=== PATIENT | female | born 1955 | race Caucasian/White ===

== ENCOUNTER 2016-06-15 07:59 | Emergency (ER) | payer BC ==
[~2016-06-15] VITALS: Ht 157.5 cm; Wt 87.7 kg
[~2016-06-15 07:59] MED LIST: AMLO-114 PO; AMX500 PO; ASCO500T3 PO; CRAN1CAP15 PO; DICL75TA2 PO; GLC/500 PO; GLUCTAB7 PO; LEVO175T PO; LOSA100T26 PO; MULTTAB58 PO; OMEG10007 PO; PRLSR20 PO; RANI300C PO; ROSU20TA PO
[2016-06-15 08:03] VITALS: TEMP 36.7; Ht 157.5 cm; Wt 87.7 kg
--- NOTE | 2016-06-15 08:53 | DIAGNOSTIC IMAGING REPORT ---
LEFT FOURTH FINGER 3 VIEWS HISTORY: Left fourth finger pain. COMPARISON: None. FINDINGS: There is no fracture or dislocation. Mild soft tissue swelling at the PIP joint. Mild osteoarthritis at the DIP and PIP joints. No radiopaque foreign bodies. IMPRESSION: No fracture or dislocation within the left fourth finger. Electronically signed by: Elder Eaton M.D. 06/15/2016 8:51 AM Dictated Date/Time: 06/15/2016 8:49 AM
--- NOTE | 2016-06-15 09:05 | EMERGENCY ROOM VISIT NOTE ---
History First contact with patient: 08:06 Chief Complaint: FINGER PAIN Stated Complaint: LEFT RING FINGER - PAIN History of Present Illness The patient is a 60 year old female who presents to the Emergency Room with complaints of a left ring finger injury last night when she fell off of her chair. She reports stubbing her finger, and has had persistent swelling and pain since that time. The patient did steve tape her fingers together last night, but reported significant pain overnight. She denies any paresthesias or numbness of the finger. The patient is pxbom-[id number], and rates her pain a 7 out of 10. Review of Systems 10 system review was performed and was negative except for pertinent positives and negatives as indicated in history of present illness Past Medical/Surgical History Medical Problems: (1) Diab Bhargavi Wo Compl, Type Ii Or Unspec Type, Not Uncntrld (2) Diverticulosis Colon (W/O Ment Of Hemorrhage) (3) Esophageal Reflux (4) Hyperlipidemia, Unspecified (5) Hypertension Nos (6) Hypothyroidism Nos (7) Kidney stone (8) Migraine Unspecified W/O Intractable Migraine (9) Obesity, Nos (10) Rectocele (11) Ulcer Of Esophagus W Bleeding (12) Uterine Endometriosis Surgical Problems: (1) Knee Joint Replacement Status (2) Tubal Ligation Status Family History FH: diabetes mellitus FH: gallbladder disease FH: heart disease FH: hypertension FH: kidney disease FH: lung disease Social History Smoking Status: Never Smoker Alcohol Use: occasionally Marital Status: Occupation Status: unemployed Current/Historical Medications Scheduled Amlodipine (Norvasc), 10 MG PO DAILY Ascorbic Acid (Vitamin C), 500 MG PO DAILY Cranberry-Vitamin C-Vitamin E (Cranberry), 1 CAP PO DAILY Diclofenac Sodium (Voltaren), 75 MG PO BID Fish Oil ([place]-3), 4 CAP PO DAILY Rxubynxehan-Ndteazsyuln-Zto C- (Glucosamine Chondroitin), 1 TAB PO DAILY Levothyroxine Sodium (Synthroid), 175 MCG PO DAILY Losartan Potassium & Hydrochlo (Losartan Potassium/Hydroc), 1 TAB PO DAILY Metformin Hcl (Glucophage), 1,000 MG PO BID Multiple Vitamin (Multivitamin), 1 TAB PO DAILY Omeprazole (Prilosec), 20 MG PO BID Ranitidine Hcl (Ranitidine Hcl), 300 MG PO HS Rosuvastatin Calcium (Crestor), 20 MG PO DAILY Scheduled PRN Amoxicillin (Amoxicillin), PO for PRN Allergies Coded Allergies: Aspirin (Verified Allergy, Severe, ESOPHAGEAL BLEED, 06/15/16) Codeine (Unverified Allergy, Unknown, GI SYMPTOMS, ALTERED MENTAL STATUS, 06/15/16) Oxycodone (Verified Adverse Reaction, Intermediate, NAUSEA, ALTERED MENTAL STATUS, 06/15/16) Uncoded Allergies: HYDROCODONE-ACETAMINOPHEN (Allergy, Unknown, GI SYMPTOMS, ALTERED MENTAL STATUS, 02/25/14) Physical Exam Vital Signs Date Time Temp Pulse Resp B/P Pulse Ox O2 Delivery O2 Flow Rate FiO2 06/15/16 08:03 36.7 67 16 155/88 97 Room Air Physical Exam CONSTITUTIONAL: Healthy and well nourished. Alert and oriented X 3 with positive affect. HEENT: Normocephalic, atraumatic. Pupils equal, round and reactive. NECK: Full active range of motion without discomfort. MUSCULOSKELETAL: Examination of the left ring finger shows tenderness to palpation through the middle phalanx and DIP region. Collateral ligaments of the PIP and DIP joint are intact. The patient has pain with flexion and extension. No tenderness to palpation through the proximal phalanx or MCP region. Capillary refill is less than 2 seconds. INTEGUMENTARY: No rash or other significant dermatologic conditions noted. NEUROLOGIC: Left fourth fingertip is sensory intact. Medical Decision & Procedures ER Provider Diagnostic Interpretation: My interpretation of left ring finger x-rays does not show any acute fractures or dislocations. Radiologist report is as follows: LEFT FOURTH FINGER 3 VIEWS HISTORY: Left fourth finger pain. COMPARISON: None. FINDINGS: There is no fracture or dislocation. Mild soft tissue swelling at the PIP joint. Mild osteoarthritis at the DIP and PIP joints. No radiopaque foreign bodies. IMPRESSION: No fracture or dislocation within the left fourth finger. ED Course Patient history and physical exam were performed. Nurse's notes were reviewed. The patient refused any analgesics. An ice pack was applied. X-rays of the left fourth finger were normal. The patient was encouraged to continue with steve taping and ice. She may perform range of motion exercises to prevent stiffness. Tylenol as needed for pain. The patient reports that she will be leaving town for 2 weeks starting next Saturday. She has seen Dr. Covarrubias in the past. She was encouraged to call his office for further reevaluation and management before departure. The patient was happy with plan of care, voice understanding of all discharge instructions, and rated her discomfort a 3 out of 10 at the conclusion of my exam. Medical Decision Impression Primary Impression: Left fourth finger contusion Departure Information Referrals Pro,Ankur Diego M.D. (PCP) Patient Instructions My [facility]
[2016-06-15 09:13] VITALS: BP 112/80; PULSE 61; O2SAT 93
[2016-07-30] MEDS ORDERED: TRAM-10 PO (08:48)
[2016-07-30] MEDS ORDERED: HYDR-5688 PO (08:48)
[2016-07-30] MEDS ORDERED: KETO10TA PO (08:48)
== END 2016-06-15 09:10 | disposition home or self-care (01) ==
LOC: C.EDB 08:00 → C.EDA 09:10
DX: S60.052A Contusion of left little finger without damage to nail, initial encounter (principal); W07.XXXA Fall from chair, initial encounter; E11.9 Type 2 diabetes mellitus without complications; K21.9 Gastro-esophageal reflux disease without esophagitis; E78.5 Hyperlipidemia, unspecified

== ENCOUNTER → 2016-07-03 | Outpatient (CLI) | payer BC ==
[~2016-07-03] MED LIST changes: +HYDR-5688 PO; +KETO10TA PO; +TRAM-10 PO
[2016-07-03 11:33] LABS: BLOOD UREA NITROGEN 18 mg/dl (7-18); BUN/CREATININE RATIO 21.1 (10-20); CALCIUM 9.3 mg/dl (8.5-10.1); CARBON DIOXIDE 29 mmol/L (21-32); CHLORIDE 100 mmol/L (98-107); CREATININE 0.84 mg/dl (0.60-1.20); GLUCOSE 105 mg/dl (70-99); POTASSIUM 4.1 mmol/L (3.5-5.1); SODIUM 138 mmol/L (136-145); TRIGLYCERIDES 278 mg/dl (0-150)
[2016-07-03 11:54] LABS: RATIO 31.3 mcg/mg (0-30.0)
[2016-07-03 12:16] LABS: ESTIMATED AVERAGE GLUCOSE 128 mg/dl; HA1C FLAG Normal (Normal)
== END | disposition home or self-care (01) ==
LOC: C.LAB1850 10:17
PROVIDERS: ATTEND Internal Medicine
DX: E03.9 Hypothyroidism, unspecified (principal); E78.5 Hyperlipidemia, unspecified; E11.9 Type 2 diabetes mellitus without complications

== ENCOUNTER → 2016-07-24 | Outpatient (CLI) | payer BC ==
--- NOTE | 2016-07-24 12:06 | DIAGNOSTIC IMAGING REPORT ---
MRI OF THE LUMBAR SPINE WITHOUT IV CONTRAST CLINICAL HISTORY: Low back pain. Left lower extremity radiculopathy. COMPARISON STUDY: No priors. TECHNIQUE: MRI of the lumbar spine is performed utilizing various T1 and T2-weighted sequences in the axial and sagittal planes. IV contrast was not administered for this examination. FINDINGS: Lumbar spine: Vertebral body height and alignment are maintained throughout the lumbar spine. Large hemangiomas are seen in the bodies of L1 and L2. The transverse and spinous processes appear intact. There is no evidence of spondylolysis. Marrow signal intensity is slightly heterogeneous. No destructive bony lesion is seen. Mild chronic degenerative endplate change is present at T11-T12. Intervertebral discs: There is mild degenerative disc desiccation throughout the lumbar spine. No significant loss of height is seen. Paraspinal cord: Visualized spinal cord is normal in morphology and signal intensity. The conus medullaris terminates at the level of L1. The nerve roots of the cauda equina are normal in morphology and signal intensity. L1-L2: Unremarkable. L2-L3: There is minimal posterior disc bulge eccentric to the right with annular fissure. The central canal and neural foramina are widely patent. L3-L4: Unremarkable. L4-L5: There is minimal disc bulge eccentric to the left. The central canal is clear. There is left-sided subarticular stenosis. The disc abuts the exiting left L4 and the transiting left L5 nerve roots. Facet arthropathy causes minimal left-sided neural foraminal stenosis. L5-S1: Facet arthropathy is of no consequence. The central canal and neural foramina are patent. Sacrum: Visualized sacrum is normal in morphology and signal intensity. Soft tissues: The paraspinous soft tissues are normal in appearance. The partially imaged retroperitoneal structures are grossly normal but incompletely evaluated. IMPRESSION: 1. There is no large disc herniation or central canal stenosis. 2. A disc bulge eccentric to left at L4-L5 abuts the exiting left L4 and the transiting left L5 nerve roots. 3. Mild spondylotic change at additional levels as detailed above. See discussion for mwjuc-hu-adfna analysis. Dictated: 07/24/2016 11:44 AM Transcribed: 07/24/2016 12:05 PM Jason Electronically signed by: Bro Avilez M.D. 07/24/2016 1:02 PM Dictated Date/Time: 07/24/2016 11:44 AM
== END | disposition home or self-care (01) ==
LOC: C.MRIBC 10:35
PROVIDERS: ATTEND Orthopaedic Surgery
DX: M54.5 Low back pain (principal); M79.605 Pain in left leg; R93.7 Abnormal findings on diagnostic imaging of other parts of musculoskeletal system

== ENCOUNTER → 2016-09-24 | Outpatient (CLI) | payer BC ==
[~2016-09-24] MED LIST changes: -HYDR-5688 PO; -KETO10TA PO; -LOSA100T26 PO; +LOSA100T33 PO
--- NOTE | 2016-09-25 13:07 | MAMMOGRAPHY REPORT ---
BILATERAL DIGITAL SCREENING MAMMOGRAM TOMOSYNTHESIS WITH CAD: 09/24/2016 CLINICAL HISTORY: Routine screening. Patient has no complaints. TECHNIQUE: Breast tomosynthesis in addition to standard 2D mammography was performed. Current study was also evaluated with a Computer Aided Detection (CAD) system. COMPARISON: Comparison is made to exams dated: 07/21/2015 mammogram, 02/09/2014 mammogram, 10/07/2012 mammogram, 07/19/2011 mammogram, 07/12/2010 mammogram - [facility], and 02/03/2009. BREAST COMPOSITION: The tissue of both breasts is heterogeneously dense, which may obscure small ma sses. FINDINGS: There are scattered benign-appearing microcalcifications in the breasts. No suspicious ma ss, architectural distortion or cluster of microcalcifications is seen. IMPRESSION: ACR BI-RADS CATEGORY 1: NEGATIVE There is no mammographic evidence of malignancy. A 1 year screening mammogram is recommended. The p atient will receive written notification of the results. Approximately 10% of breast cancers are not detected with mammography. A negative mammographic repor t should not delay biopsy if a clinically suggestive mass is present. Yu Winkler M.D. ay/:09/24/2016 16:43:28 Television Engineer: Kelsi ARNOLD(R)(M), [facility] letter sent: Normal 1/2 BI-RADS Code: ACR BI-RADS Category 1: Negative
== END | disposition home or self-care (01) ==
LOC: C.MAMM 08:48
PROVIDERS: ATTEND Obstetrics & Gynecology
DX: Z12.31 Encounter for screening mammogram for malignant neoplasm of breast (principal)

== ENCOUNTER → 2016-11-05 | Outpatient (CLI) | payer BC ==
[2016-11-05 13:01] LABS: ESTIMATED AVERAGE GLUCOSE 134 mg/dl; HA1C FLAG Normal (Normal)
[2016-11-05 13:21] LABS: ALT/SGPT 35 U/L (12-78); AST/SGOT 11 U/L (15-37); BLOOD UREA NITROGEN 20 mg/dl (7-18); BUN/CREATININE RATIO 24.7 (10-20); CALCIUM 8.8 mg/dl (8.5-10.1); CARBON DIOXIDE 30 mmol/L (21-32); CHLORIDE 102 mmol/L (98-107); GLUCOSE 116 mg/dl (70-99); POTASSIUM 3.6 mmol/L (3.5-5.1); SODIUM 140 mmol/L (136-145)
[2016-11-05 13:32] LABS: CHOLESTEROL 127 mg/dl (0-200); CHOLESTEROL/HDL RATIO 3.2; HDL CHOLESTEROL 40 mg/dl; LDL CHOLESTEROL CALCULATED 34 mg/dl; THYROID STIMULATING HORMONE 0.036 uIu/ml (0.300-4.500); TRIGLYCERIDES 263 mg/dl (0-150); VERY LOW DENSITY LIPOPROT CALC 53 mg/dl
== END | disposition home or self-care (01) ==
LOC: C.LAB1850 10:07
PROVIDERS: ATTEND Internal Medicine
DX: E78.5 Hyperlipidemia, unspecified (principal); E11.9 Type 2 diabetes mellitus without complications; E03.9 Hypothyroidism, unspecified

== ENCOUNTER → 2017-03-18 | Outpatient (CLI) | payer BC ==
[2017-03-18 10:02] LABS: BLOOD UREA NITROGEN 18 mg/dl (7-18); BUN/CREATININE RATIO 28.3 (10-20); CALCIUM 9.5 mg/dl (8.5-10.1); CARBON DIOXIDE 29 mmol/L (21-32); CHLORIDE 103 mmol/L (98-107); CREATININE 0.65 mg/dl (0.60-1.20); GLUCOSE 117 mg/dl (70-99); POTASSIUM 3.7 mmol/L (3.5-5.1); SODIUM 139 mmol/L (136-145)
[2017-03-18 10:13] LABS: CHOLESTEROL 118 mg/dl (0-200); CHOLESTEROL/HDL RATIO 3.2; HDL CHOLESTEROL 37 mg/dl; LDL CHOLESTEROL CALCULATED 19 mg/dl; THYROID STIMULATING HORMONE 0.005 uIu/ml (0.300-4.500); TRIGLYCERIDES 310 mg/dl (0-150); VERY LOW DENSITY LIPOPROT CALC 62 mg/dl
[2017-03-18 10:13] LABS: CREATININE RANDOM URINE 34.9 mg/dl
[2017-03-18 10:16] LABS: ESTIMATED AVERAGE GLUCOSE 123 mg/dl; HA1C FLAG Normal (Normal)
[2017-03-18 10:27] LABS: RATIO 47.9 mcg/mg (0-30.0)
== END | disposition home or self-care (01) ==
LOC: C.LAB1850 08:10
PROVIDERS: ATTEND Internal Medicine
DX: E11.9 Type 2 diabetes mellitus without complications (principal); E03.9 Hypothyroidism, unspecified; E78.5 Hyperlipidemia, unspecified

== ENCOUNTER → 2017-07-11 | Outpatient (CLI) | payer BC ==
--- NOTE | 2017-07-11 11:11 | DIAGNOSTIC IMAGING REPORT ---
R ANKLE MIN 3 VIEWS ROUTINE HISTORY: 61 years-old Female S99.911A Right ankle injuryinclude posterior [id number] acute right ankle pain status post injury COMPARISON: None available TECHNIQUE: 3 views of the right ankle FINDINGS: Moderate sized Achilles and plantar enthesophytes about the calcaneus. Mild dorsal spurring about the midfoot. There is an irregular ill-defined linear lucency involving the distal fibula seen only on the oblique view with moderate associated soft tissue swelling and small joint effusion. The distal tibia appears intact. No osteochondral defect of the talar dome. IMPRESSION: Suspected acute nondisplaced fracture of the distal fibula with moderate ankle soft tissue swelling and small joint effusion. The above report was generated using voice recognition software. It may contain grammatical, syntax or spelling errors. Electronically signed by: Brian Gomes M.D. 07/11/2017 11:09 AM Dictated Date/Time: 07/11/2017 11:08 AM
== END | disposition home or self-care (01) ==
LOC: C.RAD1850 10:56
PROVIDERS: ATTEND Internal Medicine
DX: S99.911A Unspecified injury of right ankle, initial encounter (principal); X58.XXXA Exposure to other specified factors, initial encounter

== ENCOUNTER → 2017-12-12 | Outpatient (CLI) | payer BC ==
[~2017-12-12] MED LIST changes: -AMLO-114 PO; +AMLO10TA3 PO
--- NOTE | 2017-12-12 16:03 | DIAGNOSTIC IMAGING REPORT ---
RIGHT ANKLE MRI HISTORY: RT ANKLE INJURY, FIBULA FX TECHNIQUE: Multiplanar multisequence MRI of the right ankle was performed without the use of intravenous contrast. COMPARISON STUDY: Right ankle radiograph 07/11/2017. FINDINGS: No fracture or dislocation within the right ankle. Patchy areas of marrow edema within the medial and lateral cuneiforms bones as well as the third and fourth proximal metatarsals. There is trace joint effusion at the intertarsal joints. This favors chronic degenerative change or chronic repetitive trauma. Mild dorsal subcutaneous edema within the midfoot. Moderate osteoarthritis at the first MTP joint with marrow edema at the head of the first metatarsal. This is also likely due to chronic degenerative change. The plantar fascia is within normal limits. The flexor, extensor, and Achilles tendons are intact. Mild thickening and increased T2 signal within the proximal peroneus longus tendon consistent with a mild tendinopathy. The anterior talofibular and calcaneal fibular ligaments appear to be torn. There is minimal soft tissue edema at these locations suggesting subacute injury. There is also edema within the posterior talofibular ligament suggestive of a partial tear. The medial stabilizing ligaments are intact. IMPRESSION: 1. No acute fracture or dislocation within the right ankle. Specifically there is no evidence for a healing fracture within the distal fibula. 2. Subacute lateral ankle sprain as described above. 3. Patchy areas of marrow edema within the medial and lateral cuneiforms as well as the base of the third and fourth metatarsals. There is trace fluid within the intertarsal and Lisfranc joints. This may be due to chronic degenerative change or chronic repetitive trauma. 4. Mild peroneus longus tendinopathy. Electronically signed by: Elder Eaton M.D. 12/12/2017 4:01 PM Dictated Date/Time: 12/12/2017 3:45 PM
== END | disposition home or self-care (01) ==
LOC: C.MRI 14:29
PROVIDERS: ATTEND Internal Medicine
DX: S93.401A Sprain of unspecified ligament of right ankle, initial encounter (principal); X58.XXXA Exposure to other specified factors, initial encounter

== ENCOUNTER 2020-02-23 06:51 | Inpatient (IN) ==
--- NOTE | 2020-01-25 14:17 | PAT Medication Instructions ---
Medication Instructions Date of Service January 25, 2020 Home Medications Medication Instructions Recorded tramadol 50 mg tablet 50 mg PO TID PRN #90 tab 12/09/19 cranberry conc-ascorbic acid 1 cap PO QAM multivitamin 1 tab PO QPM omega 9-tsi-pcq-fish oil [[place]-3] 1 cap PO BID amoxicillin 500 mg capsule 2,000 mg PO UD PRN celecoxib 100 mg capsule 100 mg PO QAM cholecalciferol (vitamin D3) 1,250 mcg (50,000 unit) capsule 50,000 units PO WK hydroxychloroquine 200 mg tablet 200 mg PO BID tramadol 50 mg tablet 50 mg PO TID PRN acetaminophen [Tylenol Arthritis] 1,300 mg PO Q12H amlodipine [Norvasc] 10 mg PO HS docusate sodium [Stool Softener] 100 mg PO DAILY PRN famotidine 40 mg PO BID gabapentin 100 mg PO UD hydrochlorothiazide 12.5 mg PO QAM levothyroxine 150 mcg PO QAM losartan 50 mg PO HS omeprazole 40 mg PO QAM rosuvastatin 20 mg PO HS sitagliptin [Januvia] 100 mg PO QAM Continue as directed amoxicillin 500 mg capsule 2,000 mg PO UD PRN ASK your surgeon for instructions celecoxib 100 mg capsule 100 mg PO QAM ASK your prescriber and surgeon hydroxychloroquine 200 mg tablet 200 mg PO BID STOP taking 2 weeks before surgery If surgery is within 2 weeks, stop taking as soon as possible. cranberry conc-ascorbic acid 1 cap PO QAM omega 4-trf-tik-fish oil [[place]-3] 1 cap PO BID DO NOT take the morning of surgery cholecalciferol (vitamin D3) 1,250 mcg (50,000 unit) capsule 50,000 units PO WK docusate sodium [Stool Softener] 100 mg PO DAILY PRN hydrochlorothiazide 12.5 mg PO QAM sitagliptin [Januvia] 100 mg PO QAM Take morning of surgery With a small sip of water, OTHERWISE NOTHING TO EAT OR DRINK AFTER MIDNIGHT: tramadol 50 mg tablet 50 mg PO TID PRN (if needed, may be taken up to four hours before surgery) acetaminophen [Tylenol Arthritis] 1,300 mg PO Q12H (if needed, may be taken up to four hours before surgery) famotidine 40 mg PO BID gabapentin 100 mg PO UD levothyroxine 150 mcg PO QAM omeprazole 40 mg PO QAM Take evening before surgery multivitamin 1 tab PO QPM tramadol 50 mg tablet 50 mg PO TID PRN (if needed) acetaminophen [Tylenol Arthritis] 1,300 mg PO Q12H (if needed) amlodipine [Norvasc] 10 mg PO HS docusate sodium [Stool Softener] 100 mg PO DAILY PRN (if needed) famotidine 40 mg PO BID gabapentin 100 mg PO UD losartan 50 mg PO HS rosuvastatin 20 mg PO HS Other Notes If you have any questions please call us at [phone] or [phone] or [phone] or [phone]
--- NOTE | 2020-01-26 15:44 | Anesthesiology Consultation ---
Date of Service January 26, 2020 Assessment & Plan (1) Encounter for pre-operative examination: COVID Status: As of 01/25 assessment, patient denies travel to endemic area, known exposure/sick contacts, or symptoms of COVID19. Patient instructed that they and their household members must follow strict social distancing guidelines, wear a mask in public and avoid travel for 14 days prior to surgery. Preoperative COVID19 testing to be completed prior to surgery per surgeon's arr angements. Patient made aware to self-isolate as much as possible between COVID testing and surgery. Chart Review Chart Review: Acceptable Risk for Surgery and Patient seen in Pre Admission Testing Teaching & Discussion Instructed NPO after midnight before surgery, except medications with 15 cc of water. Medication instructions provided according to the PAT guidelines. History Surgery Operation Date: 02/23/20 09:05 Proposed Procedures p Left Total Shoulder Arthroplasty - Pranay Johnson, Height/Weight Height: 5 ft 2 in Weight: 88.7 kg Allergies Allergy/AdvReac Type Severity Reaction Status Date / Time aspirin Allergy Severe ESOPHAGEAL Verified 01/15/20 10:25 BLEED codeine Allergy Unknown GI Verified 01/15/20 10:25 SYMPTOMS, ALTERED MENTAL STATUS acetaminophen [From Percocet] Allergy Vomiting, Verified 01/22/20 09:05 dizziness oxycodone [From Percocet] Allergy Vomiting, Verified 01/22/20 09:05 dizziness Medications Home Medications Medication Instructions Recorded Confirmed Last Taken cranberry conc-ascorbic acid 1 cap PO QAM 03/31/18 01/26/20 03/30/18 multivitamin 1 tab PO QPM 03/31/18 01/26/20 03/30/18 omega 9-lfv-bsc-fish oil [[place]-3] 1 cap PO BID 03/31/18 01/26/20 03/30/18 amoxicillin 500 mg capsule 2,000 mg PO UD PRN 02/17/19 01/26/20 Unknown celecoxib 100 mg capsule 100 mg PO QAM 11/27/19 01/26/20 Unknown cholecalciferol (vitamin D3) 1,250 50,000 units PO WK cap 11/27/19 01/26/20 U nknown mcg (50,000 unit) capsule hydroxychloroquine 200 mg tablet 200 mg PO BID 11/27/19 01/26/20 Unknown acetaminophen [Tylenol Arthritis] 1,300 mg PO Q12H 01/22/20 01/26/20 Unknown amlodipine [Norvasc] 10 mg PO HS 01/22/20 01/26/20 Unknown docusate sodium [Stool Softener] 100 mg PO DAILY PRN 01/22/20 01/26/20 Unknown famotidine 40 mg PO BID 01/22/20 01/26/20 Unknown gabapentin 100 mg PO UD 01/22/20 01/26/20 Unknown hydrochlorothiazide 12.5 mg PO QAM 01/22/20 01/26/20 Unknown levothyroxine 150 mcg PO QAM 01/22/20 01/26/20 Unknown losartan 50 mg PO HS 01/22/20 01/26/20 Unknown omeprazole 40 mg PO QAM 01/22/20 01/26/20 Unknown rosuvastatin 20 mg PO HS 01/22/20 01/26/20 Unknown sitagliptin [Januvia] 100 mg PO QAM 01/22/20 01/26/20 Unknown tramadol 50 mg tablet 50 mg PO TID PRN #90 tab 01/26/20 Unknown Past Medical History Medical History GERD (gastroesophageal reflux disease) Hyperlipidemia, unspecified Controlled Hypertension Controlled Hypothyroidism Osteoarthritis reason for plaquenil; denies RA, Follows with Dr. Mcdonald. 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; no palpitations for > 1 yr Type 2 diabetes mellitus NIDDM Vitamin D deficiency Exercise / Class Metabolic Activity II 4-5 Yardwork/Stairs/Walk up hill (Denies CP or SOB with 1 FOS) Past Family History Family History Father Hypertension Coronary arteriosclerosis Uncle Colorectal cancer Grandmother (Maternal) Ovarian cancer Breast cancer Aunt Ovarian cancer Breast cancer Sister Hyperlipidemia Hypertension Mother Osteoporosis Rheumatic heart disease Other No family history of adverse response to anesthesia Past Surgical History Surgical History H/O unilateral salpingectomy History of carpal tunnel surgery BL History of cryosurgery History of partial hysterectomy History of partial knee replacement Rt History of surgical removal of pilonidal cyst History of tonsillectomy and adenoidectomy Hx of oral surgery S/P arthroscopy of knee S/P eye surgery BL -laser S/P laparoscopy with fulguration of oviducts S/P skin biopsy Slow to wake up after anesthesia Past Anesthesia History No Hx of Anesthesia Complications (other than 'slow to wake') and No Family Hx of Anesthesia Complications History of PONV No Hx of Motion Sickness and History of PONV Social History Smoking Status: Never smoker Do You Dip or Chew Tobacco: No Hx Alcohol Use: Yes (rare, few times per year) alcohol intake frequency: holidays/special occasions only Hx Substance Use: No substance use type: does not use Review of Systems Pt denies any recent chest pain, shortness of breath, palpitations, fever, URI, or uncontrolled acid reflux. +post nasal drip/allergic cough due to allergies Physical Exam Vital Signs BP: 114/76 P: 73bpm SPO2: 95% RA T: 98.0 F R: 16 Constitutional + obese ENMT Mouth: + dental restorations (crowns on a few molars); no chipped teeth and no loose teeth Thyromental Distance: > or= 3.5 Finger Breadths Mallampati Class: II Neck + short neck; neck extension not limited Respiratory normal respiratory effort Auscultation: lungs clear to auscultation bilaterally Cardiovascular Rate/Rhythm: regular rate and regular rhythm Heart Sounds: no murmur Vessels: no carotid bruit Extremities: no edema Testing Laboratory Results 01/26/20 16:01 01/26/20 16: PT 10.3 Seconds (9.0-12.0) 01/26/20 16: INR 1.0 (0.9-1.1) 01/26/20 16: APTT 29.6 Seconds (21.0-31.0) 01/26/20 16:01 Hemoglobin A1c 6.4 % (4.5-5.6) H 01/26/20 16: Blood Type O Positive 01/26/20 16: Antibody Screen NEGATIVE 01/26/20 16: Electrocardiogram Date: 01/26/20 Findings: + NSR @ (64bpm) Nonspecific ST abnormality. Prolonged QT. Compared to EKG from 03/31/18, NSTWA no longer evident in anterior leads. Chest X-Ray Date: 01/26/20 FINDINGS: Cardiomediastinal and hilar silhouettes are within normal limits. Calcific pl aque of the thoracic aortic arch. No pneumothorax, pleural effusion, airspace consolidation or overt pulmonary edema. Degenerative changes of the shoulders and spine. Mild sigmoidal scoliosis of the thoracolumbar spine. IMPRESSION: No acute process.
[2020-01-26 16:28] LABS: Basophils # (auto) 0.05 K/uL (0-0.2); Basophils % (auto) 0.4 %; Eosinophils # (auto) 0.31 K/uL (0-0.5); Eosinophils % (auto) 2.7 %; Hematocrit (blood only) 43.5 % (37-47); Hemoglobin 14.2 g/dL (12.0-16.0); Immature Granulocytes # (auto) 0.02 K/uL (0.00-0.02); Immature Granulocytes % (auto) 0.2 %; Lymphocytes # (auto) 3.15 K/uL (1.2-3.4); Lymphocytes % (auto) 27.4 %; Mean Corpuscular Hemoglobin 29.8 pg (25-34); Mean Corpuscular Hgb Conc 32.6 g/dL (32-36); Mean Corpuscular Volume 91.2 fL (80-100); Mean Platelet Volume 10.5 fL (7.4-10.4); Monocytes # (auto) 0.79 K/uL (0.11-0.59); Monocytes % (auto) 6.9 %; Neutrophils # (auto) 7.18 K/uL (1.4-6.5); Neutrophils % (auto) 62.4 %; Platelet Count 340 K/uL (130-400); RDW Coefficient of Variation 13.7 % (11.5-14.5); RDW Standard Deviation 45.3 fL (36.4-46.3); Red Blood Count 4.77 M/uL (4.2-5.4)
[2020-01-26 16:39] LABS: BUN Creatinine Ratio 21.5 (10-20); Calcium 10.1 mg/dl (8.5-10.1); Creatinine Clr Calc Pharmacy 66.7 ml/min; Est GFR (Non-African American) 69.9; Potassium 4.2 mmol/L (3.5-5.1)
[2020-01-26 16:40] LABS: Partial Thromboplastin Ratio 1.1; Partial Thromboplastin Time 29.6 Seconds (21.0-31.0); Prothrombin Time 10.3 Seconds (9.0-12.0)
--- NOTE | 2020-01-26 17:09 | XRay Report ---
XR chest Pre-admission PA/Lat HISTORY: 64 years-old Female pat preoperative exam. No acute chest complaints COMPARISON: Chest radiograph 03/31/2018 TECHNIQUE: PA and lateral views of the chest FINDINGS: Cardiomediastinal and hilar silhouettes are within normal limits. Calcific plaque of the thoracic aor tic arch. No pneumothorax, pleural effusion, airspace consolidation or overt pulmonary edema. Degener ative changes of the shoulders and spine. Mild sigmoidal scoliosis of the thoracolumbar spine. IMPRESSION: No acute process. ACT 112: Negative or not required by law. The above report was generated using voice recognition software. It may contain grammatical, syntax o r spelling errors. Electronically signed by: Brian Gomes M.D. 01/26/2020 5:08 PM
--- NOTE | 2020-01-27 06:09 | Electrocardiogram Report ---
Test Reason : Blood Pressure : / mmHG Vent. Rate : 064 BPM Atrial Rate : 064 BPM P-R Int : 168 ms QRS Dur : 090 ms QT Int : 464 ms P-R-T Axes : 059 018 076 degrees QTc Int : 479 ms Normal sinus rhythm Nonspecific ST abnormality Prolonged QT Abnormal ECG When compared with ECG of 31-MAR-2018 05:59, Nonspecific T wave abnormality no longer evident in Anterior leads Confirmed by Refugio Granados ([id number]) on 01/27/2020 6:09:20 AM Referred By: Pranay Johnosn Confirmed By:Refugio Granados
[2020-01-27 06:30] LABS: Estimated Average Glucose 137 mg/dl; Hemoglobin A1C 6.4 % (4.5-5.6)
--- NOTE | 2020-02-18 09:45 | History & Physical Report ---
Date of Service February 18, 2020 Assessment & Plan (1) DJD of left shoulder: We will proceed with a left total shoulder arthroplasty. Postoperatively she will be placed in a sling and kept overnight in the hospital for postoperative medical management. She plans to use energy physical therapy upon discharge. Present on Admission?: Yes History of Present Illness Chief Complaint: Primary osteoarthritis of the left shoulder Primary Care Provider: Ankur Love MD Xiomy is a pleasant 64-year-old female who is been dealing with a several year history of increasing left shoulder pain. She is been followed by passenger solicitor in [place]. She is on Plaquenil as well as other anti-inflammatory medications. Unfortunate she still having a lot of continued shoulder pain. X-rays and an MRI showed advanced osteoarthritis of the left shoulder. After failing conservative treatment, she has elected to proceed with a left total shoulder arthroplasty. Allergies Allergy/AdvReac Type Severity Reaction Status Date / Time aspirin Allergy Severe ESOPHAGEAL Verified 01/29/20 09:03 BLEED codeine Allergy Unknown GI Verified 01/29/20 09:03 SYMPTOMS, ALTERED MENTAL STATUS acetaminophen [From Percocet] Allergy Vomiting, Verified 01/29/20 09:03 dizziness oxycodone [From Percocet] Allergy Vomiting, Verified 01/29/20 09:03 dizziness Home Medications Home Medications Medication Instructions Recorded Confirmed Type cranberry conc-ascorbic acid 1 cap PO QAM 03/31/18 01/29/20 History multivitamin 1 tab PO QPM 03/31/18 01/29/20 History omega 0-ssn-gvj-fish oil [[place]-3] 1 cap PO BID 03/31/18 01/29/20 History celecoxib 100 mg capsule 100 mg PO QAM 11/27/19 01/29/20 History cholecalciferol (vitamin D3) 1,250 50,000 units PO WK cap 11/27/19 01/29/20 History mcg (50,000 unit) capsule hydroxychloroquine 200 mg tablet 200 mg PO BID 11/27/19 01/29/20 History acetaminophen [Tylenol Arthritis] 1,300 mg PO Q12H 01/22/20 01/29/20 History docusate sodium [Stool Softener] 100 mg PO DAILY PRN 01/22/20 01/29/20 History gabapentin 100 mg PO UD 01/22/20 01/29/20 History hydrochlorothiazide 12.5 mg PO QAM 01/22/20 01/29/20 History levothyroxine 150 mcg PO QAM 01/22/20 01/29/20 History losartan 50 mg PO HS 01/22/20 01/29/20 History omeprazole 40 mg PO QAM 01/22/20 01/29/20 History rosuvastatin 20 mg PO HS 01/22/20 01/29/20 History sitagliptin [Januvia] 100 mg PO QAM 01/22/20 01/29/20 History tramadol 50 mg tablet 50 mg PO TID PRN #90 tab 01/26/20 01/29/20 Rx hydrocodone-acetaminophen [Ruby] 1 tab PO Q6H PRN #10 tab 01/27/20 01/29/20 Rx tamsulosin [Flomax] 0.4 mg PO DAILY #5 cap 01/27/20 01/29/20 Rx amlodipine 10 mg tablet 10 mg PO HS #30 tab 01/28/20 01/29/20 Rx Past Med/Surg History Medical History GERD (gastroesophageal reflux disease) Hyperlipidemia, unspecified Controlled Hypertension Controlled Hypothyroidism Osteoarthritis reason for plaquenil; denies RA, Follows with Dr. Mcdonald. 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; no palpitations for > 1 yr Type 2 diabetes mellitus NIDDM Vitamin D deficiency Surgical History H/O unilateral salpingectomy History of carpal tunnel surgery BL History of cryosurgery History of partial hysterectomy History of partial knee replacement Rt History of surgical removal of pilonidal cyst History of tonsillectomy and adenoidectomy Hx of oral surgery S/P arthroscopy of knee S/P eye surgery BL -laser S/P laparoscopy with fulguration of oviducts S/P skin biopsy Slow to wake up after anesthesia Family History Father Hypertension Coronary arteriosclerosis Uncle Colorectal cancer Grandmother (Maternal) Ovarian cancer Breast cancer Aunt Ovarian cancer Breast cancer Sister Hyperlipidemia Hypertension Mother Osteoporosis Rheumatic heart disease Other No family history of adverse response to anesthesia Social History Smoking Status: Never smoker Second Hand Exposure: Yes (as a child); Hx Alcohol Use: Yes (rare, few times per year) Hx Substance Use: No Preferred Language: Nauruan Communication Ability: Effective Visual Impairment: No Limitations Hearing Ability: Normal Steam Trap Man Required: No Beliefs That Will Affect Care: None marital status: Current Living Situation: Spouse current occupational status: employed Feels Safe at Home: Yes Childhood Exposure to Second-Hand Smoke: No Seatbelt Use: always Assistive Devices: Glasses Review of Systems Review of Systems: All systems reviewed & are unremarkable except as noted in HPI & below Physical Exam Constitutional: WD/WN, vitals as above Eyes: PERRL, conjunctivae normal, anicteric sclerae ENMT: external ear and nose normal, oropharynx normal Neck: trachea midline, no thyromegaly Respiratory: normal respiratory effort Cardiovascular: RRR, no murmur, no edema Gastrointestinal (Abdomen): normal bowel sounds, soft, nontender, no h epatosplenomegaly Musculoskeletal: Physical examination of the left shoulder reveals decreased range of motion and crepitis throughout. There is good strength with full can testing and external rotation. There is tenderness palpation along the anterior glenohumeral joint line. The right upper extremity is neurovascularly intact. Psychiatric: A+Ox3, euthymic affect Results & Data Results & Data ([facility]) Diagnostic Findings Radiographs of the left shoulder show osteoarthritis of the glenohumeral joint. There is joint space narrowing, osteophyte formation, and lquz-ow-tric articulation. PG Care Time/CCT Total # of Minutes Spent Total Time Spent with Patient: Total time spent is greater than 50% in coordination of care (as documented) at patient's floor/unit and/or counseling patient: Coding Level of Care Code 84081 Initial Inpt Care Lvl 2 Diagnoses DJD of left shoulder M19.012
[~2020-02-23 06:51] MED LIST changes: +ACETAMINOPHEN 500 MG TAB PO SCH; -AMLO10TA3 PO; -AMX500 PO; -ASCO500T3 PO; +BUPIVACAINE 0.5 % 5 MG/1 ML PF 10ML VIAL ONE; +CEFAZOLIN 2000MG 2,000 MG/15 ML SYR IV SCH; -CRAN1CAP15 PO; -DICL75TA2 PO; +FAMOTIDINE 20 MG TAB PO SCH; +GABAPENTIN 300 MG CAP PO SCH; -GLC/500 PO; -GLUCTAB7 PO; -LEVO175T PO; -LOSA100T33 PO; +LR 15ML/HR IV SCH; +LR 60ML/HR IV SCH; -MULTTAB58 PO; -OMEG10007 PO; -PRLSR20 PO; -RANI300C PO; +ROPIVACAINE 0.5% HCL/PF 150 MG, BUPIVACAINE 0.5% MPF 30 ML, EPINEPHrine 30MG/30ML (OR U... INSTIL SCH; -ROSU20TA PO; -TRAM-10 PO; +TRANEXAMIC ACID 1,000 MG **IV Intra-op IV SCH; +TRANEXAMIC ACID 1,000 MG **IV Pre-op IV SCH; +dexAMETHasone 4 MG TAB PO SCH
[2020-02-23] MEDS ORDERED: fentaNYL citrate 100 MCG/2 ML VIAL ONE (08:07)
[2020-02-23] MEDS ORDERED: ONDANSETRON INJ 2 MG/ML 2 ML VIAL ONE (08:07)
[2020-02-23] MEDS ORDERED: DEXAMETHASONE SOD INJ 4 MG/ML VIAL ONE (08:07)
[2020-02-23] MEDS ORDERED: MIDAZOLAM HCL 1 MG/ML 2ML VIAL ONE (08:07)
[2020-02-23] MEDS ORDERED: PROPOFOL IV EMULSION 10 MG/ML 20 ML VIAL IV ONE (08:07)
[2020-02-23] MEDS ORDERED: NEOSTIGMINE METHYLSULFATE 5 MG/5 ML SYR ONE (08:07)
[2020-02-23] MEDS ORDERED: LIDOCAINE HCL 2% 2 ML VIAL/AMP(20MG/ML) INFIL ONE (08:07)
[2020-02-23] MEDS ORDERED: GLYCOPYRROLATE 0.2 MG/ML VIAL ONE (08:07)
[2020-02-23] MEDS ORDERED: ROCURONIUM BROMIDE 10 MG/ML 5 ML VIAL IV ONE (08:12)
[2020-02-23] MEDS ORDERED: LARYING-O-JET KIT (LTA) ONE (08:12)
[2020-02-23] MEDS ORDERED: fentaNYL citrate 100 MCG/2 ML VIAL IV PRN (08:22)
[2020-02-23] MEDS ORDERED: ONDANSETRON INJ 2 MG/ML 2 ML VIAL IV PRN ×2 (08:22→12:33)
[2020-02-23] MEDS ORDERED: ePHEDrine sulfate 50 MG/ML AMP IV PRN (08:22)
[2020-02-23] MEDS ORDERED: ATROPINE SULFATE 0.1 MG/ML 10ML SYR IV PRN (08:22)
[2020-02-23] MEDS ORDERED: SCOPOLAMINE 1.5 MG TDSY TD STA (08:23)
[2020-02-23] MEDS ORDERED: SCOPOLAMINE 1.5 MG TDSY TD ONE (08:25)
--- NOTE | 2020-02-23 08:41 | History & Physical Bridge Note ---
Date of Service February 23, 2020 History & Physical Bridge Note I have examined the patient, reviewed the History & Physical and in the interval since the performance of the History & Physical I have noted the following changes of clinical significance: no changes noted
[2020-02-23] MEDS ORDERED: PHENYLEPHRINE HCL 10 MG/ML VIAL ONE (09:46)
[2020-02-23] MEDS ORDERED: ePHEDrine sulfate 50 MG/ML SYR ONE (09:53)
--- NOTE | 2020-02-23 10:43 | Operative Report ---
PG Post Operative Report Pre & Post Diagnosis Operation Date: 02/23/20 09:05 Pre-Op Diagnosis: Left Shoulder Degenerative Joint Disease with tendinopathy of the long head of the biceps tendon Post-Op Diagnosis: Left Shoulder Degenerative Joint Disease with tendinopathy of the long head of the biceps tendon I identified the patient and participated in the time-out.: Yes Procedure Operation Date: 02/23/20 09:05 Actual Procedures p Left Total Shoulder Arthroplasty, Cemented with open biceps tenodesis as a distinct and separate procedure (modifier 59) (Left) - Pranay Johnson DO Surgeon Pranay Johnson DO Dental Laboratory Supervisor Pranay Berger PAC Estimated Blood Loss 200 Findings Consistent with Post-Op Diagnosis Specimens Left humeral head Complications none Disposition Disposition: Recovery Room Indications Xiomy is a pleasant 64-year-old female who presented my office with chronic increasing left shoulder pain. X-rays and clinical examination were diagnostic for advanced osteoarthritis of the left shoulder. After failing conservative treatment, she elected to proceed with a left total shoulder arthroplasty. Description of Procedure A CPT code modifier 59: The long head of the biceps tendon was enlarged and inflamed consistent with tendinopathy. A tenodesis was opted. This was a separate and distinct portion of the procedure. For these reasons, a CPT code modifier 59 will be added to this case. Implants used: I used a [employer] Comprehensive total shoulder arthroplasty system with a size 10 press fit micro humeral stem, a size 46 x 18 eccentric humeral head, and a size 3 glenoid with a trabecular metal peg. The glenoid was cemented in place with Palacos G cement. Xiomy arrived at [facility], [place] for the above procedure. She was seen in the preoperative holding area and the operative extremity was identified and signed. She was given a preoperative antibiotic, TXA, and an interscalene nerve block. She was taken back to the operating room, laid on table in supine position, and put under general anesthesia. She was then put into the beachchair position. The shoulder was then prepped and draped in sterile fashion. A timeout was done and the patient and the operative extremity was properly identified. A deltopectoral approach was used. Dissection was taken down through the fascia and the deltoid was retracted laterally and the conjoined tendon was retracted medially. The anterior shoulder was exposed. The biceps groove was opened up and the biceps tendon was examined extensively. The biceps tendon demonstrated enlargement and inflammatory changes consistent with longstanding inflammation in the context of osteoarthritis. The long head of the biceps tendon was then tenodesed to the upper border of the pectoralis major. This was a separate and distinct portion of the procedure. The subscapularis was then released off the lesser tuberosity with a centimeter of cuff tissue remaining. The inferior cap akhil was released and the humeral head was dislocated. The rotator cuff was inspected and intact. A canal finding reamer was sent down the center of the humeral canal. Sequential reaming up to a size 10 reamer was done. Offset reamer a proximal humeral resection guide was placed. The proximal humerus was resected at 135 of inclination and 30 of retroversion. Inferior osteophytes were then removed and the glenoid was exposed. Time was spent doing an appropriate labral release. The glenoid measured to be a size 3. A 3.2 mm Steinmann pin was placed in the central hole of the glenoid vault pin guide. The glenoid was then reamed with a propeller reamer. The central post cutter was then used to prepare for the central boss. The cannulated peripheral peg drill guide was then placed and 3 peg holes were drilled. The final size 3 glenoid was then cemented in place with Palacos G cement. Surrounding soft tissues were then injected with 100 cc of an orthopedic pain control cocktail. Once cement had dried the proximal humerus was once again exposed. Sequential broaching of the humerus up to a size 10 broach was done. Off that broach a size 46 x 18 eccentric humeral head was trialed. The shoulder was then reduced, brought through a full range of motion, and felt to be stable. The shoulder was then dislocated and the broach was removed. The final size 10 micro humeral stem implant was then impacted into place. A size 46 x 18 eccentric humeral head was then impacted onto the humeral stem. The shoulder was then reduced and once again brought through a full range of motion and felt to be stable. The subscapularis was then tenodesed back to the lesser tuberosity with transosseous FiberWire sutures and side to side sutures with the arm in 45 of external rotation. 2 sutures were placed in the lateral rotator interval. A dilute betadyne lavage was then done for 3 minutes. The joint was then irrigated with normal saline solution. Hemostasis was obtained. The interval was closed with 2-0 Vicryl suture. The skin was closed with 2-0 Vicryl and sheri. A Silverlon dressing was placed and the arm was rested in a regular arm sling. She was then extubated and transferred to a hospital bed. She was taken to the postanesthesia care unit in stable condition. She tolerated the procedure well. Pranay Berger PA-C, was present for the entire procedure. He was critical for patient positioning, prepping, draping, retraction exposure, wound closure and application of sterile dressing. I attest to the content of the Intraoperative Record and any orders documented therein. Any exceptions are noted below.
--- NOTE | 2020-02-23 11:46 | Anesthesiology Progress Note ---
Date of Service February 23, 2020 Anesthesia Post Procedure Vital Signs Vital Signs: Temp Pulse Pulse Resp BP BP Pulse Ox 02/23/20 11:40 87 16 124/67 96 02/23/20 11:30 36.5 C 81 16 130/67 96 02/23/20 11:20 78 16 119/67 96 02/23/20 11:10 79 16 126/69 98 02/23/20 11:03 36.1 C L 91 H 16 126/66 97 02/23/20 07:51 65 20 146/78 H 94 02/23/20 07:26 36.6 C 70 22 136/69 96 Transfer of Care Handoff Completed per policy Notes Mental Status: alert / awake / arousable Patient Amnestic to Procedure: Yes Nausea / Vomiting: adequately controlled Pain: adequately controlled Airway Patency, RR, SpO2: stable & adequate BP & HR: stable & adequate Hydration State: stable & adequate Anesthetic Complications: no major complications apparent
--- NOTE | 2020-02-23 11:52 | XRay Report ---
XR shoulder LT min 2V routine CLINICAL HISTORY: Post shoulder surgery COMPARISON: None. DISCUSSION: There are postsurgical changes of a total left shoulder arthroplasty. There is no disloca tion. There is gas present within the soft tissues consistent with recent surgery. There are overlyin g skin sheri. Parenchymal opacities within the left lower lobe, likely represent atelectasis. IMPRESSION: 1. Postsurgical changes of a total left shoulder arthroplasty 2. Left lower lobe pulmonary airspace opacities, likely atelectatic ACT 112: Negative or not required by law. Electronically signed by: Ryne Amado M.D. 02/23/2020 11:50 AM
[2020-02-23] MEDS ORDERED: PNEUMOCOCCAL POLYSACCHARIDES 25 MCG/0.5 ML VIAL/SYR IM ONE (12:01)
[2020-02-23] MEDS ORDERED: PNEUMOCOCCAL ADMINISTRATION CHARGE ONE (12:01)
[2020-02-23] MEDS ORDERED: MAGNESIUM HYDROXIDE SUSP 30 ML UDC PO PRN (12:33)
[2020-02-23] MEDS ORDERED: OXYCODONE HCL IR 5 MG TAB (IMMEDIATE RELEASE) PO PRN (12:33)
[2020-02-23] MEDS ORDERED: bisacodyL 10 MG SUPP PR PRN (12:33)
[2020-02-23] MEDS ORDERED: HYDROmorphone INJ 0.5 MG/0.5 ML SYR IV PRN (12:33)
[2020-02-23] MEDS ORDERED: METOCLOPRAMIDE HCL INJ 5 MG/ML 2 ML VIAL IV PRN (12:33)
[2020-02-23] MEDS ORDERED: NALOXONE HCL 0.4 MG/1 ML VIAL/CARP IV PRN (12:33)
[2020-02-23] MEDS ORDERED: PHARMACY GLYCEMIC MGMT CONSULT PRN (12:44)
[2020-02-23] MEDS ORDERED: NovoLIN-N (NPH) PER UNIT CHARGE SQ ONE (13:00)
[2020-02-23] MEDS: INSULIN ASPART 100 UNITS/ML 3 ML PEN SC SCH ×4 (13:01→21:10)
[2020-02-23] MEDS: SODIUM CHLORIDE 0.9% 1000ML 1,000 ML IV SCH (13:01)
[2020-02-23] MEDS: ACETAMINOPHEN 500 MG TAB PO SCH ×2 (13:16→21:05)
--- NOTE | 2020-02-23 13:42 | Pharmacy Report ---
Glycemic Control Consultation - Date of Service February 23, 2020 - Scope Scope: Glycemic Pharmacist consulted for glycemic control and to write orders per [facility] inpatient glycemic control protocol. - Objective Weight: 87.5 kg Accuchecks BSG (last 24hrs): 02/23/20 02/23/20 02/23/20 07:07 11:06 12:11 POC Glucose 118 H 228 H 212 H HbA1c: Hemoglobin A1c 6.4 % (4.5-5.6) H 01/26/20 16:01 - Recent Pertinent Medications Outpatient Anti-diabetic Regimen: * Januvia 100 mg daily * A1c = 6.4 % 01/26/20 Risk Factors for Insulin Resistance: * Steroids: dexamethasone 8 mg PO preop + dexamethasone 4 mg IV intraop * Recent Surgery: POD 0 for shoulder surgery * Diet: T2DM - Assessment & Plan Assessment & Plan: ASSESSMENT: * Ms John is a 64 y/o F with presents with a PMH of T2DM well controlled on 1 oral medication who presents for shoulder surgery. Patient's blood sugar on presentation today was 118 mg/dL. Patient received dexamethasone 8 mg PO preop and dexamethasone 4 mg IV during surgery. * Provide NPH 35 units (0.4 units/kg) SQ x 1 plus weight-based stress of 3 Novolog. Overnight checks to ensure full 24 hour coverage. * Pt is maintained on an oral antidiabetic agent as an outpatient * Oral agents are not recommended for inpatient use d/t drug interactions, changing PO intake, and difficulty titrating for acute hyper/hypoglycemia. ADA recommends re-initiating outpatient oral agents 1-2 days prior to discharge if/when appropriate if they were held on admission. * ADA & AACE recommend a goal blood sugar range 140-180 mg/dl for the majority of critically ill & non-critically ill patients. However, more stringent targets may be selected in individual cases. Will utilize more stringent goal of 110-140mg/dl based on patient age & comorbidities. Additionally, tighter glycemic control is warranted to facilitate wound healing. PLAN FOR INPATIENT GLYCEMIC CONTROL: * Holding outpatient oral diabetes medications - plan to restart POD 1 or 2 * Basal insulin * NPH 35 units SQ x 1 * Bolus insulin * NovoLog per scale ACHS or Q6hrs while NPO * Goal Range: Low 110 mg/dL - High 140 mg/dL * Correction Factor: 20 mg/dL/unit * Nutritional / Prandial insulin per carb ratio of 1 unit per 6 grams CHO consumed Outpatient Recommendations * Patient's HbA1C well controlled and below goal of 7% * Continue home regimen. Thank you.
[2020-02-23] MEDS: KETOROLAC TROMETHAMINE 15 MG/ML VIAL IV SCH ×3 (15:23→22:08)
[2020-02-23] MEDS ORDERED: KETOROLAC 30 MG/ML VIAL IV SCH (16:00)
[2020-02-23] MEDS ORDERED: CHECK SCOPOLAMINE PATCH PLACEMENT SCH (16:00)
[2020-02-23] MEDS: CEFAZOLIN 2000MG 2,000 MG/15 ML SYR IV SCH (17:17)
[2020-02-23] MEDS ORDERED: AMLODIPINE BESYLATE 5 MG TAB PO SCH (21:00)
[2020-02-23] MEDS ORDERED: SENNA 8.6 MG TAB PO SCH (21:00)
[2020-02-23] MEDS ORDERED: GABAPENTIN 100 MG CAP PO SCH (21:00)
[2020-02-23] MEDS ORDERED: ROSUVASTATIN CALCIUM 20 MG TAB PO SCH (21:00)
[2020-02-23] MEDS ORDERED: LOSARTAN POTASSIUM 50 MG TAB PO SCH (21:00)
[2020-02-23] MEDS: HYDROXYCHLOROQUINE SULFATE 200 MG TAB PO SCH (21:05)
[2020-02-23] MEDS: DOCUSATE SODIUM 100 MG CAP PO SCH (21:05)
[2020-02-24] MEDS: CEFAZOLIN 2000MG 2,000 MG/15 ML SYR IV SCH (00:24)
[2020-02-24] MEDS: INSULIN ASPART 100 UNITS/ML 3 ML PEN SC SCH ×4 (00:26→12:00)
[2020-02-24] MEDS: SODIUM CHLORIDE 0.9% 1000ML 1,000 ML IV SCH (00:30)
[2020-02-24] MEDS: ACETAMINOPHEN 500 MG TAB PO SCH (05:21)
[2020-02-24] MEDS: KETOROLAC TROMETHAMINE 15 MG/ML VIAL IV SCH ×2 (05:22→09:12)
[2020-02-24] MEDS ORDERED: LEVOTHYROXINE SODIUM 150 MCG TABLET PO SCH (06:30)
[2020-02-24 06:34] LABS: Hematocrit (blood only) 35.1 % (37-47); Hemoglobin 11.5 g/dL (12.0-16.0); Immature Granulocytes # (auto) 0.03 K/uL (0.00-0.02); Immature Granulocytes % (auto) 0.2 %; Lymphocytes # (auto) 1.13 K/uL (1.2-3.4); Lymphocytes % (auto) 7.3 %; Mean Corpuscular Hemoglobin 29.3 pg (25-34); Mean Corpuscular Hgb Conc 32.8 g/dL (32-36); Mean Corpuscular Volume 89.5 fL (80-100); Mean Platelet Volume 10.2 fL (7.4-10.4); Monocytes # (auto) 0.94 K/uL (0.11-0.59); Monocytes % (auto) 6.1 %; Neutrophils % (auto) 86.4 %; Platelet Count 290 K/uL (130-400); RDW Coefficient of Variation 13.4 % (11.5-14.5); RDW Standard Deviation 43.9 fL (36.4-46.3); Red Blood Count 3.92 M/uL (4.2-5.4)
[2020-02-24 07:00] LABS: BUN Creatinine Ratio 33.4 (10-20); Calcium 8.9 mg/dl (8.5-10.1); Est GFR (African American) 101.9; Est GFR (Non-African American) 87.9; Potassium 4.2 mmol/L (3.5-5.1)
--- NOTE | 2020-02-24 07:03 | Orthopedic Progress Note ---
Date of Service February 24, 2020 Assessment & Plan (1) Status post replacement of left shoulder joint: Overall she is doing very well. She is not having much pain in the left shoulder. She will be seen by physical therapy this morning for ambulation and range of motion exercises. She can be discharged home later today. She will follow-up with orthopedics in 2 weeks. Present on Admission?: No Admission and Anticipated Discharge Date Admission Date: February 23, 2020 Minal Stauffer was seen and examined at bedside this morning. Overall she is doing very well. She is not having any pain in the left shoulder. She was able to get some sleep last night. She has no complaints. Physical Exam Musculoskeletal: On physical examination of the left shoulder, the dressing is clean and dry. She is wearing her sling as instructed. Her radial, median, and ulnar nerves are checked and intact at her wrist. Results & Data ([facility]) Vital Signs (Past 12 Hours) Vital Signs Temp Pulse Resp BP Pulse Ox 02/24/20 07:00 36.8 C 78 17 114/70 96 02/24/20 03:27 37 C 79 16 108/67 92 02/23/20 23:02 37.0 C 81 16 101/64 91 02/23/20 20:35 97/63 L Laboratory Results H & H 01/26/20 02/24/20 Range/Units 16:01 05:55 Hgb 14.2 11.5 L (12.0-16.0) g/dL Hct 43.5 35.1 L (37-47) % Coagulation 01/26/20 Range/Units 16:01 INR 1.0 (0.9-1.1) Diagnostic Findings Postoperative x-rays of the left shoulder show the prosthesis to be in anatomic alignment without any evidence of fracture, dislocation, or loosening. PG Care Time/CCT Total # of Minutes Spent Total Time Spent with Patient: Total time spent is greater than 50% in coordination of care (as documented) at patient's floor/unit and/or counseling patient: Coding Level of Care Code None Diagnoses Status post replacement of left shoulder joint Z96.612
--- NOTE | 2020-02-24 07:05 | Discharge Summary ---
Date of Service February 24, 2020 Admission HPI Per Admitting Provider Xiomy is a pleasant 64-year-old female who is been dealing with a several year history of increasing left shoulder pain. She is been followed by customs officer in [place]. She is on Plaquenil as well as other anti- inflammatory medications. Unfortunate she still having a lot of continued shoulder pain. X-rays and an MRI showed advanced osteoarthritis of the left shoulder. After failing conservative treatment, she has elected to proceed with a left total shoulder arthroplasty. Principal Diagnosis Left shoulder replacement Discharge Data Allergies Allergy/AdvReac Type Severity Reaction Status Date / Time aspirin Allergy Severe ESOPHAGEAL Verified 02/23/20 07:16 BLEED codeine Allergy Unknown GI Verified 02/23/20 07:16 SYMPTOMS, ALTERED MENTAL STATUS acetaminophen [From Percocet] Allergy Vomiting, Verified 02/23/20 07:16 dizziness oxycodone [From Percocet] Allergy Vomiting, Verified 02/23/20 07:16 dizziness Consultations 02/23/20 12:33 Consult Case Management - Discharge Planning Routine Procedures Performed Operation Date: 02/23/20 09:05 Actual Procedures p Left Total Shoulder Arthroplasty, Cemented(Left) - Pranay Johnson DO Ordered Studies 02/23/20 05:00 US - OR guided needle placemen Routine Hospital Course (1) Status post replacement of left shoulder joint: On February 23, 2020 Xiomy arrived at [facility] and underwent a left shoulder replacement without complication. She had a general anesthetic and a left interscalene nerve block. Postoperatively she was placed in a sling and transferred to the general orthopedic floors. Her hospital course was uneventful. On postop day #1 her H&H was stable and her pain was well controlled. She was able to participate well with physical therapy doing ambulation and range of motion exercises. She was then discharged home. She will follow-up with orthopedics in 2 weeks. Total Time Total Time Spent Total Time Spent (In Minutes): 20 Discharge Plan Discharge Items Patient Disposition: Home - Home Health Services Reason For Visit: Left Shoulder Degenerative Joint Disease Discharge Diagnosis: Left shoulder replacement Activity: As commented below Non-emergency contact: Surgeon Call non-emergency contact if: your wound has increased redness and your wound has increased drainage Follow-up/Referrals: Pro,Ankur Diego MD [Primary Care Provider] - Diet: Carb Consistent or DM2 Addtl Attending Provider Instructions: Activity and Therapy Recommendations: * If you are using [facility] then therapy will be provided at your home until they feel you have accomplished all of your goals. * If you are using [facility] then Physical Therapy will be provided until they feel you are ready to start Outpatient Physical Therapy. * If you are not using home therapy then Outpatient Physical Therapy should start about 3-5 days from your day of surgery. Therapy will last about 8-12 weeks * Wear your sling for 3 weeks, unless otherwise instructed. You may remove your sling to shower and to dress, but otherwise, you should be in your sling at all times, including while sleeping * The shoulder replacement is very stable and you can use your hand while in the sling * You were shown a series of exercises in the hospital. Do these exercises daily including the exercises you were shown in physical therapy. Medications: * Narcotic You will likely be sent home from the hospital with a prescription for the narcotic pain medication that worked best throughout your stay. * Other medications may be prescribed for specific circumstances. If you have any questions, please call the office at . * Resume previous home medications unless otherwise instructed Dressing Care: Leave the Silverlon dressing in place for 7 days. After 7 days you may remove the dressing. If the incision is not draining then you may leave the sheri open to air. If there is a little bit of drainage or if the sheri are getting stuck on your clothing then cover the incision with a dry dressing. The sheri will be removed at your 2 week follow-up appointment. Showering: You may shower with the Silverlon dressing in place. Do not let the shower spray hit the dressing directly. Pat the Silverlon dressing dry. If the dressing becomes wet underneath, then simply remove the dressing. Keep the incision dry until you are 7 days out from the day of surgery. After 7 days you may remove the Silverlon dressing and shower with the sheri exposed. Let soapy water run over the sheri and pat them dry. Do not scrub or soak the incision. Things To Watch For: * Drainage from the incision site that occurs more than one week after your surgery. * Increased redness at the incision site. * Fever above 102 degrees Fahrenheit. * Unusual chest pain or shortness of breath. * Call [facility] at with any of the above problems Follow-Up Visit: Follow-up with Dr. Johnson's PA (Pranay Berger) 2-3 weeks after your day of surgery. He will remove your sheri and answer any questions. If you have any additional questions or concerns, Dr Johnson is usually in the office at the same time and will be available An appointment was probably scheduled when you signed-up for surgery in the office. If you have any questions call More detailed instructions as well as Frequently Asked Questions were provided in a folder by our office when you signed-up for surgery. Please review these instructions when you get home. If you have any further questions or concerns, please feel free to call the office at [phone] Pending Studies at Discharge: No Stand-Alone Forms: My [facility] Data Symmetry, Smoking Cessation Medications and DC Order Prescriptions: New hydrocodone-acetaminophen [Haskell] 5-325 mg tablet 1 tab PO Q6H PRN (Reason: pain) Qty: 30 RF: 0 Continued tramadol 50 mg tablet 50 mg PO TID PRN (Reason: Pain) Qty: 90 RF: 0 amlodipine [Norvasc] 10 mg tablet 10 mg PO HS Qty: 30 RF: 5 cholecalciferol (vitamin D3) 1,250 mcg (50,000 unit) capsule 50,000 units PO WK RF: 0 hydroxychloroquine [Plaquenil] 200 mg tablet 200 mg PO BID RF: 0 celecoxib [Celebrex] 100 mg capsule 100 mg PO QAM RF: 0 tamsulosin [Flomax] 0.4 mg capsule 0.4 mg PO DAILY Qty: 5 RF: 0 multivitamin Tablet 1 tab PO QPM RF: 0 Baxter-3 350 mg-235 mg- 90 mg-597 mg Capsule,Delayed Release(Dr/Ec) 1 cap PO BID RF: 0 cranberry conc-ascorbic acid 140-100 mg Capsule 1 cap PO QAM RF: 0 acetaminophen [Tylenol Arthritis] 650 mg Tablet Extended Release 1,300 mg PO Q12H RF: 0 docusate sodium [Stool Softener] 100 mg Capsule 100 mg PO DAILY PRN (Reason: Constipation) RF: 0 losartan [Cozaar] 50 mg tablet 50 mg PO HS RF: 0 omeprazole 40 mg capsule,delayed release(DR/EC) 40 mg PO QAM RF: 0 levothyroxine 150 mcg tablet 150 mcg PO QAM RF: 0 gabapentin 100 mg capsule 100 mg PO UD RF: 0 rosuvastatin 20 mg tablet 20 mg PO HS RF: 0 Januvia 100 mg tablet 100 mg PO QAM RF: 0 hydrochlorothiazide 12.5 mg tablet 12.5 mg PO QAM RF: 0 gabapentin 100 mg Capsule 200 mg PO HS RF: 0 Discharge Orders: Discharge Order (Routine); Ordered 02/24/20 Ordered By: Pranay Martin/Other Patient Handouts: High Blood Sugar (Hyperglycemia), Hypoglycemia (Low Blood Sugar) Admission Data Admit Date/Time: 02/23/20 11:02 Attending Provider: Pranay Johnson Admit Provider: Pranay Johnson Primary Care Provider: Ankur Love Coding Level of Care Code D/C Day Management <30 mins Diagnoses Status post replacement of left shoulder joint Z96.612
[2020-02-24] MEDS ORDERED: hydroCHLOROthiazide 25 MG TAB PO SCH (09:00)
[2020-02-24] MEDS ORDERED: SITAGLIPTIN PHOSPHATE 100 MG TAB PO SCH (09:00)
[2020-02-24] MEDS ORDERED: PANTOprazole 40 MG TAB PO SCH (09:00)
[2020-02-24] MEDS ORDERED: GABAPENTIN 100 MG CAP PO SCH (09:00)
[2020-02-24] MEDS ORDERED: TAMSULOSIN HCL 0.4 MG CAP PO SCH (09:00)
[2020-02-24] MEDS ORDERED: MULTIVITAMIN TAB PO SCH (09:00)
[2020-02-24] MEDS: DOCUSATE SODIUM 100 MG CAP PO SCH (09:13)
[2020-02-24] MEDS: HYDROXYCHLOROQUINE SULFATE 200 MG TAB PO SCH (09:13)
== END 2020-02-24 13:00 | disposition home health service (06) | DRG 483 ==
LOC: ASU 06:51 → 3E 11:02

== ENCOUNTER 2021-10-17 14:27 | Observation (INO) ==
[2021-10-17 15:06] LABS: Eosinophils # (auto) 0.07 K/uL (0-0.5); Eosinophils % (auto) 0.7 %; Hemoglobin 14.3 g/dL (12.0-16.0); Immature Granulocytes # (auto) 0.06 K/uL (0.00-0.02); Immature Granulocytes % (auto) 0.6 %; Lymphocytes # (auto) 1.64 K/uL (1.2-3.4); Mean Corpuscular Hemoglobin 29.3 pg (25-34); Mean Corpuscular Hgb Conc 33.3 g/dL (32-36); Mean Corpuscular Volume 88.1 fL (80-100); Monocytes % (auto) 5.8 %; Neutrophils # (auto) 7.91 K/uL (1.4-6.5); Neutrophils % (auto) 76.9 %; Platelet Count 330 K/uL (130-400); RDW Coefficient of Variation 13.7 % (11.5-14.5); RDW Standard Deviation 44.3 fL (36.4-46.3); Red Blood Count 4.88 M/uL (4.2-5.4); White Blood Count 10.28 K/uL (4.8-10.8)
--- NOTE | 2021-10-17 15:09 | Electrocardiogram Report ---
Test Reason : Blood Pressure : / mmHG Vent. Rate : 075 BPM Atrial Rate : 075 BPM P-R Int : 170 ms QRS Dur : 094 ms QT Int : 414 ms P-R-T Axes : 044 -04 064 degrees QTc Int : 462 ms Sinus rhythm with Premature atrial complexes Nonspecific T wave abnormality Abnormal ECG When compared with ECG of 05-JUL-2021 16:40, Premature atrial complexes are now Present Confirmed by Ankur Nash ([id number]) on 10/17/2021 3:08:42 PM Referred By: Confirmed By:Ankur Nash
--- NOTE | 2021-10-17 15:15 | XRay Report ---
XR chest 2V PA/lateral CLINICAL HISTORY: Atypical chest pain TECHNIQUE: 2 views of the chest were obtained. Comparison: Comparison is made to chest one view 07/05/2021 FINDINGS: A left total arthroplasty is seen. Calcified aortic knob is seen. The lungs are clear. No evidence of pleural effusion or pneumothorax. IMPRESSION: No acute chest disease. ACT 112: Negative or not required by law. Electronically signed by: Jacoby Rodriguez M.D. 10/17/2021 3:13 PM
[2021-10-17 15:26] LABS: Albumin Globulin Ratio 1.7 (0.9-2); Albumin Level 4.6 gm/dl (3.4-5.0); BUN Creatinine Ratio 25.6 (10-20); Bilirubin,Total 0.5 mg/dl (0.2-1.0); Calcium 9.7 mg/dl (8.5-10.1); Creatinine Clr Calc Pharmacy 72.8 ml/min; Est GFR (African American) 91.8 ml/min; Est GFR (Non-African American) 79.2 ml/min; Globulin 2.7 gm/dl (2.5-4.0); INR 0.9 (0.9-1.1); Partial Thromboplastin Time 27.3 Seconds (21.0-31.0); Potassium 4.1 mmol/L (3.5-5.1); Total Protein 7.3 gm/dl (6.0-8.3)
[2021-10-17 15:28] LABS: Troponin I High Sensitivity 3.8 pg/ml (0-14)
[2021-10-17] MEDS ORDERED: ASPIRIN CHEW 324 MG PO STA (15:56)
--- NOTE | 2021-10-17 16:02 | Emergency Department Note ---
Impression & Plan Chest pain, Elevated glucose ED Provider Note NAME: BRUCE BASSETT AGE: 65 SEX: F : 1955 ARRIVES VIA: Walk-In INFORMANT: Patient ED PROVIDER(S): Yuan Amaya DO CHIEF COMPLAINT: chest pain HPI: Patient is a 65-year-old female with a past medical history of diabetes, hypertension, hyperlipidemia who presents to the ER for midsternal chest tightness radiating up to the right shoulder and arm as well as the bilateral jaw pain. This was associated with shortness of breath. This occurred some around 2 PM. Lasted for about 45 minutes and abated. She has had this once before recently. This occurred while she was working on the computer. Denies a ny belly pain, nausea, vomiting, or diarrhea. On recent chronic steroids. Denies any dysuria, urgency, or frequency. Does have an extensive family history of CAD. Patient denies swelling of calves, recent trips, history of immobilization or recent surgery, prior history of DVT, hemoptysis, and history of smoking. ROS: See above HPI for pertinent positives & negatives. A total of 10 systems reviewed and were otherwise negative. PAST MEDICAL HISTORY:See Below PAST SURGICAL HISTORY:See Below FAMILY HISTORY:See Below SOCIAL HISTORY:See Below HOME MEDICATIONS:See Below ALLERGIES:See Below VITALS:See Below PHYSICAL EXAMINATION: GENERAL: Sitting up in bed, alert, well appearing, well nourished, no distress, non-toxic EYE EXAM: normal conjunctiva. PERRL and EOM's grossly intact. OROPHARYNX: no exudate, no erythema, lips, buccal mucosa, and tongue normal and mucous membranes are moist NECK: supple, no nuchal rigidity, no adenopathy, non-tender LUNGS: Clear to auscultation. Normal chest wall mechanics HEART: no murmurs, S1 normal and S2 normal ABDOMEN: abdomen soft, non-tender, normo-active bowel sounds, no masses, no rebound or guarding. UPPER EXTREMITIES: upper extremities are grossly normal. LOWER EXTREMITIES: No pitting edema. Calfs are equal bilateral NEURO EXAM: Normal sensorium, cranial nerves II-XII grossly intact, normal speech, no gross weakness of arms, no gross weakness of legs. MEDICAL DECISION MAKING: Patient is a 65-year-old female who presents ER for chest pain shortness of breath arm and bilateral jaw pain. IV was established blood work was obtained. Labs show no significant leukocytosis or anemia. INR was unremarkable. BMP was remarkable for elevated glucose at nearly 200. LFTs bilirubin was unremarkable. Troponin was negative. COVID-negative. Chest x-ray and EKG with subtle changes. Patient was up dated at bedside. She was given aspirin. She is pain- free. Discussed with the hospitalist admitted for further work-up. Discussed with Pt concerning signs and symptoms to watch out for. Pt was instructed to follow up with their PCP and discussed with the patient their option to return to the ED at anytime for persistent or worsening symptoms. The appropriate anticipatory guidance and out-patient management, including indications for return to the emergency department, were explained at length to the patient and understood. Triage Nursing notes reviewed. Limited review of prior medical records performed Vital Signs: reviewed and remarkable for no significant abnormalities Differential diagnosis: Differential diagnoses includes but is not limited to acute coronary syndrome, myocardial infarction, pericarditis, pulmonary embolus, aortic dissection, pn eumonia, pneumothorax, musculoskeletal, shingles, esophageal. ER treatment provided: See below Diagnostics interpreted by me: ECG: Sinus rhythm rate of 75 Normal axis No PVCs PACs T wave inversion in the septal leads Nonspecific ST wave changes in the lateral leads QTC 462 Cardiac Monitoring: An order was placed for continuous cardiac monitoring. The monitor shows a rate of 80 with sinus rhythm. Laboratory studies: As stated above and show below. Imaging studies: Portable AP upright 1 view of the chest was unremarkable Consultation(s): none Procedures: none Critical Care: None Past Med/Surg History Medical History GERD (gastroesophageal reflux disease) History of kidney stones Hyperlipidemia, unspecified Hypertension Hypothyroidism Obesity Osteoarthritis Palpitations Type 2 diabetes mellitus Vitamin D deficiency Surgical History H/O unilateral salpingectomy History of carpal tunnel surgery History of cryosurgery History of partial hysterectomy History of partial knee replacement History of surgical removal of pilonidal cyst History of tonsillectomy and adenoidectomy Hx of oral surgery S/P arthroscopy of knee S/P eye surgery S/P laparoscopy S/P skin biopsy Slow to wake up after anesthesia Status post replacement of left shoulder joint (~01/2020) Family History Father Hypertension Coronary arteriosclerosis Uncle Colorectal cancer Grandmother (Maternal) Ovarian cancer Breast cancer Aunt Ovarian cancer Breast cancer Sister Hyperlipidemia Hypertension Mother Osteoporosis Rheumatic heart disease Other No family history of adverse response to anesthesia Social History Smoking Status: Never smoker Second Hand Exposure: Yes (as a child); Hx Alcohol Use: No Hx Substance Use: No Preferred Language: Tanzanian Communication Ability: Effective Visual Impairment: No Limitations Hearing Ability: Normal 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 Beliefs That Will Affect Care: None marital status: Current Living Situation: Spouse current occupational status: employed and retired Feels Safe at Home: Yes Childhood Exposure to Second-Hand Smoke: No Seatbelt Use: always Assistive Devices: None Allergies Allergies Allergy/AdvReac Type Severity Reaction Status Date / Time aspirin AdvReac Severe ESOPHAGEAL Verified 10/17/21 16:46 BLEED codeine AdvReac Intermediate GI Verified 10/17/21 16:46 SYMPTOMS, ALTERED MENTAL STATUS oxycodone [From Percocet] AdvReac Intermediate Vomiting, Verified 10/17/21 16:46 dizziness Home Meds Home Medications Medication Instructions Recorded Confirmed cranberry concentrate-ascorbic 1 cap PO QAM 03/31/18 10/17/21 acid 140 mg-100 mg capsule omega 3 350 mg-dha 235 mg-epa 90 1 cap PO BID 03/31/18 10/17/21 mg-fish oil 597 mg capsule,delay rel ([place]-3) hydroxychloroquine 200 mg tablet 200 mg PO BID 11/27/19 10/17/21 (Plaquenil) acetaminophen 650 mg 1,300 mg PO Q12H 01/22/20 10/17/21 tablet,extended release celecoxib 200 mg capsule (Celebrex) 200 mg PO QAM 02/29/20 10/17/21 amoxicillin 500 mg tablet See Rx Instructions .ROUTE 07/05/21 10/17/21 .COMPLEX PRN cetirizine 10 mg tablet (Zyrtec) 20 mg PO BID 10/17/21 10/17/21 losartan 50 mg tablet 50 mg PO HS 10/17/21 10/17/21 rosuvastatin 20 mg tablet 20 mg PO HS 10/17/21 10/17/21 Previous Rx's Medication Instructions Recorded hydrochlorothiazide 12.5 mg tablet 12.5 mg PO QAM #90 tab 08/12/20 omeprazole 40 mg capsule,delayed 40 mg PO QAM #90 cap 12/06/20 release sitagliptin 100 mg tablet (Januvia) 100 mg PO QAM #90 tab 04/17/21 gabapentin 100 mg capsule See Rx Instructions PO HS #270 cap 04/28/21 levothyroxine 150 mcg tablet 150 mcg PO DAILY #90 tab 05/30/21 (Synthroid) montelukast 10 mg tablet 10 mg PO DAILY #30 tab 06/20/21 buspirone 7.5 mg tablet 7.5 mg PO BID #60 tab 07/13/21 doxepin 10 mg capsule 10 mg PO HS #30 cap 07/13/21 amlodipine 10 mg tablet (Norvasc) 5 mg PO HS #45 tab 08/04/21 famotidine 20 mg tablet 20 mg PO BID #90 tab 08/04/21 hydroxyzine HCl 10 mg tablet 10 mg PO BID #180 tab 08/22/21 prednisone 10 mg tablet See Rx Instructions PO .COMPLEX 10/02/21 #30 tab omalizumab 150 mg subcutaneous 300 mg SUBCUT .COMPLEX #2 ea 10/03/21 solution (Xolair) Results & Data (ED) Vital Signs Vital Signs - 24 hr 10/17/21 14:35 10/17/21 15:47 10/17/21 15:49 Temperature 36.9 C Temperature Source Oral Pulse Rate 98 H Pulse Rate [Apical] 64 Respiratory Rate 17 17 Respiratory Depth Normal Blood Pressure 150/94 H Blood Pressure [Left Arm] 160/77 H Blood Pressure Mean 112 Blood Pressure Mean [Left Arm] 104 Pulse Oximetry 98 95 95 Oxygen Delivery Method Room Air Room Air Oxygen Flow Rate 0 Sepsis Recent Fever Within 48 Hours No Sepsis New/Unexplained Change in Mental Status N/A Sepsis Action Taken by Nursing No Action Required Laboratory Data Result diagrams: 10/17/21 14:47 10/17/21 14:47 Lab Results 10/17/21 10/17/21 10/17/21 Range/Units 14:47 14:47 14:47 WBC 10.28 (4.8-10.8) K/uL RBC 4.88 (4.2-5.4) M/uL Hgb 14.3 (12.0-16.0) g/dL Hct 43.0 (37-47) % MCV 88.1 (80-100) fL MCH 29.3 (25-34) pg MCHC 33.3 (32-36) g/dL RDW Std Deviation 44.3 (36.4-46.3) fL RDW Coeff of Truong 13.7 (11.5-14.5) % Plt Count 330 (130-400) K/uL MPV 10.0 (7.4-10.4) fL Immature Gran % (Auto) 0.6 % Neut % (Auto) 76.9 % Lymph % (Auto) 16.0 % Yell % (Auto) 5.8 % Eos % (Auto) 0.7 % Baso % (Auto) 0.0 % Neut # (Auto) 7.91 H (1.4-6.5) K/uL Lymph # (Auto) 1.64 (1.2-3.4) K/uL Yell # (Auto) 0.60 H (0.11-0.59) K/uL Eos # (Auto) 0.07 (0-0.5) K/uL Baso # (Auto) 0.00 (0-0.2) K/uL Immature Gran # (Auto) 0.06 H (0.00-0.02) K/uL PT 10.0 (9.0-12.0) Seconds INR 0.9 (0.9-1.1) APTT 27.3 (21.0-31.0) Seconds PTT Ratio 1.0 Sodium 137 (136-145) mmol/L Potassium 4.1 (3.5-5.1) mmol/L Chloride 103 (98-107) mmol/L Carbon Dioxide 27 (21-32) mmol/L Anion Gap 7 (3-11) BUN 20 (6-23) mg/dl Creatinine 0.78 (0.6-1.2) mg/dl Est Cr Clr Drug Dosing 72.8 ml/min Est GFR ( Amer) 91.8 ml/min Est GFR (Non-Af Amer) 79.2 ml/min BUN/Creatinine Ratio 25.6 H (10-20) Glucose 196 H (70-99(Fasting)) mg/dl Calcium 9.7 (8.5-10.1) mg/dl Total Bilirubin 0.5 (0.2-1.0) mg/dl AST 10 L (13-39) U/L ALT 15 (7-52) U/L Alkaline Phosphatase 66 (34-104) U/L Troponin I High Sens 3.8 (0-14) pg/ml Total Protein 7.3 (6.0-8.3) gm/dl Albumin 4.6 (3.4-5.0) gm/dl Globulin 2.7 (2.5-4.0) gm/dl Albumin/Globulin Ratio 1.7 (0.9-2) // Range/Units 14:47 WBC (4.8-10.8) K/uL RBC (4.2-5.4) M/uL Hgb (12.0-16.0) g/dL Hct (37-47) % MCV (80-100) fL MCH (25-34) pg MCHC (32-36) g/dL RDW Std Deviation (36.4-46.3) fL RDW Coeff of Truong (11.5-14.5) % Plt Count (130-400) K/uL MPV (7.4-10.4) fL Immature Gran % (Auto) % Neut % (Auto) % Lymph % (Auto) % Yell % (Auto) % Eos % (Auto) % Baso % (Auto) % Neut # (Auto) (1.4-6.5) K/uL Lymph # (Auto) (1.2-3.4) K/uL Yell # (Auto) (0.11-0.59) K/uL Eos # (Auto) (0-0.5) K/uL Baso # (Auto) (0-0.2) K/uL Immature Gran # (Auto) (0.00-0.02) K/uL PT (9.0-12.0) Seconds INR (0.9-1.1) APTT (21.0-31.0) Seconds PTT Ratio Sodium Cancelled (136-145) mmol/L Potassium Cancelled (3.5-5.1) mmol/L Chloride Cancelled (98-107) mmol/L Carbon Dioxide Cancelled (21-32) mmol/L Anion Gap Cancelled (3-11) BUN Cancelled (6-23) mg/dl Creatinine Cancelled (0.6-1.2) mg/dl Est Cr Clr Drug Dosing Cancelled ml/min Est GFR ( Amer) Cancelled ml/min Est GFR (Non-Af Amer) Cancelled ml/min BUN/Creatinine Ratio Cancelled (10-20) Glucose Cancelled (70-99(Fasting)) mg/dl Calcium Cancelled (8.5-10.1) mg/dl Total Bilirubin Cancelled (0.2-1.0) mg/dl AST Cancelled (13-39) U/L ALT Cancelled (7-52) U/L Alkaline Phosphatase Cancelled (34-104) U/L Troponin I High Sens (0-14) pg/ml Total Protein Cancelled (6.0-8.3) gm/dl Albumin Cancelled (3.4-5.0) gm/dl Globulin Cancelled (2.5-4.0) gm/dl Albumin/Globulin Ratio Cancelled (0.9-2) Administered Medications Amlodipine Besylate (Amlodipine Besylate 5 Mg Tab) 5 mg PO KAILEE Stop: 11/16/21 20:59 Last Admin: 10/17/21 21:31 Dose: 5 mg Documented by: [id number] Buspirone HCl (Buspirone 7.5 Mg Tab) 7.5 mg PO BID KAILEE Stop: 11/16/21 20:59 Last Admin: 10/17/21 21:31 Dose: 7.5 mg Documented by: [id number] Doxepin HCl (Doxepin Hcl 10 Mg Capsule) [address] [facility] Stop: 11/16/21 20:59 Last Admin: 10/17/21 21:30 Dose: 10 mg Documented by: [id number] Famotidine (Famotidine 20 Mg Tab) 20 mg PO BID KAILEE Stop: 11/16/21 20:59 Last Admin: 10/17/21 21:30 Dose: 20 mg Documented by: [id number] Fish Oil ([place]-3 (Purified Fish Oil) 1 Gm Cap) 1 gm PO BID KAILEE Stop: 11/16/21 20:59 Last Admin: 10/17/21 21:36 Dose: 1 gm Documented by: [id number] Gabapentin (Gabapentin 100 Mg Cap) [address] [facility] Stop: 11/16/21 20:59 Last Admin: 10/17/21 21:30 Dose: 100 mg Documented by: [id number] Hydroxychloroquine Sulfate (Hydroxychloroquine Sulfate 200 Mg Tab) 200 mg PO BID KAILEE Stop: 11/16/21 20:59 Last Admin: 10/17/21 21:34 Dose: 200 mg Documented by: [id number] Hydroxyzine HCl (Hydroxyzine Hcl 10 Mg Tab) 10 mg PO BID KAILEE Stop: 11/16/21 20:59 Last Admin: 10/17/21 21:37 Dose: 10 mg Documented by: [id number] Insulin Aspart (Insulin Aspart Per Unit) 0 units SC ACHS KAILEE Stop: 11/16/21 20:02 Last Admin: 10/17/21 21:31 Dose: 5 units Documented by: [id number] Cosigned by: [id number] Losartan Potassium (Losartan Potassium 50 Mg Tab) 50 mg PO HS KAILEE Stop: 11/16/21 20:59 Last Admin: 10/17/21 21:37 Dose: 50 mg Documented by: [id number] Discontinued Medications Aspirin (Aspirin Chew 324 Mg) 324 mg PO NOW STA Stop: 10/17/21 15:57 Last Admin: 10/17/21 16:17 Dose: 324 mg Documented by: [id number] Imaging Data Radiologist's Impression: Chest X-Ray 10/17/21 14:44 XR chest 2V PA/lateral CLINICAL HISTORY: Atypical chest pain TECHNIQUE: 2 views of the chest were obtained. Comparison: Comparison is made to chest one view 07/05/2021 FINDINGS: A left total arthroplasty is seen. Calcified aortic knob is seen. The lungs are clear. No evidence of pleural effusion or pneumothorax. IMPRESSION: No acute chest disease. ACT 112: Negative or not required by law. Electronically signed by: Jacoby Rodriguez M.D. 10/17/2021 3:13 PM Discharge Plan Visit Data Chief Complaint: Chest Pain Stated Complaint: CHEST PAIN, SHORTNESS OF BREATH ED Provider: Yuan Amaya Discharge Problem: Chest pain, Elevated glucose Patient Disposition: Admitted As Inpatient Discharge Instructions Interventions: ED Discharge Assessment Last Done: 10/17/21 19:55 Discharge Problem: Chest pain Qualifiers: Chest pain type: unspecified Qualified Code(s): R07.9 - Chest pain, unspecified
--- NOTE | 2021-10-17 16:18 | History & Physical Report ---
Date of Service October 17, 2021 Assessment & Plan (1) Chest pain: Plan: Patient had 45 minutes of chest pain at home at rest this was associate with "not feeling well" may be some mild shortness of breath. Despite this 45 minutes of chest pain she had negative high-sensitivity troponin on presentation and no acute ST changes on EKG. Patient will be ruled out for unstable angina by serial high-sensitivity troponins and if negative a treadmill stress test to be performed in the morning. Patient was given a dose of aspirin in the ER but due to her multiple medications and can cause gastritis and esophagitis additional aspirin were not continued but should be if her troponin is elevated (2) GERD (gastroesophageal reflux disease): Plan: Patient is on prednisone taper for hives October 02, 2021 by allergy. With her GERD plus being on multiple medications for her arthritis this may be the root cause of her chest pain at this time. Patient is typically on famotidine will add pantoprazole on admission (3) Asthma: Plan: Patient has a history of significant asthma on omalizumab, montelukast and now prednisone taper does see allergy patient on hydroxyzine for allergies Patient also on hydroxychloroquine (4) Type 2 diabetes mellitus: Plan: Patiently typically on Sitagliptin. We will have sliding scale insulin in its place during this hospital stay (5) Hypertension: Plan: Typically on amlodipine the pain losartan and hydrochlorothiazide. Blood pressure stable at this time. This is not the most favorable regimen if coronary disease is present (6) Hypothyroidism: Plan: Leslee on levothyroxine last TSH check was May 18, 2021 where her TSH was low and her free T4 was high. At that time her synthyroid was reduced from 1 75-1 50 mics, recheck TSH with reflex T4 at this time Plan: Patient has a history of inflammatory arthritis for which she takes her Plaquenil and on Celebrex he follows Dr. Huber in [place] History of Present Illness Primary Care Provider: Ankur Love MD 65-year-old female with a history of diabetes and hypertension but multiple medications that can cause gastritis and esophagitis and a history of esophageal bleeding in the past who presents with chest pain at rest. Chest pain occurred about 20 minutes after eating while sitting in a chair it was in her upper chest radiated to her right shoulder and around her back. She had a previous episode about 2 weeks prior similarly but in between she had no chest pain even with exertion. Patient notes that she is under increasing stressors of late having to sub for family job when someone had quit. Has had dietary indiscretion and poor eating habits and poor glucose control. In addition she been placed on a prednisone taper by allergy due to chronic hives having a flare. Patient has an inflammatory arthritis and typically takes Plaquenil and Celebrex on a daily basis when GI upset she is on Pepcid and omeprazole. In the ER she was pain-free acute currents of injury are seen COVID testing is negative Allergies Allergy/AdvReac Type Severity Reaction Status Date / Time aspirin AdvReac Severe ESOPHAGEAL Verified 10/17/21 16:46 BLEED codeine AdvReac Intermediate GI Verified 10/17/21 16:46 SYMPTOMS, ALTERED MENTAL STATUS oxycodone [From Percocet] AdvReac Intermediate Vomiting, Verified 10/17/21 16:46 dizziness Home Medications Medication Instructions Recorded Confirmed Type cranberry concentrate-ascorbic 1 cap PO QAM 03/31/18 10/02/21 History acid 140 mg-100 mg capsule omega 3 350 mg-dha 235 mg-epa 90 1 cap PO BID 03/31/18 10/02/21 History mg-fish oil 597 mg capsule,delay rel ([place]-3) hydroxychloroquine 200 mg tablet 200 mg PO BID 11/27/19 10/02/21 History (Plaquenil) acetaminophen 650 mg 1,300 mg PO Q12H 01/22/20 10/02/21 History tablet,extended release celecoxib 200 mg capsule (Celebrex) 200 mg PO QAM 02/29/20 10/02/21 History hydrochlorothiazide 12.5 mg tablet 12.5 mg PO QAM #90 tab 08/12/20 10/02/21 Rx omeprazole 40 mg capsule,delayed 40 mg PO QAM #90 cap 12/06/20 10/02/21 Rx release sitagliptin 100 mg tablet (Januvia) 100 mg PO QAM #90 tab 04/17/21 10/02/21 Rx gabapentin 100 mg capsule See Rx Instructions PO HS #270 cap 04/28/21 10/02/21 Rx levothyroxine 150 mcg tablet 150 mcg PO DAILY #90 tab 05/30/21 10/02/21 Rx (Synthroid) montelukast 10 mg tablet 10 mg PO DAILY #30 tab 06/20/21 10/02/21 Rx amoxicillin 500 mg tablet See Rx Instructions .ROUTE .COMPLEX 07/05/21 10/02/21 History buspirone 7.5 mg tablet 7.5 mg PO BID #60 tab 07/13/21 10/02/21 Rx doxepin 10 mg capsule 10 mg PO HS #30 cap 07/13/21 10/02/21 Rx amlodipine 10 mg tablet (Norvasc) 5 mg PO HS #45 tab 08/04/21 10/02/21 Rx famotidine 20 mg tablet 20 mg PO BID #90 tab 08/04/21 10/02/21 Rx hydroxyzine HCl 10 mg tablet 10 mg PO BID #180 tab 08/22/21 10/02/21 Rx prednisone 10 mg tablet See Rx Instructions PO .COMPLEX 10/02/21 10/02/21 Rx #30 tab omalizumab 150 mg subcutaneous 300 mg SUBCUT .COMPLEX #2 ea 10/03/21 Rx solution (Xolair) cetirizine 10 mg tablet (Zyrtec) 20 mg PO BID 10/17/21 10/17/21 History losartan 50 mg tablet 50 mg PO HS 10/17/21 10/17/21 History rosuvastatin 20 mg tablet 20 mg PO HS 10/17/21 10/17/21 History Past Med/Surg History Medical History GERD (gastroesophageal reflux disease) History of kidney stones Hyperlipidemia, unspecified Hypertension Hypothyroidism Obesity Osteoarthritis Palpitations Type 2 diabetes mellitus Vitamin D deficiency Surgical History H/O unilateral salpingectomy History of carpal tunnel surgery History of cryosurgery History of partial hysterectomy History of partial knee replacement History of surgical removal of pilonidal cyst History of tonsillectomy and adenoidectomy Hx of oral surgery S/P arthroscopy of knee S/P eye surgery S/P laparoscopy S/P skin biopsy Slow to wake up after anesthesia Status post replacement of left shoulder joint (~01/2020) Family History Father Hypertension Coronary arteriosclerosis Uncle Colorectal cancer Grandmother (Maternal) Ovarian cancer Breast cancer Aunt Ovarian cancer Breast cancer Sister Hyperlipidemia Hypertension Mother Osteoporosis Rheumatic heart disease Other No family history of adverse response to anesthesia Social History Smoking Status: Never smoker Second Hand Exposure: Yes (as a child); Hx Alcohol Use: No Hx Substance Use: No Preferred Language: Frisian Communication Ability: Effective Visual Impairment: No Limitations Hearing Ability: Normal 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: No Beliefs That Will Affect Care: None marital status: Current Living Situation: Spouse current occupational status: employed and retired Feels Safe at Home: Yes Childhood Exposure to Second-Hand Smoke: No Seatbelt Use: always Assistive Devices: None Review of Systems Review of Systems: Mild distress and fatigue no headache, no visual changes no speech or swallowing issues no chest pain, pressure or palpitations no shortness of breath, cough or wheezes no abdominal pain, nausea or vomiting, diarrhea or constipation no dysuria, hematuria or frequency no focal joint pain or swelling no back pain, CVA tenderness or radicular pain no bruising, bleeding or rashes no focal signs of weakness or numbness or altered sensation no complaints of anxiety or depression.. Physical Exam Physical Exam: The patient appeared well nourished and normally developed. Vital signs as documented. Head exam is normocephalic atraumatic Neck is without JVD, thyromegaly, or carotid bruits. Lungs are clear to auscultation, no focal loss of breath sounds Cardiac exam, Rhythm is regular.. No murmurs, rubs or gallops. Abdominal exam reveals normal bowel sounds, soft non tender, no masses Extremities are nonedematous and both pedal pulses are present Neurologic exam is alert and oriented, no focal loss of strength or sensation Skin is without bruises or rashes Psychologically is without concerns for anxiety or depression.. Results & Data Results & Data ([facility]) Vital Signs (Past 12 Hours) Vital Signs Temp Pulse Pulse Resp BP BP Pulse Ox 10/17/21 15:49 95 10/17/21 15:47 64 17 160/77 H 95 10/17/21 14:35 98.4 F 98 H 17 150/94 H 98 Diagnostic Findings Chest X-Ray 10/17/21 14:44 XR chest 2V PA/lateral CLINICAL HISTORY: Atypical chest pain TECHNIQUE: 2 views of the chest were obtained. Comparison: Comparison is made to chest one view 07/05/2021 FINDINGS: A left total arthroplasty is seen. Calcified aortic knob is seen. The lungs are clear. No evidence of pleural effusion or pneumothorax. IMPRESSION: No acute chest disease. ACT 112: Negative or not required by law. Electronically signed by: Jacoyb Rodriguez M.D. 10/17/2021 3:13 PM ECG Additional Comments: Normal sinus rhythm PAC no acute ST or T wave abnormality with maybe the excep tion of a flattened T wave in V2 V3 but this can also be transitional PG Care Time/CCT Total # of Minutes Spent Total Time Spent with Patient: Total time spent is greater than 50% in coordination of care (as documented) at patient's floor/unit and/or counseling patient: Coding Level of Care Code INT OBSERVATION CARE 70M LVL 3 Diagnoses Hypertension I10 Hypothyroidism E03.9 GERD (gastroesophageal reflux disease) K21.9 Type 2 diabetes mellitus E11.9 Chest pain R07.9 Asthma J45.909
[2021-10-17] MEDS ORDERED: MoRPHine SULFATE 2 MG/ML CARP IV PRN (20:03)
[2021-10-17] MEDS ORDERED: oxyCODONE HCL IR 5 MG TAB (IMMEDIATE RELEASE) PO PRN (20:03)
[2021-10-17] MEDS ORDERED: ONDANSETRON INJ 2 MG/ML 2 ML VIAL IV PRN (20:03)
[2021-10-17] MEDS ORDERED: DEXTROSE 50% 50 ML SYRINGE IV PRN (20:03)
[2021-10-17] MEDS ORDERED: GLUCOSE 10 TABS/TUBE PO PRN (20:03)
[2021-10-17] MEDS ORDERED: ALUMINUM/MAGNESIUM SUSP 30 ML UDC PO PRN (20:03)
[2021-10-17] MEDS ORDERED: ALUMINUM/MAGNESIUM SUSP 72 ML, LIDOCAINE VISCOUS 2% SOLN 24 ML, BARCODE IDENTIFIER 1 EA PO PRN (20:03)
[2021-10-17] MEDS ORDERED: GLUCAGON FOR INJ 1 MG VIAL SQ PRN (20:03)
[2021-10-17] MEDS ORDERED: CARBOHYDRATES FOR HYPOGLYCEMIA PO PRN (20:03)
[2021-10-17] MEDS ORDERED: NITROGLYCERIN SL 0.4 MG/TAB TAB SL PRN (20:03)
[2021-10-17] MEDS ORDERED: GLUCOSE 40% GEL 15 GM TUBE PO PRN (20:03)
[2021-10-17] MEDS ORDERED: ACETAMINOPHEN 325 MG TAB PO PRN (20:24)
[2021-10-17] MEDS ORDERED: amLODIPine BESYLATE 5 MG TAB PO SCH (21:00)
[2021-10-17] MEDS ORDERED: GABAPENTIN 100 MG CAP PO SCH (21:00)
[2021-10-17] MEDS ORDERED: LOSARTAN POTASSIUM 50 MG TAB PO SCH (21:00)
[2021-10-17] MEDS ORDERED: DOXEPIN HCL 10 MG CAPSULE PO SCH (21:00)
[2021-10-17] MEDS: FAMOTIDINE 20 MG TAB PO SCH (21:30)
[2021-10-17] MEDS: INSULIN ASPART PER UNIT SC SCH (21:31)
[2021-10-17] MEDS: busPIRone 7.5 MG TAB PO SCH (21:31)
[2021-10-17] MEDS: HYDROXYCHLOROQUINE SULFATE 200 MG TAB PO SCH (21:34)
[2021-10-17] MEDS: OMEGA-3 (PURIFIED FISH OIL) 1 GM CAP PO SCH (21:36)
[2021-10-17] MEDS: hydrOXYzine HCl 10 MG TAB PO SCH (21:37)
[2021-10-17] MEDS: PANTOprazole 40 MG in SYRINGE 0 ML IV SCH (23:18)
[2021-10-18] MEDS ORDERED: LEVOTHYROXINE SODIUM 150 MCG TABLET PO SCH (06:30)
[2021-10-18] MEDS: FAMOTIDINE 20 MG TAB PO SCH (08:01)
[2021-10-18] MEDS: busPIRone 7.5 MG TAB PO SCH (08:01)
[2021-10-18] MEDS: hydrOXYzine HCl 10 MG TAB PO SCH (08:01)
[2021-10-18] MEDS: OMEGA-3 (PURIFIED FISH OIL) 1 GM CAP PO SCH (08:01)
[2021-10-18] MEDS: HYDROXYCHLOROQUINE SULFATE 200 MG TAB PO SCH (08:02)
[2021-10-18] MEDS: PANTOprazole 40 MG in SYRINGE 0 ML IV SCH (08:02)
[2021-10-18] MEDS: INSULIN ASPART PER UNIT SC SCH ×2 (08:14→12:52)
[2021-10-18 08:26] LABS: Hematocrit (blood only) 41.1 % (37-47); Hemoglobin 13.5 g/dL (12.0-16.0); Mean Corpuscular Hemoglobin 29.3 pg (25-34); Mean Corpuscular Hgb Conc 32.8 g/dL (32-36); Mean Corpuscular Volume 89.3 fL (80-100); Mean Platelet Volume 10.3 fL (7.4-10.4); Platelet Count 272 K/uL (130-400); RDW Coefficient of Variation 13.6 % (11.5-14.5); RDW Standard Deviation 44.3 fL (36.4-46.3); White Blood Count 9.19 K/uL (4.8-10.8)
[2021-10-18 08:55] LABS: BUN Creatinine Ratio 22.4 (10-20); Calcium 9.5 mg/dl (8.5-10.1); Creatinine Clr Calc Pharmacy 74.6 ml/min; Est GFR (African American) 94.7 ml/min; Est GFR (Non-African American) 81.7 ml/min; Potassium 3.7 mmol/L (3.5-5.1)
[2021-10-18 08:59] LABS: Troponin I High Sensitivity 4.2 pg/ml (0-14)
[2021-10-18] MEDS ORDERED: CeleBREX 200 MG CAP PO SCH (09:00)
[2021-10-18] MEDS ORDERED: GABAPENTIN 100 MG CAP PO SCH (09:00)
[2021-10-18] MEDS ORDERED: MONTELUKAST SODIUM 10 MG TABLET PO SCH (09:00)
[2021-10-18] MEDS ORDERED: SITagliptin PHOSPHATE 100 MG TAB PO SCH (09:00)
[2021-10-18] MEDS ORDERED: hydroCHLOROthiazide 25 MG TAB PO SCH (09:00)
[2021-10-18 09:11] LABS: Thyroid Stimulating Hormone 0.086 uIu/ml (0.300-4.500)
[2021-10-18 09:28] LABS: Estimated Average Glucose 160 mg/dl; Hemoglobin A1C 7.2 % (4.5-5.6)
--- NOTE | 2021-10-18 10:30 | Hospitalist Progress Note ---
Date of Service October 18, 2021 Assessment & Plan (1) Chest pain: Plan: Troponin series negative to date. No acute EKG changes. She currently is pain- free. She is awaiting stress testing today, October 18, and will be discharged home if negative. (2) GERD (gastroesophageal reflux disease): Plan: Patient is on prednisone taper for hives October 02, 2021 by allergy. With her GERD plus being on multiple medications for her arthritis this may be the root cause of her chest pain at this time. Patient is typically on famotidine. Added pantoprazole on admission (3) Asthma: Plan: Patient has a history of significant asthma on omalizumab, montelukast and now prednisone taper does see allergy patient on hydroxyzine for allergies Patient also on hydroxychloroquine (4) Type 2 diabetes mellitus: Plan: Patiently typically on Sitagliptin. ADA diet. Sliding scale coverage as needed (5) Hypertension: Plan: Typically on amlodipine, losartan and hydrochlorothiazide. (6) Hypothyroidism: Plan: Continue levothyroxine. Last TSH check was May 18, 2021 where her TSH was low and her free T4 was high. At that time her synthroid was reduced from 175 to 150 mics. Plan: Patient has a history of inflammatory arthritis for which she takes Plaquenil and Celebrex. Follows Dr. Huber in [place] Patient: Discharge to home today, October 18, if stress test negative Admission and Anticipated Discharge Date Admission Date: October 17, 2021 Subjective Alert and oriented. No chest discomfort at this time. Troponin series is negative to date. She is awaiting stress testing today and will be discharged home if the stress test is negative Review of Systems Review of Systems: Constitutional-no fever or chills ENT-no blurred vision, no double vision, no epistaxis, no sore throat Respiratory-no cough, no wheezing, no shortness of breath Cardiac-no palpitations, no chest pain, no syncope GI-no nausea, vomiting, diarrhea, melena, hematochezia -no urinary retention, no urinary incontinence, no dysuria, no hematuria Musculoskeletal-no joint pain, no muscle tenderness Skin-no bruising, no rashes, no pruritus Neuro-no isolated weakness, no paresthesia, no weakness Psych-no depression, no anxiety Physical Exam Physical Exam: General-alert and oriented x3, no fevers, no chills HEENT-head atraumatic and normocephalic, TMs intact bilaterally, pupils equal a nd reactive to light, extraocular muscles intact Neck-no lymphadenopathy or thyromegaly, trachea midline Chest-clear to auscultation percussion. No rales wheezing or rhonchi Cardiac-regular rate and rhythm, normal S1 and S2, no murmurs Abdomen-normal bowel sounds, nontender, no hepatosplenomegaly Extremities-no cyanosis, clubbing, or edema Neuro-cranial nerves II through XII intact, motor and sensory function within normal limits, strength symmetrical , no focal deficits Psych-normal affect, normal mood Results & Data Results & Data ([facility]) Vital Signs (Past 12 Hours) Vital Signs Temp Pulse Pulse Resp BP Pulse Ox 10/18/21 07:36 36.9 C 54 L 18 134/73 95 10/18/21 03:31 36.7 C 47 L 18 104/67 96 10/17/21 23:44 36.7 C 63 16 131/77 97 Laboratory Results 10/18/21 07:42 10/18/21 07:42 PG Care Time/CCT Total # of Minutes Spent Total Time Spent with Patient: Total time spent is greater than 50% in coordination of care (as documented) at patient's floor/unit and/or counseling patient: Coding Level of Care Code 08667 Subseq Hosp Care Lvl 3 Diagnoses Chest pain R07.9 GERD (gastroesophageal reflux disease) K21.9 Asthma J45.909 Type 2 diabetes mellitus E11.9 Hypertension I10 Hypothyroidism E03.9
--- NOTE | 2021-10-18 12:45 | Discharge Summary ---
Date of Service October 18, 2021 Admission HPI Per Admitting Provider 65-year-old female with a history of diabetes and hypertension but multiple medications that can cause gastritis and esophagitis and a history of esophageal bleeding in the past who presents with chest pain at rest. Chest pain occurred about 20 minutes after eating while sitting in a chair it was in her upper chest radiated to her right shoulder and around her back. She had a previous episode about 2 weeks prior similarly but in between she had no chest pain even with exertion. Patient notes that she is under increasing stressors of late having to sub for family job when someone had quit. Has had dietary indiscretion and poor eating habits and poor glucose control. In addition she been placed on a prednisone taper by allergy due to chronic hives having a flare. Patient has an inflammatory arthritis and typically takes Plaquenil and Celebrex on a daily basis when GI upset she is on Pepcid and omeprazole. In the ER she was pain-free acute currents of injury are seen COVID testing is negative Principal Diagnosis Noncardiac chest pain Discharge Exam General-alert and oriented x3, no fevers, no chills HEENT-head atraumatic and normocephalic, TMs intact bilaterally, pupils equal and reactive to light, extraocular muscles intact Neck-no lymphadenopathy or thyromegaly, trachea midline Chest-clear to auscultation percussion. No rales wheezing or rhonchi Cardiac-regular rate and rhythm, normal S1 and S2, no murmurs Abdomen-normal bowel sounds, nontender, no hepatosplenomegaly Extremities-no cyanosis, clubbing, or edema Neuro-cranial nerves II through XII intact, motor and sensory function within normal limits, strength symmetrical , no focal deficits Psych-normal affect, normal mood Discharge Data Allergies Allergy/AdvReac Type Severity Reaction Status Date / Time aspirin AdvReac Severe ESOPHAGEAL Verified 10/17/21 16:46 BLEED codeine AdvReac Intermediate GI Verified 10/17/21 16:46 SYMPTOMS, ALTERED MENTAL STATUS oxycodone [From Percocet] AdvReac Intermediate Vomiting, Verified 10/17/21 16:46 dizziness Consultations 10/17/21 15:56 ED Decision to Admit Stat Hospital Course (1) Chest pain: Troponin series negative to date. No acute EKG changes. She currently is pain-free. Stress echo normal today, October 18. To be noncardiac chest discomfort (2) GERD (gastroesophageal reflux disease): Patient is on prednisone taper for hives October 02, 2021 by allergy. With her GERD plus being on multiple medications for her arthritis this may be the root cause of her chest pain at this time. Patient is typically on famotidine. Added pantoprazole on admission (3) Asthma: Patient has a history of significant asthma on omalizumab, montelukast and now prednisone taper does see allergy patient on hydroxyzine for allergies Patient also on hydroxychloroquine (4) Type 2 diabetes mellitus: Patiently typically on Sitagliptin. ADA diet. Sliding scale coverage as needed (5) Hypertension: Typically on amlodipine, losartan and hydrochlorothiazide. (6) Hypothyroidism: Continue levothyroxine. Last TSH check was May 18, 2021 where her TSH was low and her free T4 was high. At that time her synthroid was reduced from 175 to 150 mics. Patient has a history of inflammatory arthritis for which she takes Plaquenil and Celebrex. Follows Dr. Huber in [place] Patient: Discharge to home today, October 18, since stress test negative Total Time Total Time Spent Total Time Spent (In Minutes): 35 minutes Discharge Plan Discharge Items Patient Disposition: Home - Self-Care Reason For Visit: CHEST PAIN Discharge Diagnosis: Atypical noncardiac chest pain Activity: Resume your previous activity Non-emergency contact: Primary Care Provider Call non-emergency contact if: you have any medication questions and your symptoms worsen Follow-up/Referrals: Pro,Ankur Diego MD [Primary Care Provider] - Diet: Carb Consistent or DM2 Pending Studies at Discharge: No Stand-Alone Forms: My [employer], Smoking Cessation Medications and DC Order Prescriptions: Continued omeprazole 40 mg capsule,delayed release(DR/EC) 40 mg PO QAM Qty: 90 RF: 3 Januvia 100 mg tablet 100 mg PO QAM Qty: 90 RF: 3 gabapentin 100 mg capsule See Rx Instructions PO HS Qty: 270 RF: 1 levothyroxine [Synthroid] 150 mcg tablet 150 mcg PO DAILY Qty: 90 RF: 3 montelukast 10 mg tablet 10 mg PO DAILY Qty: 30 RF: 5 buspirone 7.5 mg tablet 7.5 mg PO BID Qty: 60 RF: 5 doxepin 10 mg capsule 10 mg PO HS Qty: 30 RF: 5 amlodipine [Norvasc] 10 mg tablet 5 mg PO HS Qty: 45 RF: 1 famotidine 20 mg tablet 20 mg PO BID Qty: 90 RF: 1 hydroxyzine HCl 10 mg tablet 10 mg PO BID Qty: 180 RF: 0 Xolair 150 mg recon soln 300 mg subcut .COMPLEX Qty: 2 RF: 11 hydrochlorothiazide 12.5 mg tablet 12.5 mg PO QAM Qty: 90 RF: 1 prednisone 10 mg tablet See Rx Instructions PO .COMPLEX Qty: 30 RF: 0 celecoxib [Celebrex] 200 mg capsule 200 mg PO QAM RF: 0 hydroxychloroquine [Plaquenil] 200 mg tablet 200 mg PO BID RF: 0 [place]-3 350 mg-235 mg- 90 mg-597 mg Capsule,Delayed Release(Dr/Ec) 1 cap PO BID RF: 0 cranberry conc-ascorbic acid 140-100 mg Capsule 1 cap PO QAM RF: 0 acetaminophen 650 mg Tablet Extended Release 1,300 mg PO Q12H RF: 0 amoxicillin 500 mg tablet See Rx Instructions .ROUTE .COMPLEX PRN (Reason: PRIOR TO DENTAL APPT.) RF: 0 losartan 50 mg tablet 50 mg PO HS RF: 0 rosuvastatin 20 mg tablet 20 mg PO HS RF: 0 cetirizine [Zyrtec] 10 mg Tablet 20 mg PO BID RF: 0 Discharge Orders: Discharge Order (Routine); Ordered 10/18/21 Ordered By: Davey Martin/Other Patient Handouts: Managing Type 2 Diabetes Admission Data Admit Date/Time: 10/17/21 16:25 Attending Provider: Davey Peacock Admit Provider: Eric Matias Primary Care Provider: Ankur Love Other Providers: Eric Matias Coding Level of Care Code D/C DAY MANAGEMENT >30 MINS Diagnoses Chest pain R07.9 GERD (gastroesophageal reflux disease) K21.9 Asthma J45.909 Type 2 diabetes mellitus E11.9 Hypertension I10 Hypothyroidism E03.9
--- NOTE | 2021-10-18 14:02 | Electrocardiogram Report ---
Test Reason : Blood Pressure : / mmHG Vent. Rate : 056 BPM Atrial Rate : 056 BPM P-R Int : 180 ms QRS Dur : 094 ms QT Int : 480 ms P-R-T Axes : 052 005 078 degrees QTc Int : 463 ms Sinus bradycardia Otherwise normal ECG When compared with ECG of 17-OCT-2021 14:40, Premature atrial complexes are no longer Present Confirmed by Ankur Nash ([id number]) on 10/18/2021 2:01:45 PM Referred By: Tim Nazario Confirmed By:Ankur Nash
--- NOTE | 2021-10-18 14:04 | Discharge Summary ---
Date of Service October 18, 2021 Admission HPI Per Admitting Provider 65-year-old female with a history of diabetes and hypertension but multiple medications that can cause gastritis and esophagitis and a history of esophageal bleeding in the past who presents with chest pain at rest. Chest pain occurred about 20 minutes after eating while sitting in a chair it was in her upper chest radiated to her right shoulder and around her back. She had a previous episode about 2 weeks prior similarly but in between she had no chest pain even with exertion. Patient notes that she is under increasing stressors of late having to sub for family job when someone had quit. Has had dietary indiscretion and poor eating habits and poor glucose control. In addition she been placed on a prednisone taper by allergy due to chronic hives having a flare. Patient has an inflammatory arthritis and typically takes Plaquenil and Celebrex on a daily basis when GI upset she is on Pepcid and omeprazole. In the ER she was pain-free acute currents of injury are seen COVID testing is negative Principal Diagnosis Atypical noncardiac chest discomfort Discharge Data Allergies Allergy/AdvReac Type Severity Reaction Status Date / Time aspirin AdvReac Severe ESOPHAGEAL Verified 10/17/21 16:46 BLEED codeine AdvReac Intermediate GI Verified 10/17/21 16:46 SYMPTOMS, ALTERED MENTAL STATUS oxycodone [From Percocet] AdvReac Intermediate Vomiting, Verified 10/17/21 16:46 dizziness Consultations 10/17/21 15:56 ED Decision to Admit Stat Total Time Total Time Spent Total Time Spent (In Minutes): 35 minutes Discharge Plan Discharge Items Patient Disposition: Home - Self-Care Reason For Visit: CHEST PAIN Discharge Diagnosis: Atypical noncardiac chest pain Activity: Resume your previous activity Non-emergency contact: Primary Care Provider Call non-emergency contact if: you have any medication questions and your symptoms worsen Follow-up/Referrals: ProAnkur MD [Primary Care Provider] - 11/03/21 7:40 am Diet: Carb Consistent or DM2 Addtl Attending Provider Instructions: Follow-up with primary care provider as scheduled Pending Studies at Discharge: No Stand-Alone Forms: My [employer], Smoking Cessation Medications and DC Order Prescriptions: Continued omeprazole 40 mg capsule,delayed release(DR/EC) 40 mg PO QAM Qty: 90 RF: 3 Januvia 100 mg tablet 100 mg PO QAM Qty: 90 RF: 3 gabapentin 100 mg capsule See Rx Instructions PO HS Qty: 270 RF: 1 levothyroxine [Synthroid] 150 mcg tablet 150 mcg PO DAILY Qty: 90 RF: 3 montelukast 10 mg tablet 10 mg PO DAILY Qty: 30 RF: 5 buspirone 7.5 mg tablet 7.5 mg PO BID Qty: 60 RF: 5 doxepin 10 mg capsule 10 mg PO HS Qty: 30 RF: 5 amlodipine [Norvasc] 10 mg tablet 5 mg PO HS Qty: 45 RF: 1 famotidine 20 mg tablet 20 mg PO BID Qty: 90 RF: 1 hydroxyzine HCl 10 mg tablet 10 mg PO BID Qty: 180 RF: 0 Xolair 150 mg recon soln 300 mg subcut .COMPLEX Qty: 2 RF: 11 hydrochlorothiazide 12.5 mg tablet 12.5 mg PO QAM Qty: 90 RF: 1 prednisone 10 mg tablet See Rx Instructions PO .COMPLEX Qty: 30 RF: 0 celecoxib [Celebrex] 200 mg capsule 200 mg PO QAM RF: 0 hydroxychloroquine [Plaquenil] 200 mg tablet 200 mg PO BID RF: 0 [place]-3 350 mg-235 mg- 90 mg-597 mg Capsule,Delayed Release(Dr/Ec) 1 cap PO BID RF: 0 cranberry conc-ascorbic acid 140-100 mg Capsule 1 cap PO QAM RF: 0 acetaminophen 650 mg Tablet Extended Release 1,300 mg PO Q12H RF: 0 amoxicillin 500 mg tablet See Rx Instructions .ROUTE .COMPLEX PRN (Reason: PRIOR TO DENTAL APPT.) RF: 0 losartan 50 mg tablet 50 mg PO HS RF: 0 rosuvastatin 20 mg tablet 20 mg PO HS RF: 0 cetirizine [Zyrtec] 10 mg Tablet 20 mg PO BID RF: 0 Discharge Orders: Discharge Order (Routine); Ordered 10/18/21 Ordered By: Davey Martin/Other Patient Handouts: Managing Type 2 Diabetes Admission Data Admit Date/Time: 10/17/21 16:25 Attending Provider: Davey Peacock Admit Provider: Eric Matias Primary Care Provider: Ankur Love Other Providers: Eric Matias Other Interventions: Discharge Summary Assessment (RN) Last Done: 10/18/21 13:59 Coding Level of Care Code D/C DAY MANAGEMENT >30 MINS
[2021-10-18 14:42] LABS: T4 Free Thyroxine 1.24 ng/dl (0.61-1.60)
--- NOTE | 2021-10-18 16:02 | XCELERA ---
[id number]
== END 2021-10-18 14:39 | disposition home or self-care (01) ==
LOC: ED 14:27 → INTOOBSV 16:25 → SUATTDRO 16:25 → 2N 17:08
DX: Z98.890 Other specified postprocedural states; Z96.612 Presence of left artificial shoulder joint; E66.9 Obesity, unspecified; J45.909 Unspecified asthma, uncomplicated; Z79.84 Long term (current) use of oral hypoglycemic drugs; Z79.1 Long term (current) use of non-steroidal anti-inflammatories (NSAID); Z79.52 Long term (current) use of systemic steroids; Z68.35 Body mass index [BMI] 35.0-35.9, adult; Z79.899 Other long term (current) drug therapy; Z88.5 Allergy status to narcotic agent; Z88.6 Allergy status to analgesic agent; Z90.711 Acquired absence of uterus with remaining cervical stump; Z79.51 Long term (current) use of inhaled steroids; Z96.659 Presence of unspecified artificial knee joint; I10 Essential (primary) hypertension; E11.9 Type 2 diabetes mellitus without complications; E03.9 Hypothyroidism, unspecified; K21.9 Gastro-esophageal reflux disease without esophagitis; Z79.890 Hormone replacement therapy; R07.89 Other chest pain; E78.5 Hyperlipidemia, unspecified

== ENCOUNTER 2023-09-13 07:19 | Observation (INO) ==
--- NOTE | 2023-08-13 14:06 | PAT Medication Instructions ---
Medication Instructions Date of Service August 13, 2023 Home Medications Medication Instructions Recorded hydroxychloroquine 200 mg tablet 200 mg PO BID #180 tabs 05/07/22 (Plaquenil) amlodipine 10 mg tablet (Norvasc) 5 mg (1/2 x 10 mg) PO HS #45 tabs 05/08/22 montelukast 10 mg tablet 10 mg PO QAM #90 tabs 11/19/22 losartan 50 mg tablet 50 mg PO HS #90 tabs 01/02/23 pantoprazole 40 mg tablet,delayed 40 mg PO BID #60 tabs 06/26/23 release sitagliptin phosphate 100 mg 100 mg PO QAM #90 tabs 06/26/23 tablet (Januvia) rosuvastatin 20 mg tablet 20 mg PO HS #90 tabs 07/08/23 famotidine 40 mg tablet 40 mg PO BID #60 tabs 07/09/23 acetaminophen 650 mg tablet,extended release 1,300 mg PO Q12H amoxicillin 500 mg tablet 2,000 mg PO UD PRN PRIOR TO DENTAL APPT cetirizine 10 mg tablet (Zyrtec) 10 mg PO BID PRN Allergic Symptoms hydroxychloroquine 200 mg tablet (Plaquenil) 200 mg PO BID amlodipine 10 mg tablet (Norvasc) 5 mg (1/2 x 10 mg) PO HS montelukast 10 mg tablet 10 mg PO QAM losartan 50 mg tablet 50 mg PO HS aluminum hydrox-magnesium carb [Gaviscon Extra Strength] 1 tab PO DAILY PRN gabapentin 100 mg capsule 200 mg PO UD omalizumab 150 mg/mL subcutaneous syringe 300 mg subcut UD prednisone 10 mg tablet 10 mg PO DAILY PRN HIVES pantoprazole 40 mg tablet,delayed release 40 mg PO BID sitagliptin phosphate 100 mg tablet (Januvia) 100 mg PO QAM rosuvastatin 20 mg tablet 20 mg PO HS famotidine 40 mg tablet 40 mg PO BID hydrochlorothiazide 25 mg tablet 25 mg PO QAM levothyroxine 137 mcg tablet (Synthroid) 137 mcg PO QAM vibegron 75 mg tablet (Gemtesa) 75 mg PO QAM Continue as directed amoxicillin 500 mg tablet 2,000 mg PO UD PRN PRIOR TO DENTAL APPT (if needed) prednisone 10 mg tablet 10 mg PO DAILY PRN HIVES (if needed) ASK your prescriber and surgeon hydroxychloroquine 200 mg tablet (Plaquenil) 200 mg PO BID omalizumab 150 mg/mL subcutaneous syringe 300 mg subcut UD DO NOT take the morning of surgery cetirizine 10 mg tablet (Zyrtec) 10 mg PO BID PRN Allergic Symptoms aluminum hydrox-magnesium carb [Gaviscon Extra Strength] 1 tab PO DAILY PRN sitagliptin phosphate 100 mg tablet (Januvia) 100 mg PO QAM hydrochlorothiazide 25 mg tablet 25 mg PO QAM vibegron 75 mg tablet (Gemtesa) 75 mg PO QAM Take morning of surgery With a small sip of water, OTHERWISE NOTHING TO EAT OR DRINK AFTER MIDNIGHT: acetaminophen 650 mg tablet,extended release 1,300 mg PO Q12H montelukast 10 mg tablet 10 mg PO QAM gabapentin 100 mg capsule 200 mg PO UD pantoprazole 40 mg tablet,delayed release 40 mg PO BID famotidine 40 mg tablet 40 mg PO BID levothyroxine 137 mcg tablet (Synthroid) 137 mcg PO QAM Take evening before surgery acetaminophen 650 mg tablet,extended release 1,300 mg PO Q12H cetirizine 10 mg tablet (Zyrtec) 10 mg PO BID PRN Allergic Symptoms (if needed) amlodipine 10 mg tablet (Norvasc) 5 mg (1/2 x 10 mg) PO HS losartan 50 mg tablet 50 mg PO HS aluminum hydrox-magnesium carb [Gaviscon Extra Strength] 1 tab PO DAILY PRN (if needed) gabapentin 100 mg capsule 200 mg PO UD pantoprazole 40 mg tablet,delayed release 40 mg PO BID rosuvastatin 20 mg tablet 20 mg PO HS famotidine 40 mg tablet 40 mg PO BID Other Notes If you have any questions please call us at [phone] or [phone] or [phone] or [phone]
--- NOTE | 2023-08-20 08:21 | Anesthesiology Consultation ---
Date of Service August 20, 2023 Assessment & Plan (1) Encounter for pre-operative examination: Chart Review Chart Review: Acceptable Risk for Surgery and Patient seen in Pre Admission Testing - Check BSG AM DOS Pt currently scheduled as 23 hours observation. If surgeon decides to change patient to Same Day Joint, patient would be acceptable risk for TKA, pending patient is motivated, has good support and surgeon's office completes [facility] Program preop requirements. Per PAT appt on 08/20/23, no recent illness/disease exposures, illness related symptoms, or recent illness/disease positive tests. Will leave to surgeon's d iscretion if preop Covid testing needed ORIF distal radius left arm 07/06/21= Done under MAC with PNB. Left TSA 02/23/20= Done under GA with Grade I view with MAC #3 and ETT #7. DL x 1, atraumatic. Teaching & Discussion Pre-Anesthesia Teaching/Discussion Notes: Instructed NPO after midnight before surgery,except medications with 15 cc of water. Medication instructions provided according to the PAT guidelines. History Surgery Operation Date: 09/13/23 11:20 Proposed Procedures p Left Unicompartment Knee Arthroplasty versus Left Total Knee Arthroplasty - Pranay Johnson, DO Height/Weight Height: 5 ft 2 in Weight: 86.5 kg Allergies Allergy/AdvReac Type Severity Reaction Status Date / Time aspirin AdvReac Severe ESOPHAGEAL Verified 08/13/23 09:00 BLEED codeine AdvReac Intermediate GI Verified 08/13/23 09:00 SYMPTOMS, ALTERED MENTAL STATUS oxycodone [From Percocet] AdvReac Intermediate Vomiting, Verified 08/13/23 09:00 dizziness Medications Home Medications Medication Instructions Recorded Confirmed Last Taken acetaminophen 650 mg 1,300 mg PO Q12H 01/22/20 08/13/23 01/22/22 05:10 tablet,extended release amoxicillin 500 mg tablet 2,000 mg PO UD PRN PRIOR TO DENTAL 07/05/21 08/13/23 Unknown APPT. cetirizine 10 mg tablet (Zyrtec) 10 mg PO BID PRN Allergic Symptoms 10/17/21 08/13/23 01/22/22 05:10 hydroxychloroquine 200 mg tablet 200 mg PO BID #180 tabs 05/07/22 08/13/23 07/01/23 07:20 (Plaquenil) amlodipine 10 mg tablet (Norvasc) 5 mg (1/2 x 10 mg) PO HS #45 tabs 05/08/22 08/13/23 06/30/23 montelukast 10 mg tablet 10 mg PO QAM #90 tabs 11/19/22 08/13/23 Unknown losartan 50 mg tablet 50 mg PO HS #90 tabs 01/02/23 08/13/23 06/30/23 aluminum hydrox-magnesium carb 1 tab PO DAILY PRN .gas 03/27/23 08/13/23 Unknown [Gaviscon Extra Strength] gabapentin 100 mg capsule 200 mg PO UD 03/27/23 08/13/23 Unknown omalizumab 150 mg/mL subcutaneous 300 mg subcut UD 03/27/23 08/13/23 06/05/23 syringe prednisone 10 mg tablet 10 mg PO DAILY PRN HIVES 04/11/23 08/13/23 06/30/23 pantoprazole 40 mg tablet,delayed 40 mg PO BID #60 tabs 06/26/23 08/13/23 07/01/23 release sitagliptin phosphate 100 mg 100 mg PO QAM #90 tabs 06/26/23 08/13/23 06/30/23 tablet (Januvia) rosuvastatin 20 mg tablet 20 mg PO HS #90 tabs 07/08/23 08/13/23 Unknown famotidine 40 mg tablet 40 mg PO BID #60 tabs 07/09/23 08/13/23 Unknown hydrochlorothiazide 25 mg tablet 25 mg PO QAM 08/01/23 08/13/23 Unknown levothyroxine 137 mcg tablet 137 mcg PO QAM 08/01/23 08/13/23 Unknown (Synthroid) vibegron 75 mg tablet (Gemtesa) 75 mg PO QAM 08/01/23 08/13/23 Unknown Past Medical History Medical History Chronic idiopathic urticaria hx- well controlled and Xolair Environmental and seasonal allergies GERD (gastroesophageal reflux disease) well controlled and stable with medications History of COVID-19 06/2021> symptoms resolved History of kidney stones passed on own Hypertension Hypertriglyceridemia well controlled Hypothyroidism Lumbar herniated disc Nausea and vomiting after administration of anesthetic agent Osteoarthritis reason for plaquenil; denies RA, Follows with Dr. Mcdonald. 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 Type 2 diabetes mellitus oral meds- well controlled- Hgb A1C 6.6 on 08/13/23 Exercise / Class Metabolic Activity II 4-5 Yardwork/Stairs/Walk up hill (one flight of stairs - no chest pain or SOB ) Past Family History Family History Father Hypertension Coronary arteriosclerosis Uncle Colorectal cancer Grandmother (Maternal) Ovarian cancer Breast cancer Aunt Ovarian cancer Breast cancer Sister Hyperlipidemia Hypertension Mother Osteoporosis Rheumatic heart disease Other No family history of adverse response to anesthesia Past Surgical History Surgical History H/O unilateral salpingectomy History of carpal tunnel surgery rt/Left History of cryosurgery History of open reduction and internal fixation (ORIF) procedure left wrist History of partial hysterectomy History of partial knee replacement Rt History of surgical removal of pilonidal cyst History of tonsillectomy and adenoidectomy Hx of bilateral cataract extraction Hx of oral surgery S/P arthroscopy of knee S/P eye surgery BL -laser S/P laparoscopy with fulguration of oviducts S/P skin biopsy Slow to wake up after anesthesia Status post replacement of left shoulder joint (~01/2020) Past Anesthesia History No Hx of Anesthesia Complications (with exception with PONV and slow to wake - just groggy - no reintubation or ICU stay) and No Family Hx of Anesthesia Complications History of PONV No Hx of Motion Sickness and History of PONV (no issues with most recent colonoscopy and EGD ) Social History Smoking Status: Never smoker Do You Dip or Chew Tobacco: No Hx Alcohol Use: Yes alcohol intake frequency: holidays/special occasions only Hx Substance Use: No substance use type: does not use Review of Systems Patient denies chest pain, shortness of breath, dyspnea on exertion, cough, wheezing, palpitations. No hx of seizures, stroke, IA, apnea/snoring. No hx of blood clots or blood transfusions Physical Exam Vital Signs VITALS BP 117/71 P 63 TEMP 97.8 SP02 94% RESP 16 Constitutional no acute distress ENMT Mouth: no TMJ clicking Thyromental Distance: > or= 3.5 Finger Breadths (4.0) Mallampati Class: II Crowns to molars and side teeth Neck neck extension not limited Respiratory normal respiratory effort; no respiratory distress Auscultation: lungs clear to auscultation bilaterally; no wheezes Cardiovascular Rate/Rhythm: regular rate and regular rhythm Heart Sounds: no murmur Vessels: no carotid bruit Musculoskeletal Spine: no pain with cervical ROM Extremities: extremities normal to inspection Psychiatric Orientation: alert Lab Results Anesthesia Preop Results Results Anesthesia Widget: WBC 6.42 K/ul (4.8-10.8) 08/20/23 Hgb 13.8 g/dl (12.0-16.0) 08/20/23 Hct 42.0 % (37.0-47.0) 08/20/23 Plt 294 K/uL (130-400) 08/20/23 Na 138 mmol/L (136-145) 08/20/23 K 4.0 mmol/L (3.5-5.1) 08/20/23 Cl 103 mmol/L (98-107) 08/20/23 CO2 29 mmol/L (21-32) 08/20/23 BUN 19 mg/dl (6-23) 08/20/23 Creat 0.86 mg/dl (0.6-1.2) 08/20/23 Glucose Level 118 mg/dl (70-99(Fasting)) H 08/20/23 PT 10.3 Seconds (9.0-12.0) 08/20/23 PTT 30 Seconds (21-31) 08/20/23 INR 0.9 (0.9-1.1) 08/20/23 TSH 0.749 uIu/ml (0.300-4.500) 08/13/23 HA1c 6.6 % (4.5-5.6) H 08/13/23 Blood Type O Positive 08/20/23 Antibody Screen NEGATIVE 08/20/23 Testing Electrocardiogram Date: 08/20/23 Findings: + NSR @ (62bpm) Normal EKG per cardio Chest X-Ray Date: 08/20/23 FINDINGS: PA and lateral chest radiographs are compared to study dated 06/23/2021. The cardiomediastinal silhouette is top normal for projection noting atherosclerotic calcification of the thoracic aorta. The lungs and pleural spaces are clear. There is no pneumothorax. The skeletal structures are osteopenic. The bony thorax appears intact. A left shoulder arthroplasty is in place. Degenerative change and scoliosis is seen in the spine. IMPRESSION: No active disease in the chest. Stress Test Date: 10/18/21 Type: exercise (ECHO) Normal stress ECHO at 7.3 METS and peak HR of 99# age predicted maximum. No exercise induced chest pain No EKG changes Baseline ECHO notes normal LV systolic function without regional wall motion abnormalities. Borderline cLVH. Mild MR. Mild TR
--- NOTE | 2023-09-12 13:23 | History & Physical Report ---
Date of Service September 12, 2023 Assessment & Plan (1) Osteoarthritis, knee: We will proceed with a left partial knee replacement surgery. Postoperatively she will be started on Eliquis for DVT prophylaxis and kept overnight in the hospital for postop medical management. She plans to use fit for play from home for discharge. History of Present Illness Chief Complaint: Osteoarthritis of the left knee. Primary Care Provider: Ankur Love MD Xiomy is a pleasant 67-year-old female who has been dealing with chronic increasing left knee pain. X-rays and MRI have been diagnostic for mostly medial compartmental arthritis of the left knee. She has a history of a right partial knee replacement done by Dr. Seymour over 10 years ago. After failing conservative treatment with the left knee, she has elected proceed with a left partial knee replacement surgery. Allergies Allergy/AdvReac Type Severity Reaction Status Date / Time aspirin AdvReac Severe ESOPHAGEAL Verified 08/13/23 09:00 BLEED codeine AdvReac Intermediate GI Verified 08/13/23 09:00 SYMPTOMS, ALTERED MENTAL STATUS oxycodone [From Percocet] AdvReac Intermediate Vomiting, Verified 08/13/23 09:00 dizziness Home Medications Medication Instructions Recorded Confirmed Type acetaminophen 650 mg 1,300 mg PO Q12H 01/22/20 08/13/23 History tablet,extended release amoxicillin 500 mg tablet 2,000 mg PO UD PRN PRIOR TO DENTAL 07/05/21 08/13/23 History APPT. cetirizine 10 mg tablet (Zyrtec) 10 mg PO BID PRN Allergic Symptoms 10/17/21 08/13/23 History hydroxychloroquine 200 mg tablet 200 mg PO BID #180 tabs 05/07/22 08/13/23 Rx (Plaquenil) amlodipine 10 mg tablet (Norvasc) 5 mg (1/2 x 10 mg) PO HS #45 tabs 05/08/22 08/13/23 Rx montelukast 10 mg tablet 10 mg PO QAM #90 tabs 11/19/22 08/13/23 Rx losartan 50 mg tablet 50 mg PO HS #90 tabs 01/02/23 08/13/23 Rx aluminum hydrox-magnesium carb 1 tab PO DAILY PRN .gas 03/27/23 08/13/23 History [Gaviscon Extra Strength] gabapentin 100 mg capsule 200 mg PO UD 03/27/23 08/13/23 History omalizumab 150 mg/mL subcutaneous 300 mg subcut UD 03/27/23 08/13/23 History syringe prednisone 10 mg tablet 10 mg PO DAILY PRN HIVES 04/11/23 08/13/23 History pantoprazole 40 mg tablet,delayed 40 mg PO BID #60 tabs 06/26/23 08/13/23 Rx release sitagliptin phosphate 100 mg 100 mg PO QAM #90 tabs 06/26/23 08/13/23 Rx tablet (Januvia) rosuvastatin 20 mg tablet 20 mg PO HS #90 tabs 07/08/23 08/13/23 Rx famotidine 40 mg tablet 40 mg PO BID #60 tabs 07/09/23 08/13/23 Rx hydrochlorothiazide 25 mg tablet 25 mg PO QAM 08/01/23 08/13/23 History levothyroxine 137 mcg tablet 137 mcg PO QAM 08/01/23 08/13/23 History (Synthroid) vibegron 75 mg tablet (Gemtesa) 75 mg PO QAM 08/01/23 08/13/23 History solifenacin 5 mg tablet (Vesicare) 5 mg PO DAILY #90 tabs 08/26/23 08/26/23 Rx Past Med/Surg History Medical History History of kidney stones passed on own Hypertriglyceridemia well controlled Nausea and vomiting after administration of anesthetic agent Overactive bladder Environmental and seasonal allergies Chronic idiopathic urticaria hx- well controlled and Xolair History of COVID-19 06/2021> symptoms resolved Lumbar herniated disc Palpitations Resolved Holter monitor in past and negative - no gusset ripper Osteoarthritis reason for plaquenil; denies RA, Follows with Dr. Mcdonald. Type 2 diabetes mellitus oral meds- well controlled- Hgb A1C 6.6 on 08/13/23 GERD (gastroesophageal reflux disease) well controlled and stable with medications Hypertension Hypothyroidism Surgical History Hx of bilateral cataract extraction History of open reduction and internal fixation (ORIF) procedure left wrist Status post replacement of left shoulder joint (~01/2020) History of partial knee replacement Rt Slow to wake up after anesthesia History of partial hysterectomy S/P skin biopsy H/O unilateral salpingectomy History of tonsillectomy and adenoidectomy History of surgical removal of pilonidal cyst Hx of oral surgery History of carpal tunnel surgery rt/Left S/P laparoscopy with fulguration of oviducts S/P arthroscopy of knee S/P eye surgery BL -laser History of cryosurgery Family History Father Hypertension Coronary arteriosclerosis Uncle Colorectal cancer Grandmother (Maternal) Ovarian cancer Breast cancer Aunt Ovarian cancer Breast cancer Sister Hyperlipidemia Hypertension Mother Osteoporosis Rheumatic heart disease Other No family history of adverse response to anesthesia Social History Smoking Status: Never smoker Second Hand Exposure: No; Do You Dip or Chew Tobacco: No; Tobacco Cessation Education Requested by Patient: No Hx Alcohol Use: Yes Hx Substance Use: No Preferred Language: Irish Communication Ability: Effective Visual Impairment: No Limitations Hearing Ability: Normal Kennel Manager Dog Track Required: No Beliefs That Will Affect Care: None marital status: Current Living Situation: Spouse current occupational status: employed and retired Other Information That Helps Us Care for You: No Feels Safe at Home: Yes Safety Concerns: Feels Safe At This Time Childhood Exposure to Second-Hand Smoke: No Seatbelt Use: always Assistive Devices: None Review of Systems All systems reviewed & are unremarkable except as noted in HPI & below. Physical Exam Physical examination of the left knee, she has slight varus deformity. She has tenderness palpation of the distal medial femoral condyle and over the medial joint line.. Constitutional WD/WN, vitals as above Eyes PERRL, conjunctivae normal, anicteric sclerae ENMT external ear and nose normal, oropharynx normal Neck trachea midline, no thyromegaly Respiratory normal respiratory effort Cardiovascular RRR, no murmur, no edema Gastrointestinal (Abdomen) normal bowel sounds, soft, nontender, no hepatosplenomegaly Psychiatric A+Ox3, euthymic affect Results & Data Results & Data Laboratory Results . Diagnostic Findings X-rays of the left knee show some medial compartment arthritis with joint space narrowing.. PG Care Time/CCT Total # of Minutes Spent Total Time Spent with Patient: Total time spent is greater than 50% in coordination of care (as documented) at patient's floor/unit and/or counseling patient: Coding Level of Care Code None Diagnoses Osteoarthritis, knee M17.9
[~2023-09-13 07:19] MED LIST changes: -ACETAMINOPHEN 500 MG TAB PO SCH; -BUPIVACAINE 0.5 % 5 MG/1 ML PF 10ML VIAL ONE; -CEFAZOLIN 2000MG 2,000 MG/15 ML SYR IV SCH; -FAMOTIDINE 20 MG TAB PO SCH; -GABAPENTIN 300 MG CAP PO SCH; -LR 15ML/HR IV SCH; -LR 60ML/HR IV SCH; +MIDAZOLAM HCL 1 MG/ML 2ML VIAL ONE; +PHENYLEPHRINE 100MCG/ML 10ML SYR IV ONE; +ROPIVACAINE 0.5% 5 MG/ML 30 ML VIAL ONE; -ROPIVACAINE 0.5% HCL/PF 150 MG, BUPIVACAINE 0.5% MPF 30 ML, EPINEPHrine 30MG/30ML (OR U... INSTIL SCH; -TRANEXAMIC ACID 1,000 MG **IV Intra-op IV SCH; -TRANEXAMIC ACID 1,000 MG **IV Pre-op IV SCH; -dexAMETHasone 4 MG TAB PO SCH; +ePHEDrine sulfate 50 MG/5 ML SYR ONE; +fentaNYL citrate PF 100 MCG/2 ML VIAL ONE
[2023-09-13] MEDS ORDERED: PROPOFOL IV EMULSION 10 MG/ML 20 ML VIAL IV ONE ×2 (07:21)
[2023-09-13] MEDS ORDERED: LIDOCAINE 2% 2 ML VIAL/AMP(20MG/ML) INFIL ONE (07:22)
--- NOTE | 2023-09-13 08:05 | History & Physical Bridge Note ---
Date of Service September 13, 2023 History & Physical Bridge Note I have examined the patient, reviewed the History & Physical and in the interval since the performance of the History & Physical I have noted the following changes of clinical significance: no changes noted
[2023-09-13] MEDS: FAMOTIDINE 20 MG TAB PO SCH (08:30)
[2023-09-13] MEDS: dexAMETHasone**PF** 10 MG/ML VIAL IV SCH (08:30)
[2023-09-13] MEDS: LR 500ML BOLUS, THEN 15ML/HR IV SCH (08:30)
[2023-09-13] MEDS: GABAPENTIN 300 MG CAP PO SCH (08:31)
[2023-09-13] MEDS: ACETAMINOPHEN 500 MG TAB PO SCH ×2 (08:31→12:36)
[2023-09-13] MEDS: LR 60ML/HR IV SCH (08:31)
[2023-09-13] MEDS ORDERED: ATROPINE SULFATE 0.1 MG/ML 10ML SYR IV PRN (08:40)
[2023-09-13] MEDS ORDERED: ePHEDrine sulfate 50 MG/ML AMP IV PRN (08:40)
[2023-09-13] MEDS ORDERED: ONDANSETRON INJ 2 MG/ML 2 ML VIAL IV PRN ×2 (08:40→11:27)
[2023-09-13] MEDS ORDERED: fentaNYL citrate PF 100 MCG/2 ML VIAL IV PRN (08:40)
[2023-09-13] MEDS ORDERED: HYDROmorphone INJ 1 MG/ML SYRINGE IV PRN (08:40)
[2023-09-13] MEDS: TRANEXAMIC ACID 1,000 MG **IV Pre-op IV SCH (08:49)
[2023-09-13] MEDS: ceFAZolin 2000MG 2,000 MG/15 ML SYR IV SCH ×2 (09:00→16:57)
[2023-09-13] MEDS: ORTHO JOINT ANESTHETIC ONE (09:30)
[2023-09-13] MEDS: TRANEXAMIC ACID 1,000 MG **IV Intra-op IV SCH (09:50)
[2023-09-13] MEDS: ROPIV 0.5% 246mg, Ketorolac 30mg, EPINEPHrine 0.5mg in NSS INFIL SCH (10:03)
--- NOTE | 2023-09-13 10:04 | Operative Report ---
PG Post Operative Report Pre & Post Diagnosis Operation Date: 09/13/23 09:00 Pre-Op Diagnosis: Osteoarthritis of the left knee Post-Op Diagnosis: Osteoarthritis of the left knee I identified the patient and participated in the time-out.: Yes Procedure Operation Date: 09/13/23 09:00 Actual Procedures p Left Unicompartment Knee Arthroplasty(Left) - Pranay Johnson DO Surgeon Pranay Johnson DO Rag Room Supervisor Pranay Berger PA-C Estimated Blood Loss 30 Findings Consistent with Post-Op Diagnosis Specimens Left femoral and tibial bone Description of Procedure Implants used: I used a Linda persona partial knee replacement with a size 6 femur, a size E tibia, and a 11 mm polyethylene insert. On September 13, 2023 Xiomy arrived at [facility] for above procedure. She was seen in the preoperative holding area and the operative extremity identified and signed. She was given a preoperative antibiotic and a regional anesthetic and a spinal anesthetic. She was taken back to the operating room and laid on the table in supine position. She was put under basic sedation. The left knee was prepped and draped in sterile fashion. A timeout was done. The patient and the operative extremity was properly identified. A midline incision was made just medial to the patella tendon. Dissection was taken down through the fascia. A small mid vastus parapatellar arthrotomy was made. A small portion of the fat pad was removed. There was arthritis in the medial compartment. There was no arthritis in the patellofemoral joint. There was no arthritic changes or meniscal damage laterally. The ACL was intact. A decision was made to do a partial knee replacement. All osteophytes were removed. A proximal tibial resection guide was placed in the medial tibial plateau was resected. The knee was then brought into full extension. A distal femoral cutting block was placed and the distal femur was resected. The knee was then flexed. The distal femur measured to be a size 6. A size 6 cutting block was then pinned into place. 2 peg holes were drilled. Posterior and chamfer cuts were made. The tibia was then measured to be a size E. The cutting block was placed. 2 peg holes were drilled. The size 6 femoral trial was then impacted into place. A 11 mm polyethylene insert was then snapped into place. The knee was then brought through full range of motion and felt to be stable. All trial components were then removed. The final size 6 femur, size E tibia were cemented into place. Once cement had hardened a 11 mm polyethylene insert was snapped into place. The knee was then brought through a full range of motion and felt to be stable. The knee was then irrigated. Surrounding soft tissues were injected with 100 cc of an orthopedic pain control cocktail. The extensor mechanism was was closed with #1 Vicryl. Skin was closed with 2-0 Vicryl, 3 oh V-Loc suture, and sheri. She was then placed in a soft compressive dressing. She was then transferred to a [facility] and taken to the postanesthesia care unit in stable condition. She tolerated the procedure well. Pranay Berger PA-C, was present for the entire procedure. He was critical for patient positioning, prepping, draping, retraction exposure, wound closure and application of sterile dressing. I attest to the content of the Intraoperative Record and any orders documented therein. Any exceptions are noted below. I attest to the content of the Intraoperative Record and any orders documented therein. Any exceptions are noted below.
--- NOTE | 2023-09-13 10:45 | XRay Report ---
XR knee LT 1 or 2V routine HISTORY: 67 years-old Female Surgical Post Op left knee hemiarthroplasty COMPARISON: Knee MRI 07/04/2023 TECHNIQUE: 2 views of the left knee FINDINGS: Medial compartment hemiarthroplasty. Overlying skin sheri with expected postoperative soft tissue s welling with deep tissue air. There is mild lateral and patellofemoral compartment osteoarthritis. No acute fracture or unexpected opaque foreign body. IMPRESSION: Medial compartment hemiarthroplasty with expected postoperative changes. ACT 112: Negative or not required by law. The above report was generated using voice recognition software. It may contain grammatical, syntax o r spelling errors. Electronically signed by: Yeison Gomes M.D. 09/13/2023 10:42 AM
--- NOTE | 2023-09-13 11:03 | Anesthesiology Progress Note ---
Date of Service September 13, 2023 Anesthesia Post Procedure Vital Signs Vital Signs: Temp Pulse Resp BP Pulse Ox O2 Del Method 09/13/23 10:54 69 15 125/64 93 Room Air 09/13/23 10:40 66 16 127/71 94 Room Air 09/13/23 10:30 63 19 124/68 95 Room Air 09/13/23 10:20 36.0 C L 76 13 115/68 95 Room Air 09/13/23 08:21 36.8 C 59 L 18 157/77 H 94 Room Air Transfer of Care Handoff Completed per policy Notes Mental Status: alert / awake / arousable and participated in evaluation Patient Amnestic to Procedure: Yes Nausea / Vomiting: adequately controlled Pain: adequately controlled Airway Patency, RR, SpO2: stable & adequate BP & HR: stable & adequate Hydration State: stable & adequate Anesthetic Complications: no major complications apparent and Pt Satisfied with anesthetic care
[2023-09-13] MEDS ORDERED: CETIRIZINE HCL 10 MG TABLET PO PRN (11:27)
[2023-09-13] MEDS ORDERED: PHARMACY GLYCEMIC MGMT CONSULT PRN (11:27)
[2023-09-13] MEDS ORDERED: bisacodyL 10 MG SUPP PR PRN (11:27)
[2023-09-13] MEDS ORDERED: HYDROmorphone INJ 0.5 MG/0.5 ML SYR IV PRN (11:27)
[2023-09-13] MEDS ORDERED: MAGNESIUM HYDROXIDE SUSP 30 ML UDC PO PRN (11:27)
[2023-09-13] MEDS ORDERED: NALOXONE HCL 0.4 MG/1 ML VIAL/CARP IV PRN (11:27)
[2023-09-13] MEDS ORDERED: METOCLOPRAMIDE HCL INJ 5 MG/ML 2 ML VIAL IV PRN (11:27)
[2023-09-13] MEDS ORDERED: predniSONE 10 MG TABLET PO PRN (11:27)
[2023-09-13] MEDS ORDERED: OMALIZUMAB 150 MG/ML SQ SCH (11:27)
[2023-09-13] MEDS ORDERED: GLUCAGON FOR INJ 1 MG VIAL IM PRN (12:15)
[2023-09-13] MEDS ORDERED: CARBOHYDRATES FOR HYPOGLYCEMIA PO PRN (12:15)
[2023-09-13] MEDS ORDERED: DEXTROSE 50% 50 ML SYRINGE IV PRN (12:15)
[2023-09-13] MEDS ORDERED: GLUCOSE 40% GEL 15 GM TUBE PO PRN (12:15)
[2023-09-13] MEDS ORDERED: GLUCOSE 10 TAB/TUBE PO PRN (12:15)
[2023-09-13] MEDS: SODIUM CHLORIDE 0.9% 1,000 ML IV SCH (12:16)
[2023-09-13] MEDS: KETOROLAC TROMETHAMINE 15 MG/ML VIAL IV SCH (12:36)
[2023-09-13] MEDS: LANTUS PER UNIT CHARGE SC SCH (12:41)
[2023-09-13] MEDS: INSULIN ASPART PER UNIT CHARGE SC SCH (12:41)
[2023-09-13] MEDS: oxyCODONE HCL IR 5 MG TAB (IMMEDIATE RELEASE) PO PRN (13:56)
--- NOTE | 2023-09-13 14:07 | Pharmacy Report ---
Pharmacy Glycemic Short Note 2 - Date of Service September 13, 2023 - Glycemic Short BSG Results (Last 24 hours): 09/13/23 09/13/23 09/13/23 07:55 10:56 11:31 POC Glucose 154 H 164 H 174 H OUTPATIENT ANTIDIABETIC REGIMEN: * Januvia 100 mg PO QAM ASSESSMENT: * 67 y/o F admitted for Left TKA today. Patient has Type 2 diabetes managed only on Januvia at home. * BSG today were 154-174 mg/dl. She received IV Dexamethasone 10 mg in OR today. * Expect BSGs to trend up, so basal insulin 15 units (stress of 2) given with lunch today. * Novolog parameters ordered based on stress of 3 due to steroid on board. PLAN FOR INPATIENT GLYCEMIC CONTROL: * Hold outpatient oral diabetes medications * Basal insulin * Lantus 15 units SQ x1 at lunch. * Bolus insulin * NovoLog per scale ACHS or Q6hrs while NPO * Goal Range: Low 110 mg/dL - High 140 mg/dL * Correction Factor: 20 mg/dL/unit * Nutritional / Prandial insulin per carb ratio of 1 unit per 7 grams CHO consumed
[2023-09-13] MEDS: LOSARTAN POTASSIUM 50 MG TAB PO SCH (20:22)
[2023-09-13] MEDS: SENNA 8.6 MG TAB PO SCH (20:23)
[2023-09-13] MEDS: FAMOTIDINE 40 MG TABLET PO SCH (20:23)
[2023-09-13] MEDS: HYDROXYCHLOROQUINE SULFATE 200 MG TAB PO SCH (20:23)
[2023-09-13] MEDS: DOCUSATE SODIUM 100 MG CAP PO SCH (20:23)
[2023-09-13] MEDS: PANTOprazole 40 MG TAB PO SCH (20:23)
[2023-09-13] MEDS: amLODIPine BESYLATE 5 MG TAB PO SCH (20:23)
[2023-09-13] MEDS: GABAPENTIN 400 MG CAP PO SCH (20:24)
[2023-09-13] MEDS: ROSUVASTATIN CALCIUM 20 MG TAB PO SCH (20:24)
[2023-09-13] MEDS ORDERED: ASPIRIN 81 MG ECTAB PO SCH (21:00)
[2023-09-14] MEDS: LEVOTHYROXINE SODIUM 137 MCG TABLET PO SCH (05:31)
[2023-09-14] MEDS: hydroCHLOROthiazide 25 MG TAB PO SCH (07:20)
[2023-09-14] MEDS: MONTELUKAST SODIUM 10 MG TABLET PO SCH (07:20)
[2023-09-14] MEDS: APIXABAN 2.5 MG TAB PO SCH (07:21)
[2023-09-14] MEDS: OXYBUTYNIN CHLORIDE XL 5 MG TABCR PO SCH (07:21)
[2023-09-14] MEDS: MULTIVITAMIN TAB PO SCH (07:21)
[2023-09-14] MEDS: GABAPENTIN 100 MG CAP PO SCH (07:21)
--- NOTE | 2023-09-14 08:21 | Orthopedic Progress Note ---
Date of Service September 14, 2023 Assessment & Plan (1) Status post left partial knee replacement: Overall she is doing very well. She is not having much pain in the left knee. She will be seen by physical therapy today for ambulation and range of motion exercises. She is on Eliquis for DVT prophylaxis. She can be discharged home later today. She will follow-up orthopedics in 2 weeks. Subjective Xiomy was seen and examined at bedside this morning. Overall she is doing very well. She is not having much pain in the left knee. She has been up and ambulate to the bathroom. She is no complaints.. Review of Systems All systems reviewed & are unremarkable except as noted in HPI & below. Physical Exam On physical examination of the left knee, the dressing is clean and dry. Her leg is out full extension. She is active dorsiflexion plantarflexion of her left ankle.. Results & Data Results & Data Laboratory Results . Diagnostic Findings Postoperative x-rays of the left knee show the prosthesis to be in anatomic alignment without any evidence of fracture complication, or loosening.. PG Care Time/CCT Total # of Minutes Spent Total Time Spent with Patient: Total time spent is greater than 50% in coordination of care (as documented) at patient's floor/unit and/or counseling patient: Coding Level of Care Code 12672 Post Operative Follow-Up Diagnoses Status post left partial knee replacement Z96.652
--- NOTE | 2023-09-14 08:22 | Discharge Summary ---
Date of Service September 14, 2023 Admission HPI (Per Admitting) Xiomy is a pleasant 67-year-old female who has been dealing with chronic increasing left knee pain. X-rays and MRI have been diagnostic for mostly medial compartmental arthritis of the left knee. She has a history of a right partial knee replacement done by Dr. Seymour over 10 years ago. After failing conservative treatment with the left knee, she has elected proceed with a left partial knee replacement surgery. Admission Exam (Per Admitting) Physical examination of the left knee, she has slight varus deformity. She has tenderness palpation of the distal medial femoral condyle and over the medial joint line.. Principal Diagnosis Same as "Discharge Diagnosis" noted below under Discharge Instructions. Discharge Exam On physical examination of the left knee, the dressing is clean and dry. Her leg is out full extension. She is active dorsiflexion plantarflexion of her left ankle.. Discharge Data Procedures Performed Operation Date: 09/13/23 09:00 Actual Procedures p Left Unicompartment Knee Arthroplasty(Left) - Pranay Johnson DO Ordered Studies 09/13/23 05:00 US - OR guided needle placemen Routine Hospital Course (1) Status post left partial knee replacement: On September 13, 2023 Xiomy arrived at [facility] and underwent a le ft partial knee replacement without complication. She had a spinal anesthetic. Postoperatively she was started on Eliquis for DVT prophylaxis and transferred to the general orthopedic floors. Her hospital course was uneventful. On postop day #1, her vital signs were stable and her pain was well-controlled. She was able to participate well with physical therapy doing ambulation and range of motion exercises. She was then discharged home. She will follow with orthopedics in 2 weeks. PG Care Time/CCT Total # of Minutes Spent Total Time Spent with Patient: Total time spent is greater than 50% in coordination of care (as documented) at patient's floor/unit and/or counseling patient: Discharge Plan Discharge Items Patient Disposition: Home - Self-Care Reason For Visit: Left Knee Degenerative Joint Disease Discharge Diagnosis: Left partial knee replacement Activity: Per Instructions section Non-emergency contact: Surgeon Call non-emergency contact if: your wound has increased redness and your wound has increased drainage Follow-up/Referrals: Pro,Ankur Diego MD [Primary Care Provider] - Diet: Regular Addtl Attending Provider Instructions: Activity and Therapy Recommendations: * If you are using [facility] then therapy will be provided at your home until they feel you have accomplished all of your goals. * If you are using [facility] then Physical Therapy will be provided until they feel you are ready to start Outpatient Physical Therapy. * If you are not using home therapy then Outpatient Physical Therapy should start about 3-5 days from your day of surgery. Therapy will last about 6-10 weeks * It is important not to put a pillow under your knee when you are relaxing or sleeping. It is just as important to make sure you are getting your knee perfectly straight as it is to regain your knee bend. * You were shown a series of exercises in the hospital. Do these exercises three times each day including the exercises you were shown in physical therapy. * Get up and walk several times each day. For the first four weeks, try not to stand or walk for more than one hour at a time. If you do stand or walk for more than one hour, you will not hurt anything, but your leg will likely swell. * As you feel comfortable, you may change from the walker or crutches to a cane and then to independent walking. Medications: * Narcotic You will likely be sent home from the hospital with a prescription for the narcotic pain medication that worked best throughout your stay. * Cefadroxil -take the antibiotic twice a day for 10 days to help prevent infection. * Eliquis -take Eliquis 2.5 mg twice a day for 10 days to help prevent blood clots. * Other medications may be prescribed for specific circumstances. If you have any questions, please call the office at . * Resume previous home medications unless otherwise instructed TEDs/Elastic Stockings: The white elastic stockings help limit swelling and prevent blood clots from forming in your legs.~ The more you wear them, the more they work. Wear them for six weeks. Dressing Care: The dressing can be changed after physical therapy on postop day #1. Daily dry dressing changes for a few days, especially if the incision is still draining some. If the incision is not draining then you may leave the sheri open to air. If there is a little bit of drainage or if the sheri are getting stuck on your clothing then cover the incision with a dry dressing. The sheri will be removed at your 2 week follow-up appointment. Showering: You may shower 5 days from the day of surgery as long as the incision is no longer draining. You may shower with the sheri exposed. Let soapy water run over the sheri and pat them dry. Do not scrub or soak the incision. Things To Watch For: * Drainage from the incision site that occurs more than one week after your surgery. * Increased redness at the incision site. * Fever above 102 degrees Fahrenheit. * Unusual chest pain or shortness of breath. * Call [facility] at with any of the above problems Follow-Up Visit: Follow-up with Dr. Johnson's PA (Pranay Berger) 2-3 weeks after your day of surgery. He will remove your sheri and answer any questions. If you have any additional questions or concerns, Dr Johnson is usually in the office at the same time and will be available An appointment was probably scheduled when you signed-up for surgery in the office. If you have any questions call Office Instructions: More detailed instructions as well as Frequently Asked Questions were provided in a folder by our office when you signed-up for surgery. Please review these instructions when you get home. If you have any further questions or concerns, please feel free to call the office at [phone] Pending Studies at Discharge: No Stand-Alone Forms: My [facility], Smoking Cessation Medications and DC Order Prescriptions: New oxycodone 5 mg Tablet 5 mg PO Q4H PRN (Reason: pain) Qty: 30 0RF Eliquis 2.5 mg Tablet 2.5 mg PO BID 10 Days Qty: 20 0RF cefadroxil 500 mg capsule 500 mg PO BID 10 Days Qty: 20 0RF Continued hydroxychloroquine [Plaquenil] 200 mg tablet 200 mg PO BID Qty: 180 3RF montelukast 10 mg tablet 10 mg PO QAM Qty: 90 3RF losartan 50 mg tablet 50 mg PO HS Qty: 90 3RF Rx Instructions: TAKE 1 TABLET BY MOUTH AT BEDTIME Januvia 100 mg tablet 100 mg PO QAM Qty: 90 3RF rosuvastatin 20 mg tablet 20 mg PO HS Qty: 90 3RF Rx Instructions: TAKE 1 TABLET BY MOUTH AT BEDTIME famotidine 40 mg tablet 40 mg PO BID Qty: 60 3RF amlodipine 5 mg tablet 5 mg PO HS Qty: 90 3RF prednisone 10 mg tablet 10 mg PO DAILY PRN (Reason: HIVES) Rx Instructions: 2 daily as directed gabapentin 100 mg capsule 200 mg PO UD Rx Instructions: 200mg AM 400 PM Xolair 150 mg/mL syringe 300 mg subcut UD Rx Instructions: Inject 300 mg subcut EVERY 4 WEEKS APPROVED GOOD 09/21/22-09/22/23 REF# [id number] aluminum hydrox-magnesium carb [Gaviscon Extra Strength] 1 tab PO DAILY PRN (Reason: .gas) solifenacin [Vesicare] 5 mg tablet 5 mg PO DAILY Qty: 90 3RF acetaminophen 650 mg Tablet Extended Release 1,300 mg PO Q12H amoxicillin 500 mg tablet 2,000 mg PO UD PRN (Reason: PRIOR TO DENTAL APPT.) Rx Instructions: 2,000 mg orally ;500 mg PO 4 tablets one hour prior to procedure ; cetirizine [Zyrtec] 10 mg Tablet 10 mg PO BID PRN (Reason: Allergic Symptoms) levothyroxine [Synthroid] 137 mcg tablet 137 mcg PO QAM hydrochlorothiazide 25 mg tablet 25 mg PO QAM pantoprazole [Protonix] 40 mg tablet,delayed release (DR/EC) 40 mg PO BID Discharge Orders: Discharge Order (Routine); Ordered 09/14/23 Ordered By: Pranay Johnson Admission Data Admit Date/Time: 09/13/23 10:22 Attending Provider: Pranay Johnson Admit Provider: Pranay Johnson Primary Care Provider: Ankur Love
== END 2023-09-14 11:33 | disposition home or self-care (01) ==
LOC: 3E 07:19 → ASU 07:19

== ENCOUNTER 2024-12-18 12:15 | Inpatient (IN) ==
--- NOTE | 2024-12-18 12:31 | Emergency Department Note ---
Impression & Plan Closed left hip fracture Admission ED Provider Note HPI: History obtained from patient. The patient is a 69-year-old female who presents the emergency department with a chief complaint of left hip pain after a fall. Patient states that she was in her driveway when she believes she tripped on her shoe and then fell directly on her left hip. Patient states she had severe pain in the left hip after her fall. On arrival here to the ED the patient is laying on her right side with her left hip slightly flexed. Motor and sensory function is intact distally in the left foot. ROS: - Per HPI Differential Diagnosis: Closed hip fracture, hip dislocation, pelvic fracture, femur fracture, amongst other potential pathologies. *Outpatient medications and allergy history reviewed. PE: General: Alert HEENT: Normocephalic, trachea midline Eyes: Extraocular eye movement is intact, no scleral erythema Pulmonary: Clear to auscultation bilaterally, no wheezing Cardio: Regular rate and rhythm GI: Abdomen is soft to palpation : No suprapubic tenderness MSK: Left hip held in slight flexion with limited range of motion secondary to pain, motor and sensory function is intact distally in the left foot Skin: No evidence of rash Neuro: Alert, no focal deficits Psychiatric: Cooperative INDEPENDENT INTERPRETATIONS: monitoring specialist: (As interpreted by myself): - An order was placed for continuous cardiac monitoring - Patient was noted to be in sinus rhythm with a rate of 80 Interventions provided in ED: - IV morphine, IV Zofran Medical Decision Making: IV was established and lab work obtained, patient was placed on monitoring specialist. Lab work shows no leukocytosis, hemoglobin is normal, platelet count is normal, CMP does not show any evidence of any critical findings. Urinalysis shows hematuria without evidence of infection. X-ray imaging of the hips does confirm evidence of closed left intertrochanteric hip fracture with comminuted/impacted component. I discussed the patient's presentation and imaging findings with on-call orthopedics, Dr. Seymour, he is in agreement for consultation upon inpatient admission to the hospitalist service. Case was then discussed with the on-call hospitalist, Dr. Peacock, and the patient was placed for admission in stable condition. Consultants/Discussions held with other healthcare providers: - Orthopedics, Dr. Seymour - Hospitalist, Dr. Peacock Disposition discussion held by myself with: - Patient and patient's family members at the bedside Diagnosis: 1. Hip fracture, acute, left-sided, closed 2. Mechanical fall from ground-level Disposition: Admission Mahin Gould DO Emergency Medicine Past Med/Surg History Problem List (Updated 12/18/24 @ 16:23 by Mahin Gould DO) Closed left hip fracture (Acute) Visit for monitoring Xolair therapy Status post left partial knee replacement (~08/2023) Mixed stress and urge urinary incontinence History of colon polyps Osteoarthritis, knee Osteoarthritis of left hip Rib pain on left side Left lateral abdominal pain Current use of proton pump inhibitor Chronic idiopathic urticaria Asthma Status post replacement of left shoulder joint (~01/2020) Microscopic hematuria Right ureteral stone Osteoarthritis reason for plaquenil; denies RA, Follows with Dr. Mcdonald. Type 2 diabetes mellitus oral meds- well controlled- Hgb A1C 6.6 on 08/13/23 GERD (gastroesophageal reflux disease) well controlled and stable with medications Hyperlipidemia, unspecified Hypertension Hypothyroidism Rectocele (03/01/14) Medical History Encounter for pre-operative examination Elevated glucose Chest pain Chest pain Asymptomatic COVID-19 virus infection Obesity Encounter for pre-operative examination Toe fracture Subungual hematoma of toe Left wrist sprain Fall from slip, trip, or stumble Hypothyroidism Diabetes mellitus, type 2 Osteoarthritis Mixed stress and urge urinary incontinence Hypertension Hyperlipidemia History of colon polyps GERD (gastroesophageal reflux disease) History of chest pain History of kidney stones Hypertriglyceridemia Nausea and vomiting after administration of anesthetic agent Overactive bladder Environmental and seasonal allergies Chronic idiopathic urticaria History of COVID-19 Lumbar herniated disc Palpitations Surgical History History of left cataract extraction Status post replacement of left shoulder joint (01/2020) Status post left partial knee replacement (08/2023) History of colonoscopy History of open reduction and internal fixation (ORIF) procedure History of partial knee replacement Slow to wake up after anesthesia History of partial hysterectomy S/P skin biopsy H/O unilateral salpingectomy History of tonsillectomy and adenoidectomy History of surgical removal of pilonidal cyst Hx of oral surgery History of carpal tunnel surgery S/P laparoscopy S/P arthroscopy of knee S/P eye surgery History of cryosurgery Family History Father Hypertension Coronary arteriosclerosis Uncle Colorectal cancer Grandmother (Maternal) Ovarian cancer Breast cancer Aunt Ovarian cancer Breast cancer Sister Hyperlipidemia Hypertension Mother Osteoporosis Rheumatic heart disease Other No family history of adverse response to anesthesia Social History Smoking Status: Never smoker Second Hand Exposure: No; Do You Dip or Chew Tobacco: No; Hx Alcohol Use: Yes (rarely) Hx Substance Use: No Preferred Language: Vietnamese Communication Ability: Effective Visual Impairment: No Limitations Hearing Ability: Normal 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 Required: No Beliefs That Will Affect Care: None marital status: Current Living Situation: Spouse current occupational status: employed and retired Feels Safe at Home: Yes Childhood Exposure to Second-Hand Smoke: No Seatbelt Use: always Assistive Devices: Glasses Allergies Allergies Allergy/AdvReac Type Severity Reaction Status Date / Time aspirin AdvReac Severe ESOPHAGEAL Verified 12/18/24 15:44 BLEED codeine AdvReac Intermediate GI Verified 12/18/24 15:44 SYMPTOMS, ALTERED MENTAL STATUS oxycodone [From Percocet] AdvReac Intermediate Vomiting, Verified 12/18/24 15:44 dizziness Home Meds Home Medications Medication Instructions Recorded Confirmed acetaminophen 650 mg 1,300 mg PO Q12H 01/22/20 12/18/24 tablet,extended release amoxicillin 500 mg tablet 2,000 mg PO UD PRN PRIOR TO DENTAL 07/05/21 12/18/24 APPT. cetirizine 10 mg tablet (Zyrtec) 10 mg PO DAILY PRN Allergic 10/17/21 12/18/24 Symptoms hydrochlorothiazide 25 mg tablet 25 mg PO QAM PRN Fluid Retention 08/01/23 12/18/24 multivitamin 1 tab PO QPM 08/27/24 12/18/24 cholecalciferol (vitamin D3) 25 25 mcg PO DAILY 10/08/24 12/18/24 mcg (1,000 unit) capsule vitamin B complex 1 cap PO DAILY 10/08/24 12/18/24 aluminum hydrox-magnesium carb 160 1 tab PO DAILY PRN GAS DISCOMFORT 12/18/24 12/18/24 mg-105 mg chewable tablet (Gaviscon Extra Strength) calcium carbonate 1,000 mg PO BID 07/25/25 07/25/25 duloxetine 30 mg capsule,delayed 30 mg PO DAILY 12/18/24 12/18/24 release Previous Rx's Medication Instructions Recorded montelukast 10 mg tablet 10 mg PO QAM #100 tabs 11/06/23 losartan 50 mg tablet 50 mg PO HS #90 tabs 01/03/24 amlodipine 5 mg tablet 5 mg PO HS #90 tabs 06/24/24 rosuvastatin 20 mg tablet 20 mg PO HS #90 tabs 06/24/24 omalizumab 150 mg/mL subcutaneous 300 mg (2 mL) subcut .COMPLEX #2 mL 07/09/24 syringe (Xolair) gabapentin 100 mg capsule 200 mg (2 x 100 mg) PO UD #540 caps 07/21/24 Magic Mouthwash 300 mL mouthwash 5 ml mucous membrane Q4H PRN oral 08/11/24 pain #300 mL sitagliptin phosphate 100 mg 100 mg PO QAM #90 tabs 08/17/24 tablet (Januvia) hydroxychloroquine 200 mg tablet 200 mg PO BID #180 tabs 08/31/24 (Plaquenil) folic acid 1 mg tablet 3 mg (3 x 1 mg) PO HS #90 tabs 09/21/24 solifenacin 5 mg tablet (Vesicare) 5 mg PO QPM #90 tabs 10/13/24 tramadol 50 mg tablet 50 mg PO DAILY PRN Pain #10 tabs 10/22/24 levothyroxine 137 mcg tablet 137 mcg PO QAM #90 tabs 11/10/24 (Synthroid) pantoprazole 40 mg tablet,delayed 40 mg PO BID #180 tabs 12/01/24 release (Protonix) famotidine 40 mg tablet 40 mg PO BID #60 tabs 12/18/24 Results & Data (ED) Vital Signs Vital Signs - 24 hr 12/18/24 12:23 12/18/24 13:28 12/18/24 14:48 Temperature 36.7 C Temperature Source Oral Pulse Rate 79 65 75 Pulse Rate from SpO2 Sensor 76 Respiratory Rate 18 21 Respiratory Effort / Characteristics Non-Labored Spontaneous Respiratory Depth Normal Blood Pressure 158/110 H 155/87 H Blood Pressure Mean 126 109 Pulse Oximetry 99 93 Oxygen Delivery Method Room Air Sepsis Recent Fever Within 48 Hours No Sepsis New/Unexplained Change in Mental Status No Sepsis Action Taken by Nursing No Action Required 12/18/24 14:49 Temperature Temperature Source Pulse Rate Pulse Rate from SpO2 Sensor Respiratory Rate Respiratory Effort / Characteristics Respiratory Depth Blood Pressure Blood Pressure Mean Pulse Oximetry 98 Oxygen Delivery Method Room Air Sepsis Recent Fever Within 48 Hours Sepsis New/Unexplained Change in Mental Status Sepsis Action Taken by Nursing Laboratory Data 12/18/24 12:39 12/18/24 12:39 Lab Results 12/18/24 12/18/24 Range/Units 12:39 Unknown WBC 7.22 (4.8-10.8) K/ul RBC 4.70 (4.20-5.40) M/uL Hgb 14.1 (12.0-16.0) g/dl Hct 42.2 (37.0-47.0) % MCV 89.8 (80.0-100.0) fL MCH 30.0 (25.0-34.0) pg MCHC 33.4 (32.0-36.0) g/dL RDW Std Deviation 43.0 (36.4-46.3) fL RDW Coeff of [place] 13.0 (11.5-14.5) % Plt Count 285 (130-400) K/uL MPV 9.6 (9.4-12.4) fL Immature Gran % (Auto) 0.8 % Neut % (Auto) 61.2 % Lymph % (Auto) 27.1 % [place] % (Auto) 7.9 % Eos % (Auto) 2.4 % Baso % (Auto) 0.6 % Neut # (Auto) 4.42 (1.40-6.50) K/uL Lymph # (Auto) 1.96 (1.20-3.40) K/uL [place] # (Auto) 0.57 (0.11-0.59) K/uL Eos # (Auto) 0.17 (0.00-0.50) K/uL Baso # (Auto) 0.04 (0.00-0.20) K/uL Immature Gran # (Auto) 0.06 (0.01-0.20) K/uL PT 10.3 (9.0-12.0) Seconds INR 0.9 (0.9-1.1) Sodium 137 (136-145) mmol/L Potassium 3.7 (3.5-5.1) mmol/L Chloride 102 (98-107) mmol/L Carbon Dioxide 28 (21-32) mmol/L Anion Gap 7 (3-11) BUN 21 (6-23) mg/dl Creatinine 0.90 (0.6-1.2) mg/dl Est Cr Clr Drug Dosing 59.9 ml/min eGFR 68.77 BUN/Creatinine Ratio 23.3 H (10-20) Glucose 150 H (70-99(Fasting)) mg/dl Calcium 9.9 (8.6-10.3) mg/dl Total Bilirubin 0.6 (0.2-1.0) mg/dl AST 15 (13-39) U/L ALT 13 (7-52) U/L Alkaline Phosphatase 90 (34-104) U/L Total Protein 7.8 (6.0-8.3) gm/dl Albumin 4.4 (3.4-5.0) gm/dl Globulin 3.4 (2.5-4.0) gm/dl Albumin/Globulin Ratio 1.3 (0.9-2) Lipase 39 (11-82) U/L Urine Color Yellow Urine Appearance Clear (Clear) Urine pH 8.0 H (4.5-7.5) Ur Specific [place] 1.014 (1.000-1.030) Urine Protein 1+ H (Negative) Urine Glucose (UA) Negative (Negative) Urine Ketones Negative (Negative) Urine Blood 2+ H (Negative) Urine Nitrite Negative (Negative) Urine Bilirubin Negative (Negative) Urine Urobilinogen Negative (Negative) Ur Leukocyte Esterase Negative (Negative) Urine WBC (Auto) 0-5 (0-5) /hpf Urine RBC (Auto) >20 H (0-2) /hpf U Hyaline Cast (Auto) 0-2 (0-2) /lpf U Epithel Cells (Auto) 0-2 (0-2) /hpf Urine Bacteria (Auto) None Seen (None Seen) Urine Comment Administered Medications Discontinued Medications Morphine Sulfate (Morphine Sulfate 4 Mg/Ml 1 Ml Carp\\Vial) 4 mg IV NOW STA Stop: 12/18/24 12:28 Last Admin: 12/18/24 12:35 Dose: 4 mg Documented By: AMY Morphine Sulfate (Morphine Sulfate 4 Mg/Ml 1 Ml Carp\\Vial) 4 mg IV NOW STA Stop: 12/18/24 14:26 Last Admin: 12/18/24 14:38 Dose: 4 mg Documented By: AMY Ondansetron HCl (Ondansetron Inj 2 Mg/Ml 2 Ml Vial) 4 mg IV NOW STA Stop: 12/18/24 12:28 Last Admin: 12/18/24 12:35 Dose: 4 mg Documented By: AMY Imaging Data Radiologist's Impression: Hip/Pelvis X-Ray 12/18/24 12:26 XR hip BRIAN 2v w pelvis CLINICAL HISTORY: L hip pain s/p fall COMPARISON STUDY: CT of the abdomen and pelvis August 02, 2023. Left hip radiographs October 09, 2024. FINDINGS: Sacroiliac joints and symphysis pubis are intact. No right hip fracture is present. There is an acute impacted mildly displaced intertrochanteric fracture of the left femur which extends to the base of the femoral neck. Severe left hip osteoarthritis is noted. IMPRESSION: 1. Acute impacted mildly displaced intertrochanteric fracture of the left femur which extends to the base of the femoral neck. 2. Severe left hip osteoarthritis. ACT 112: Negative or not required by law. Electronically signed by: Jimenez Huff M.D. 12/18/2024 1:39 PM Chest X-Ray 12/18/24 14:09 PORTABLE SUPINE AP CHEST RADIOGRAPH CLINICAL HISTORY: Preoperative evaluation. COMPARISON STUDY: Chest radiograph and chest CT January 19, 2024. FINDINGS: Left shoulder arthroplasty is incidentally noted. There is no pneumothorax or pleural effusion. Cardiomediastinal silhouette is stable. There is no evidence for pulmonary edema. There is no consolidation. IMPRESSION: No acute cardiopulmonary findings. ACT 112: Negative or not required by law. Electronically signed by: Jimenez Huff M.D. 12/18/2024 3:[address] 12/18/24 14:[address] WITHOUT CONTRAST CLINICAL HISTORY: Evaluate fracture, w/3D recon please. COMPARISON STUDY: Left hip radiographs performed earlier today. TECHNIQUE: Axial images of the left hip were obtained without IV contrast. Sagittal and coronal reformats were viewed. A dose lowering technique was utilized adhering to the principles of ALARA. FINDINGS: There is an acute impacted mildly displaced comminuted intertrochanteric fracture of the left femur. Several bone fragments are present. Severe joint space narrowing of the left hip with subchondral sclerosis and cystic change is present. There are no acute fractures within visualized portions of the left hemipelvis. There is sigmoid diverticulosis with evidence for acute diverticulitis IMPRESSION: 1. Acute comminuted impacted mildly displaced intertrochanteric fracture of the left femur. 2. Severe left hip osteoarthritis. ACT 112: Negative or not required by law. Electronically signed by: Jimenez Huff M.D. 12/18/2024 3:09 PM Discharge Plan Visit Data Chief Complaint: Hip Pain Stated Complaint: FALL, HIP PAIN ED Provider: Mahin Gould Discharge Problem: Closed left hip fracture Patient Disposition: Admitted As Inpatient Condition: Fair Forms Stand Alone Forms: [facility] Prescriptions Prescriptions: No Action montelukast 10 mg tablet 10 mg PO QAM Qty: 100 3RF losartan 50 mg tablet 50 mg PO HS Qty: 90 3RF Rx Instructions: TAKE 1 TABLET BY MOUTH AT BEDTIME amlodipine 5 mg tablet 5 mg PO HS Qty: 90 3RF rosuvastatin 20 mg tablet 20 mg PO HS Qty: 90 3RF Rx Instructions: PER PT "LOSE PILL BLT ON E October, HAVE NOT REFILLED YET". TAKE 1 TABLET BY MOUTH AT BEDTIME Xolair 150 mg/mL syringe 300 mg subcut .COMPLEX Qty: 2 11RF Rx Instructions: Inject 300 mg subcut EVERY 4 WEEKS APPROVED GOOD 05/27/24-07/08/25 [id number] gabapentin 100 mg capsule 200 mg PO UD Qty: 540 3RF Rx Instructions: TAKES 200 MG QAM, THEN 400 MG QPM. Magic Mouthwash 300 mL mouthwash 5 ml mucous membrane Q4H PRN (Reason: oral pain) Qty: 300 0RF Rx Instructions: Benadryl 12.5 mg/5 mL oral elixir; Maalox 200 mg-200 mg-20 mg/5 mL oral suspension; Xylocaine Viscous 2 % mucosal solution;[Generic substitution ok] 1:1:1 compound Per 300 mL Swish and spt Januvia 100 mg tablet 100 mg PO QAM Qty: 90 3RF hydroxychloroquine [Plaquenil] 200 mg tablet 200 mg PO BID Qty: 180 3RF folic acid 1 mg tablet 3 mg PO HS Qty: 90 3RF solifenacin [Vesicare] 5 mg tablet 5 mg PO QPM Qty: 90 3RF Rx Instructions: PER PT "LOST PILL BLT ON , BEGINNING OF OCTOBER, PHARMACY WILL REFILL 12/19/24". tramadol 50 mg tablet 50 mg PO DAILY PRN (Reason: Pain) Qty: 10 0RF levothyroxine [Synthroid] 137 mcg tablet 137 mcg PO QAM Qty: 90 1RF pantoprazole [Protonix] 40 mg tablet,delayed release (DR/EC) 40 mg PO BID Qty: 180 0RF famotidine 40 mg tablet 40 mg PO BID Qty: 60 5RF cholecalciferol (vitamin D3) 25 mcg (1,000 unit) capsule 25 mcg PO DAILY vitamin B complex Capsule 1 cap PO DAILY acetaminophen 650 mg Tablet Extended Release 1,300 mg PO Q12H amoxicillin 500 mg tablet 2,000 mg PO UD PRN (Reason: PRIOR TO DENTAL APPT.) Rx Instructions: 2,000 mg orally ;500 mg PO 4 tablets one hour prior to procedure ; cetirizine [Zyrtec] 10 mg Tablet 10 mg PO DAILY PRN (Reason: Allergic Symptoms) hydrochlorothiazide 25 mg tablet 25 mg PO QAM PRN (Reason: Fluid Retention) multivitamin Tablet 1 tab PO QPM calcium carbonate [Calcium 500] 500 mg calcium (1,250 mg) Tablet 1,000 mg PO BID Gaviscon Extra Strength 160-105 mg Tablet,Chewable 1 tab PO DAILY PRN (Reason: GAS DISCOMFORT) duloxetine 30 mg capsule,delayed release(DR/EC) 30 mg PO DAILY Referrals Referrals: Ankur Love MD [Primary Care Provider] - Discharge Problem: Closed left hip fracture Qualifiers: Encounter type: initial encounter Qualified Code(s): S72.002A - Fracture of unspecified part of neck of left femur, initial encounter for closed fracture
[2024-12-18] MEDS: ONDANSETRON INJ 2 MG/ML 2 ML VIAL IV STA (12:35)
[2024-12-18] MEDS: MoRPHine SULFATE 4 MG/ML 1 ML CARP\\VIAL IV STA ×2 (12:35→14:38)
[2024-12-18 12:51] LABS: Hematocrit (blood only) 42.2 % (37.0-47.0); Hemoglobin 14.1 g/dl (12.0-16.0); Immature Granulocytes # (auto) 0.06 K/uL (0.01-0.20); Immature Granulocytes % (auto) 0.8 %; Mean Corpuscular Hemoglobin 30.0 pg (25.0-34.0); Mean Corpuscular Volume 89.8 fL (80.0-100.0); Platelet Count 285 K/uL (130-400); RDW Standard Deviation 43.0 fL (36.4-46.3); Red Blood Count 4.70 M/uL (4.20-5.40); White Blood Count 7.22 K/ul (4.8-10.8)
[2024-12-18 13:09] LABS: Alanine Aminotransferase 13.0 U/L (7-52); Albumin Globulin Ratio 1.3 (0.9-2); Alkaline Phosphatase 90.0 U/L (34-104); Anion Gap 7.0 (3-11); Bilirubin,Total 0.6 mg/dl (0.2-1.0); Blood Urea Nitrogen 21.0 mg/dl (6-23); Calcium 9.9 mg/dl (8.6-10.3); Carbon Dioxide 28.0 mmol/L (21-32); Chloride 102.0 mmol/L (98-107); Creatinine Clr Calc Pharmacy 59.9 ml/min; Globulin 3.4 gm/dl (2.5-4.0); Glucose 150.0 mg/dl (70-99(Fasting)); Lipase 39.0 U/L (11-82); Potassium 3.7 mmol/L (3.5-5.1); Sodium 137.0 mmol/L (136-145); Total Protein 7.8 gm/dl (6.0-8.3)
[2024-12-18 13:20] LABS: INR 0.9 (0.9-1.1); Prothrombin Time 10.3 Seconds (9.0-12.0)
--- NOTE | 2024-12-18 13:41 | XRay Report ---
XR hip BRIAN 2v w pelvis CLINICAL HISTORY: L hip pain s/p fall COMPARISON STUDY: CT of the abdomen and pelvis August 02, 2023. Left hip radiographs October 09, 2024. FINDINGS: Sacroiliac joints and symphysis pubis are intact. No right hip fracture is present. There i s an acute impacted mildly displaced intertrochanteric fracture of the left femur which extends to th e base of the femoral neck. Severe left hip osteoarthritis is noted. IMPRESSION: 1. Acute impacted mildly displaced intertrochanteric fracture of the left femur which extends to the base of the femoral neck. 2. Severe left hip osteoarthritis. ACT 112: Negative or not required by law. Electronically signed by: Jimenez Huff M.D. 12/18/2024 1:39 PM
--- NOTE | 2024-12-18 15:08 | XRay Report ---
PORTABLE SUPINE AP CHEST RADIOGRAPH CLINICAL HISTORY: Preoperative evaluation. COMPARISON STUDY: Chest radiograph and chest CT January 19, 2024. FINDINGS: Left shoulder arthroplasty is incidentally noted. There is no pneumothorax or pleural effus ion. Cardiomediastinal silhouette is stable. There is no evidence for pulmonary edema. There is no co nsolidation. IMPRESSION: No acute cardiopulmonary findings. ACT 112: Negative or not required by law. Electronically signed by: Jimenez Huff M.D. 12/18/2024 3:07 PM
--- NOTE | 2024-12-18 15:11 | CT Scan Report ---
LEFT HIP CT WITHOUT CONTRAST CLINICAL HISTORY: Evaluate fracture, w/3D recon please. COMPARISON STUDY: Left hip radiographs performed earlier today. TECHNIQUE: Axial images of the left hip were obtained without IV contrast. Sagittal and coronal refor mats were viewed. A dose lowering technique was utilized adhering to the principles of ALARA. FINDINGS: There is an acute impacted mildly displaced comminuted intertrochanteric fracture of the le ft femur. Several bone fragments are present. Severe joint space narrowing of the left hip with subch ondral sclerosis and cystic change is present. There are no acute fractures within visualized portion s of the left hemipelvis. There is sigmoid diverticulosis with evidence for acute diverticulitis IMPRESSION: 1. Acute comminuted impacted mildly displaced intertrochanteric fracture of the left femur. 2. Severe left hip osteoarthritis. ACT 112: Negative or not required by law. Electronically signed by: Jimenez Huff M.D. 12/18/2024 3:09 PM
[2024-12-18 15:19] LABS: Appearance Urine Clear (Clear); Bacteria Urine Automated None Seen (None Seen); Cast Urine Automated 0-2 /lpf (0-2); Epithelial Cell Urine Auto 0-2 /hpf (0-2); Glucose Urine UA Negative (Negative); RBC Urine Automated >20 /hpf (0-2); WBC Urine Automated 0-5 /hpf (0-5)
--- NOTE | 2024-12-18 15:25 | History & Physical Report ---
Date of Service December 18, 2024 Assessment & Plan (1) Closed left hip fracture: Plan: Bedrest. Orthopedic consultation requested and pending. She will need surgical intervention which is pending. Pain control measures (2) Type 2 diabetes mellitus: Plan: ADA diet. Sliding scale coverage for now. (3) Hypertension: Plan: Stable. Continue losartan and amlodipine (4) Hypothyroidism: Plan: Stable. Continue current thyroid replacement (5) GERD (gastroesophageal reflux disease): Plan: Stable. Continue H2 janeen and PPI Plan She will need rehab placement at the time of discharge sometime next week. History of Present Illness Chief Complaint: Left hip pain Primary Care Provider: Ankur Love MD 69-year-old white female who suffered a mechanical fall stating she tripped and fell. There was no syncope. Unfortunately she suffered a left hip fracture. Orthopedic consultation has been requested and is pending. She will need surgical repair which probably will take place tomorrow, December 19. She denies palpitations chest pain shortness of breath or actual syncope. No fever no chills. She is admitted for further evaluation and treatment Allergies Allergy/AdvReac Type Severity Reaction Status Date / Time aspirin AdvReac Severe ESOPHAGEAL Verified 10/21/24 11:32 BLEED codeine AdvReac Intermediate GI Verified 10/21/24 11:32 SYMPTOMS, ALTERED MENTAL STATUS oxycodone [From Percocet] AdvReac Intermediate Vomiting, Verified 10/21/24 11:32 dizziness Home Medications Medication Instructions Recorded Confirmed Type acetaminophen 650 mg 1,300 mg PO Q12H 01/22/20 10/21/24 History tablet,extended release amoxicillin 500 mg tablet 2,000 mg PO UD PRN PRIOR TO DENTAL 07/05/21 10/21/24 History APPT. cetirizine 10 mg tablet (Zyrtec) 10 mg PO DAILY PRN Allergic 10/17/21 10/21/24 History Symptoms aluminum hydrox-magnesium carb 1 tab PO DAILY PRN .gas 03/27/23 10/21/24 History [Gaviscon Extra Strength] hydrochlorothiazide 25 mg tablet 25 mg PO QAM 08/01/23 10/21/24 History montelukast 10 mg tablet 10 mg PO QAM #100 tabs 11/06/23 10/21/24 Rx losartan 50 mg tablet 50 mg PO HS #90 tabs 01/03/24 10/21/24 Rx amlodipine 5 mg tablet 5 mg PO HS #90 tabs 06/24/24 10/21/24 Rx rosuvastatin 20 mg tablet 20 mg PO HS #90 tabs 06/24/24 10/21/24 Rx omalizumab 150 mg/mL subcutaneous 300 mg (2 mL) subcut .COMPLEX #2 mL 07/09/24 10/21/24 Rx syringe (Xolair) gabapentin 100 mg capsule 200 mg (2 x 100 mg) PO UD #540 caps 07/21/24 10/21/24 Rx Magic Mouthwash 300 mL mouthwash 5 ml mucous membrane Q4H PRN oral 08/11/24 10/21/24 Rx pain #300 mL sitagliptin phosphate 100 mg 100 mg PO QAM #90 tabs 08/17/24 10/21/24 Rx tablet (Januvia) multivitamin 1 tab PO QPM 08/27/24 10/21/24 History hydroxychloroquine 200 mg tablet 200 mg PO BID #180 tabs 08/31/24 10/21/24 Rx (Plaquenil) folic acid 1 mg tablet 3 mg (3 x 1 mg) PO HS #90 tabs 09/21/24 10/21/24 Rx calcium 2,000 mg PO 10/08/24 10/21/24 History cholecalciferol (vitamin D3) 25 25 mcg PO DAILY 10/08/24 10/21/24 History mcg (1,000 unit) capsule duloxetine 30 mg capsule,delayed 30 mg PO DAILY #30 caps 10/08/24 10/21/24 Rx release (Cymbalta) vitamin B complex 1 cap PO DAILY 10/08/24 10/21/24 History solifenacin 5 mg tablet (Vesicare) 5 mg PO QPM #90 tabs 10/13/24 10/21/24 Rx tramadol 50 mg tablet 50 mg PO DAILY PRN Pain #10 tabs 10/22/24 Rx levothyroxine 137 mcg tablet 137 mcg PO QAM #90 tabs 11/10/24 Rx (Synthroid) pantoprazole 40 mg tablet,delayed 40 mg PO BID #180 tabs 12/01/24 Rx release (Protonix) famotidine 40 mg tablet 40 mg PO BID #60 tabs 12/18/24 Rx Past Med/Surg History Problem List (Updated 12/18/24 @ 15:24 by Davey Peacock MD) Closed left hip fracture Visit for monitoring Xolair therapy Status post left partial knee replacement (~08/2023) Mixed stress and urge urinary incontinence History of colon polyps Osteoarthritis, knee Osteoarthritis of left hip Rib pain on left side Left lateral abdominal pain Current use of proton pump inhibitor Chronic idiopathic urticaria Asthma Status post replacement of left shoulder joint (~01/2020) Microscopic hematuria Right ureteral stone Osteoarthritis reason for plaquenil; denies RA, Follows with Dr. Mcdonald. Type 2 diabetes mellitus oral meds- well controlled- Hgb A1C 6.6 on 08/13/23 GERD (gastroesophageal reflux disease) well controlled and stable with medications Hyperlipidemia, unspecified Hypertension Hypothyroidism Rectocele (03/01/14) Medical History Encounter for pre-operative examination Elevated glucose Chest pain Chest pain Asymptomatic COVID-19 virus infection Obesity Encounter for pre-operative examination Toe fracture Subungual hematoma of toe Left wrist sprain Fall from slip, trip, or stumble Hypothyroidism Diabetes mellitus, type 2 Osteoarthritis Mixed stress and urge urinary incontinence Hypertension Hyperlipidemia History of colon polyps GERD (gastroesophageal reflux disease) History of chest pain History of kidney stones Hypertriglyceridemia Nausea and vomiting after administration of anesthetic agent Overactive bladder Environmental and seasonal allergies Chronic idiopathic urticaria History of COVID-19 Lumbar herniated disc Palpitations Surgical History History of left cataract extraction Status post replacement of left shoulder joint (01/2020) Status post left partial knee replacement (08/2023) History of colonoscopy History of open reduction and internal fixation (ORIF) procedure History of partial knee replacement Slow to wake up after anesthesia History of partial hysterectomy S/P skin biopsy H/O unilateral salpingectomy History of tonsillectomy and adenoidectomy History of surgical removal of pilonidal cyst Hx of oral surgery History of carpal tunnel surgery S/P laparoscopy S/P arthroscopy of knee S/P eye surgery History of cryosurgery Family History Father Hypertension Coronary arteriosclerosis Uncle Colorectal cancer Grandmother (Maternal) Ovarian cancer Breast cancer Aunt Ovarian cancer Breast cancer Sister Hyperlipidemia Hypertension Mother Osteoporosis Rheumatic heart disease Other No family history of adverse response to anesthesia Social History Smoking Status: Never smoker Second Hand Exposure: No; Do You Dip or Chew Tobacco: No; Hx Alcohol Use: Yes (rarely) Hx Substance Use: No Preferred Language: Indian Communication Ability: Effective Visual Impairment: No Limitations Hearing Ability: Normal Political Organizer Required: No Beliefs That Will Affect Care: None marital status: Current Living Situation: Spouse current occupational status: employed and retired Feels Safe at Home: Yes Childhood Exposure to Second-Hand Smoke: No Seatbelt Use: always Assistive Devices: Glasses Review of Systems 2 Review of Systems: Constitutionalno fever or chills. ENTno blurred vision, no double vision, no epistaxis, no sore throat Respiratoryno cough, no wheezing, no shortness of breath Cardiacno palpitations, no chest pain, no syncope Ruthann nausea, vomiting, diarrhea, melena, hematochezia GUno urinary retention, no urinary incontinence, no dysuria, no hematuria Musculoskeletalleft hip discomfort at rest and with movement. No muscle tenderness Skinno bruising, no rashes, no pruritus Neurono isolated weakness, no paresthesia, no weakness Psychno depression, no anxiety Physical Exam 2 Physical Exam: General-alert and oriented x3, no fever, no chills. Obese HEENT-head atraumatic and normocephalic, pupils equal and reactive to light, extraocular muscles intact Neck-no lymphadenopathy or thyromegaly, trachea midline Chest-clear to auscultation. No rales, wheezing or rhonchi Cardiac-regular rate and rhythm, normal S1 and S2 Abdomen-normal bowel sounds, no hepatosplenomegaly Extremities-left leg is slightly shortened. No significant peripheral edema. No cyanosis of either foot Neuro-cranial nerves II through XII intact, motor and sensory function within normal limits, strength symmetrical, no focal deficits Psych-normal affect, normal mood Results & Data Results & Data Vital Signs (Past 12 Hours) Vital Signs Temp Pulse Resp BP Pulse Ox O2 Del Method 12/18/24 14:49 98 Room Air 12/18/24 14:48 75 21 155/87 H 93 12/18/24 13:28 65 12/18/24 12:23 36.7 C 79 18 158/110 H 99 Room Air Laboratory Results 12/18/24 12:39 12/18/24 12:39 Code Status & VTE Plan Code Status Full code PG Care Time/CCT Total # of Minutes Spent Total Time Spent with Patient: Total time spent is greater than 50% in coordination of care (as documented) at patient's floor/unit and/or counseling patient: Coding Level of Care Code 41470 INT INP/OBS CARE 3/75MIN Diagnoses Closed left hip fracture S72.002A Type 2 diabetes mellitus without complication, without long-term current use of insulin E11.9 Diabetes mellitus exterminator termite insulin use: without exterminator termite use Diabetes mellitus complication status: without complication Hypertension I10 Hypothyroidism, unspecified type E03.9 Hypothyroidism type: unspecified GERD (gastroesophageal reflux disease) K21.9 (2) Type 2 diabetes mellitus Diabetes mellitus snf insulin use: without snf use Diabetes mellitus complication status: without complication Qualified Code(s): E11.9 - Type 2 diabetes mellitus without complications (4) Hypothyroidism Hypothyroidism type: unspecified Qualified Code(s): E03.9 - Hypothyroidism, unspecified
--- NOTE | 2024-12-18 15:44 | Orthopedic Consultation ---
Date of Service December 18, 2024 Assessment & Plan (1) Closed left hip fracture: * Case/imaging reviewed and discussed with Dr Seymour * Recommend or fixation of left intertrochanteric femur fracture * Plan for OR 12/19 * Bedrest/nonweightbearing preop * NPO midnight * Disposition: TBD * Pain control * Remainder care per primary team History of Present Illness Reason for Consultation: Left hip pain Requesting Physician: . .Patient is a 69y/o female with right hip pain. PMH including DM2, GERD, hyperlipidemia, HTN, hypothyroid, lumbar disc herniation. Presents to hospital with left hip pain after a fall. Per report patient was walking to her car when she lost balance and fell landing on her left side. Immediate left hip pain, unable to ambulate. EMS called and brought to ED for evaluation. Current workup including x-ray and CT left hip demonstrating intertrochanteric femur fracture, severe hip arthritis. Admitted to hospitalist team. Orthopedics consulted for management recommendations. At time of exam patient lying comfortably in bed, no acute distress. Endorses moderate pain of left hip at rest that increases with any attempted movements. Denies tingling or numbness of the left lower extremity. No assistive devices at baseline. Does have history of partial knee replacement and has used a walker in the past.. Allergies Allergy/AdvReac Type Severity Reaction Status Date / Time aspirin AdvReac Severe ESOPHAGEAL Verified 10/21/24 11:32 BLEED codeine AdvReac Intermediate GI Verified 10/21/24 11:32 SYMPTOMS, ALTERED MENTAL STATUS oxycodone [From Percocet] AdvReac Intermediate Vomiting, Verified 10/21/24 11:32 dizziness Home Medications Medication Instructions Recorded Confirmed Type acetaminophen 650 mg 1,300 mg PO Q12H 01/22/20 10/21/24 History tablet,extended release amoxicillin 500 mg tablet 2,000 mg PO UD PRN PRIOR TO DENTAL 07/05/21 10/21/24 History APPT. cetirizine 10 mg tablet (Zyrtec) 10 mg PO DAILY PRN Allergic 10/17/21 10/21/24 History Symptoms aluminum hydrox-magnesium carb 1 tab PO DAILY PRN .gas 03/27/23 10/21/24 History [Gaviscon Extra Strength] hydrochlorothiazide 25 mg tablet 25 mg PO QAM 08/01/23 10/21/24 History montelukast 10 mg tablet 10 mg PO QAM #100 tabs 11/06/23 10/21/24 Rx losartan 50 mg tablet 50 mg PO HS #90 tabs 01/03/24 10/21/24 Rx amlodipine 5 mg tablet 5 mg PO HS #90 tabs 06/24/24 10/21/24 Rx rosuvastatin 20 mg tablet 20 mg PO HS #90 tabs 06/24/24 10/21/24 Rx omalizumab 150 mg/mL subcutaneous 300 mg (2 mL) subcut .COMPLEX #2 mL 07/09/24 10/21/24 Rx syringe (Xolair) gabapentin 100 mg capsule 200 mg (2 x 100 mg) PO UD #540 caps 07/21/24 10/21/24 Rx Magic Mouthwash 300 mL mouthwash 5 ml mucous membrane Q4H PRN oral 08/11/24 10/21/24 Rx pain #300 mL sitagliptin phosphate 100 mg 100 mg PO QAM #90 tabs 08/17/24 10/21/24 Rx tablet (Januvia) multivitamin 1 tab PO QPM 08/27/24 10/21/24 History hydroxychloroquine 200 mg tablet 200 mg PO BID #180 tabs 08/31/24 10/21/24 Rx (Plaquenil) folic acid 1 mg tablet 3 mg (3 x 1 mg) PO HS #90 tabs 09/21/24 10/21/24 Rx calcium 2,000 mg PO 10/08/24 10/21/24 History cholecalciferol (vitamin D3) 25 25 mcg PO DAILY 10/08/24 10/21/24 History mcg (1,000 unit) capsule duloxetine 30 mg capsule,delayed 30 mg PO DAILY #30 caps 10/08/24 10/21/24 Rx release (Cymbalta) vitamin B complex 1 cap PO DAILY 10/08/24 10/21/24 History solifenacin 5 mg tablet (Vesicare) 5 mg PO QPM #90 tabs 10/13/24 10/21/24 Rx tramadol 50 mg tablet 50 mg PO DAILY PRN Pain #10 tabs 10/22/24 Rx levothyroxine 137 mcg tablet 137 mcg PO QAM #90 tabs 11/10/24 Rx (Synthroid) pantoprazole 40 mg tablet,delayed 40 mg PO BID #180 tabs 12/01/24 Rx release (Protonix) famotidine 40 mg tablet 40 mg PO BID #60 tabs 12/18/24 Rx Past Med/Surg History Problem List (Updated 12/18/24 @ 15:24 by Davey Peacock MD) Closed left hip fracture Visit for monitoring Xolair therapy Status post left partial knee replacement (~08/2023) Mixed stress and urge urinary incontinence History of colon polyps Osteoarthritis, knee Osteoarthritis of left hip Rib pain on left side Left lateral abdominal pain Current use of proton pump inhibitor Chronic idiopathic urticaria Asthma Status post replacement of left shoulder joint (~01/2020) Microscopic hematuria Right ureteral stone Osteoarthritis reason for plaquenil; denies RA, Follows with Dr. Mcdonald. Type 2 diabetes mellitus oral meds- well controlled- Hgb A1C 6.6 on 08/13/23 GERD (gastroesophageal reflux disease) well controlled and stable with medications Hyperlipidemia, unspecified Hypertension Hypothyroidism Rectocele (03/01/14) Medical History Encounter for pre-operative examination Elevated glucose Chest pain Chest pain Asymptomatic COVID-19 virus infection Obesity Encounter for pre-operative examination Toe fracture Subungual hematoma of toe Left wrist sprain Fall from slip, trip, or stumble Hypothyroidism Diabetes mellitus, type 2 Osteoarthritis Mixed stress and urge urinary incontinence Hypertension Hyperlipidemia History of colon polyps GERD (gastroesophageal reflux disease) History of chest pain History of kidney stones Hypertriglyceridemia Nausea and vomiting after administration of anesthetic agent Overactive bladder Environmental and seasonal allergies Chronic idiopathic urticaria History of COVID-19 Lumbar herniated disc Palpitations Surgical History History of left cataract extraction Status post replacement of left shoulder joint (01/2020) Status post left partial knee replacement (08/2023) History of colonoscopy History of open reduction and internal fixation (ORIF) procedure History of partial knee replacement Slow to wake up after anesthesia History of partial hysterectomy S/P skin biopsy H/O unilateral salpingectomy History of tonsillectomy and adenoidectomy History of surgical removal of pilonidal cyst Hx of oral surgery History of carpal tunnel surgery S/P laparoscopy S/P arthroscopy of knee S/P eye surgery History of cryosurgery Family History Father Hypertension Coronary arteriosclerosis Uncle Colorectal cancer Grandmother (Maternal) Ovarian cancer Breast cancer Aunt Ovarian cancer Breast cancer Sister Hyperlipidemia Hypertension Mother Osteoporosis Rheumatic heart disease Other No family history of adverse response to anesthesia Social History Smoking Status: Never smoker Second Hand Exposure: No; Do You Dip or Chew Tobacco: No; Hx Alcohol Use: Yes (rarely) Hx Substance Use: No Preferred Language: Turkmen Communication Ability: Effective Visual Impairment: No Limitations Hearing Ability: Normal Breast Surgeon Required: No Beliefs That Will Affect Care: None marital status: Current Living Situation: Spouse current occupational status: employed and retired Feels Safe at Home: Yes Childhood Exposure to Second-Hand Smoke: No Seatbelt Use: always Assistive Devices: Glasses Review of Systems All systems reviewed & are unremarkable except as noted in HPI & below. Physical Exam . * General: Alert and oriented, no acute distress * Constitutional: well-developed, well-nourished. * Respiratory: Normal respiratory effort, no distress * Gastrointestinal: No tenderness to palpation, no rigidity or guarding. * Skin: No rash or lesion. * Neurologic: Grossly normal * Musculoskeletal: Left lower extremity shortened and externally rotated. Otherwise no obvious deformity or overlying skin changes to the left lower extremity. TTP proximal thigh and lateral hip region. Otherwise no specific tenderness of the distal thigh, knee, lower leg, foot/ankle. Pain with logroll, otherwise ROM hip not assessed secondary to fracture. AROM foot/ankle intact. Sensation intact plantar/dorsal foot. Brisk capillary refill. Results & Data Results & Data Laboratory Results . 12/18/24 12/18/24 Unknown 12:39 WBC 7.22 RBC 4.70 Hgb 14.1 Hct 42.2 MCV 89.8 MCH 30.0 MCHC 33.4 RDW Std Deviation 43.0 RDW Coeff of Truong 13.0 Plt Count 285 MPV 9.6 Immature Gran % (Auto) 0.8 Neut % (Auto) 61.2 Lymph % (Auto) 27.1 Craven % (Auto) 7.9 Eos % (Auto) 2.4 Baso % (Auto) 0.6 Neut # (Auto) 4.42 Lymph # (Auto) 1.96 Craven # (Auto) 0.57 Eos # (Auto) 0.17 Baso # (Auto) 0.04 Immature Gran # (Auto) 0.06 PT 10.3 INR 0.9 Sodium 137 Potassium 3.7 Chloride 102 Carbon Dioxide 28 Anion Gap 7 BUN 21 Creatinine 0.90 Est Cr Clr Drug Dosing 59.9 eGFR 68.77 BUN/Creatinine Ratio 23.3 H Glucose 150 H Calcium 9.9 Total Bilirubin 0.6 AST 15 ALT 13 Alkaline Phosphatase 90 Total Protein 7.8 Albumin 4.4 Globulin 3.4 Albumin/Globulin Ratio 1.3 Lipase 39 Urine Color Yellow Urine Appearance Clear Urine pH 8.0 H Ur Specific Sterling 1.014 Urine Protein 1+ H Urine Glucose (UA) Negative Urine Ketones Negative Urine Blood 2+ H Urine Nitrite Negative Urine Bilirubin Negative Urine Urobilinogen Negative Ur Leukocyte Esterase Negative Urine WBC (Auto) 0-5 Urine RBC (Auto) >20 H U Hyaline Cast (Auto) 0-2 U Epithel Cells (Auto) 0-2 Urine Bacteria (Auto) None Seen Urine Comment Diagnostic Findings . Hip/Pelvis X-Ray 12/18/24 12:26 XR hip BRIAN 2v w pelvis CLINICAL HISTORY: L hip pain s/p fall COMPARISON STUDY: CT of the abdomen and pelvis August 02, 2023. Left hip radiographs October 09, 2024. FINDINGS: Sacroiliac joints and symphysis pubis are intact. No right hip fracture is present. There is an acute impacted mildly displaced intertrochanteric fracture of the left femur which extends to the base of the femoral neck. Severe left hip osteoarthritis is noted. IMPRESSION: 1. Acute impacted mildly displaced intertrochanteric fracture of the left femur which extends to the base of the femoral neck. 2. Severe left hip osteoarthritis. ACT 112: Negative or not required by law. Electronically signed by: Jimenez Huff M.D. 12/18/2024 1:39 PM Chest X-Ray 12/18/24 14:09 PORTABLE SUPINE AP CHEST RADIOGRAPH CLINICAL HISTORY: Preoperative evaluation. COMPARISON STUDY: Chest radiograph and chest CT January 19, 2024. FINDINGS: Left shoulder arthroplasty is incidentally noted. There is no pneumothorax or pleural effusion. Cardiomediastinal silhouette is stable. There is no evidence for pulmonary edema. There is no consolidation. IMPRESSION: No acute cardiopulmonary findings. ACT 112: Negative or not required by law. Electronically signed by: Jimenez Huff M.D. 12/18/2024 3:[address] 12/18/24 14:[address] WITHOUT CONTRAST CLINICAL HISTORY: Evaluate fracture, w/3D recon please. COMPARISON STUDY: Left hip radiographs performed earlier today. TECHNIQUE: Axial images of the left hip were obtained without IV contrast. Sagittal and coronal reformats were viewed. A dose lowering technique was utilized adhering to the principles of ALARA. FINDINGS: There is an acute impacted mildly displaced comminuted inter trochanteric fracture of the left femur. Several bone fragments are present. Severe joint space narrowing of the left hip with subchondral sclerosis and cystic change is present. There are no acute fractures within visualized portions of the left hemipelvis. There is sigmoid diverticulosis with evidence for acute diverticulitis IMPRESSION: 1. Acute comminuted impacted mildly displaced intertrochanteric fracture of the left femur. 2. Severe left hip osteoarthritis. ACT 112: Negative or not required by law. Electronically signed by: Jimenez Huff M.D. 12/18/2024 3:09 PM PG Care Time/CCT Total # of Minutes Spent Total Time Spent with Patient: Total time spent is greater than 50% in coordination of care (as documented) at patient's floor/unit and/or counseling patient: Coding [place] [address] IN/OBS CONSULT LVL 5,80M Patient Type Established History Problem Focused Exam Problem Focused Medical Decision Making High Complexity Diagnoses Closed left hip fracture S72.002A
[2024-12-18] MEDS ORDERED: GLUCAGON FOR INJ 1 MG VIAL SQ PRN (17:53)
[2024-12-18] MEDS ORDERED: GLUCOSE 40% GEL 15 GM TUBE PO PRN (17:53)
[2024-12-18] MEDS ORDERED: CARBOHYDRATES FOR HYPOGLYCEMIA PO PRN (17:53)
[2024-12-18] MEDS ORDERED: DEXTROSE 50% 50 ML SYRINGE IV PRN (17:53)
[2024-12-18] MEDS ORDERED: GLUCOSE 10 TAB/TUBE PO PRN (17:53)
[2024-12-18] MEDS: INSULIN ASPART PER UNIT CHARGE SC SCH (18:42)
[2024-12-18] MEDS: MULTIVITAMIN TAB PO SCH (20:20)
[2024-12-18] MEDS: FOLIC ACID 1 MG TAB PO SCH (20:20)
[2024-12-18] MEDS: OXYBUTYNIN CHLORIDE XL 5 MG TABCR PO SCH (20:20)
[2024-12-18] MEDS: LOSARTAN POTASSIUM 50 MG TAB PO SCH (20:20)
[2024-12-18] MEDS: HYDROXYCHLOROQUINE SULFATE 200 MG TAB PO SCH (20:20)
[2024-12-18] MEDS: ROSUVASTATIN CALCIUM 20 MG TAB PO SCH (20:20)
[2024-12-18] MEDS: FAMOTIDINE 20 MG TAB PO SCH (20:20)
[2024-12-18] MEDS: HEPARIN SOD 5,000 UNIT/0.5 ML VIAL SQ SCH (20:21)
--- NOTE | 2024-12-18 21:52 | Electrocardiogram Report ---
Test Reason : Blood Pressure : */* mmHG Vent. Rate : 82 BPM Atrial Rate : 82 BPM P-R Int : 186 ms QRS Dur : 92 ms QT Int : 450 ms P-R-T Axes : 56 2 49 degrees QTcB Int : 525 ms Sinus rhythm with Premature atrial complexes Nonspecific ST abnormality Abnormal ECG When compared with ECG of 19-Jan-2024 20:02, Premature atrial complexes are now Present T wave inversion no longer evident in Inferior leads Confirmed by Carlitos Cardoza ([id number]) on 12/18/2024 9:52:33 PM Referred By: REFERRED SELF Confirmed By: Carlitos Cardoza
[2024-12-19] MEDS: MoRPHine SULFATE 2 MG/ML CARP IV PRN (00:09)
[2024-12-19] MEDS: ONDANSETRON INJ 2 MG/ML 2 ML VIAL IV PRN (00:09)
[2024-12-19] MEDS: LEVOTHYROXINE SODIUM 137 MCG TABLET PO SCH (05:56)
[2024-12-19 06:43] LABS: Hematocrit (blood only) 38.7 % (37.0-47.0); Hemoglobin 13.2 g/dl (12.0-16.0); Immature Granulocytes # (auto) 0.06 K/uL (0.01-0.20); Immature Granulocytes % (auto) 0.5 %; Mean Corpuscular Hemoglobin 30.8 pg (25.0-34.0); Mean Corpuscular Volume 90.2 fL (80.0-100.0); Platelet Count 331 K/uL (130-400); RDW Standard Deviation 42.7 fL (36.4-46.3); Red Blood Count 4.29 M/uL (4.20-5.40); White Blood Count 11.72 K/ul (4.8-10.8)
[2024-12-19 07:08] LABS: Anion Gap 9.0 (3-11); Blood Urea Nitrogen 17.0 mg/dl (6-23); Calcium 9.5 mg/dl (8.6-10.3); Carbon Dioxide 27.0 mmol/L (21-32); Chloride 100.0 mmol/L (98-107); Creatinine Clr Calc Pharmacy 69.1 ml/min; Glucose 141.0 mg/dl (70-99(Fasting)); Potassium 3.8 mmol/L (3.5-5.1); Sodium 136.0 mmol/L (136-145)
[2024-12-19] MEDS: CHOLECALCIFEROL 25 MCG (1000 UNITS) TAB PO SCH (07:28)
[2024-12-19] MEDS: CALCIUM CARBONATE 1250MG TAB PO SCH (07:28)
[2024-12-19] MEDS: MONTELUKAST SODIUM 10 MG TABLET PO SCH (07:29)
[2024-12-19] MEDS: VITAMIN B COMPLEX TAB PO SCH (07:30)
--- NOTE | 2024-12-19 07:39 | Orthopedic Progress Note ---
Date of Service December 19, 2024 Assessment & Plan (1) Closed left hip fracture: Plan: 69-year-old female with a pre-existing hip arthritis with a left intertrochanteric hip fracture. It is a fairly high fracture and with her underlying hip arthritis I think she is probably best treated with a calcar placement total hip replacement. We discussed the nature of this and the patient is in agreement. Unfortunately we do not have that equipment here and we have to get that shipped in. Is being shipped in today. Plan: Equipment is being shipped in today and will be sterilized. The plan is tomorrow to do a cemented calcar replacement total hip replacement. The risks met this procedure explained. Informed consent was obtained. Will use aspirin for DVT prophylaxis postoperatively. Keep her n.p.o. after midnight tonight. Any orthopedic questions can be directed to me at [phone]. (2) Status post left partial knee replacement: Admission and Anticipated Discharge Date Admission Date: December 18, 2024 Subjective 69-year-old female admitted with left displaced intertrochanteric hip fracture with underlying hip arthritis. She is continues to have left hip pain only. Moderately uncomfortable. No new complaints. No chest pain or shortness of breath. Physical Exam 2 Physical Exam: Physical nation was a pleasant middle-age female. As she is lying in bed looks reasonably comfortable as long she does not move. Examination of the left leg reveals a to be shortened and slightly externally rotated. Minimal swelling. She can dorsiflex and plantarflex her foot appropriately. She is neurologically intact. Results & Data Vital Signs (Past 12 Hours) Vital Signs Temp Pulse Resp BP Pulse Ox O2 Del Method O2 Flow Rate 12/19/24 07:17 37.1 C 82 18 152/80 H 97 Nasal Cannula 2.0 12/18/24 20:15 36.8 C 90 18 151/84 H 95 Nasal Cannula 2 (1) Closed left hip fracture Encounter type: initial encounter Qualified Code(s): S72.002A - Fracture of unspecified part of neck of left femur, initial encounter for closed fracture
[2024-12-19] MEDS: SODIUM CHLORIDE 0.9% 1,000 ML IV SCH (12:25)
[2024-12-19] MEDS: HYDROmorphone INJ 1 MG/ML SYRINGE IV PRN (12:25)
--- NOTE | 2024-12-19 16:09 | Hospitalist Progress Note ---
Date of Service December 19, 2024 Assessment & Plan (1) Closed left hip fracture: Plan: Bedrest. Orthopedic consultation noted. Cemented calcar replacement will be performed tomorrow, December 20. Pain medication switched to Dilaudid for better control. (2) Type 2 diabetes mellitus: Plan: ADA diet. Sliding scale coverage for now. Glucose 141 this morning, December 19 (3) Hypertension: Plan: Stable. Continue losartan and amlodipine (4) Hypothyroidism: Plan: Stable. Continue current thyroid replacement (5) GERD (gastroesophageal reflux disease): Plan: Stable. Continue H2 janeen and PPI Plan She will need rehab placement at the time of discharge sometime this coming week. Admission and Anticipated Discharge Date Admission Date: December 18, 2024 Subjective Alert and oriented. She states that her pain is not well-controlled and she is not sleeping very well. Morphine switched over to Dilaudid. Orthopedic entry noted. A cemented calcar replacement is recommended and surgery has been delayed until tomorrow, December 20, while we await delivery of the appliance. She is not eating very much and her urine is concentrated. IV fluids have been started. Review of Systems 2 Review of Systems: Constitutionalno fever or chills. ENTno blurred vision, no double vision, no epistaxis, no sore throat Respiratoryno cough, no wheezing, no shortness of breath Cardiacno palpitations, no chest pain, no syncope Ruthann nausea, vomiting, diarrhea, melena, hematochezia GUno urinary retention, no urinary incontinence, no dysuria, no hematuria Musculoskeletalleft hip discomfort at rest and with movement. No muscle tenderness Skinno bruising, no rashes, no pruritus Neurono isolated weakness, no paresthesia, no weakness Psychno depression, no anxiety Physical Exam 2 Physical Exam: General-alert and oriented x3, no fever, no chills. Obese HEENT-head atraumatic and normocephalic, pupils equal and reactive to light, extraocular muscles intact Neck-no lymphadenopathy or thyromegaly, trachea midline Chest-clear to auscultation. No rales, wheezing or rhonchi Cardiac-regular rate and rhythm, normal S1 and S2 Abdomen-normal bowel sounds, no hepatosplenomegaly Extremities-left leg is slightly shortened. No significant peripheral edema. No cyanosis of either foot Neuro-cranial nerves II through XII intact, motor and sensory function within normal limits, strength symmetrical, no focal deficits Psych-normal affect, normal mood Results & Data Results & Data Vital Signs (Past 12 Hours) Vital Signs Temp Pulse Resp BP Pulse Ox O2 Del Method O2 Flow Rate 12/19/24 14:07 36.7 C 74 16 130/75 96 Nasal Cannula 2.0 12/19/24 07:35 Nasal Cannula 2 12/19/24 07:17 37.1 C 82 18 152/80 H 97 Nasal Cannula 2.0 Laboratory Results 12/19/24 05:33 12/19/24 05:33 PG Care Time/CCT Total # of Minutes Spent Total Time Spent with Patient: Total time spent is greater than 50% in coordination of care (as documented) at patient's floor/unit and/or counseling patient: Coding Level of Care Code 03684 SUB INP/OBS CARE 3/50MIN Diagnoses Closed left hip fracture S72.002A Encounter type: initial encounter Type 2 diabetes mellitus without complication, without long-term current use of insulin E11.9 Diabetes mellitus terminal operator insulin use: without terminal operator use Diabetes mellitus complication status: without complication Hypertension I10 Hypothyroidism, unspecified type E03.9 Hypothyroidism type: unspecified GERD (gastroesophageal reflux disease) K21.9 (1) Closed left hip fracture Encounter type: initial encounter Qualified Code(s): S72.002A - Fracture of unspecified part of neck of left femur, initial encounter for closed fracture (2) Type 2 diabetes mellitus Diabetes mellitus terminal operator insulin use: without mcfp use Diabetes mellitus complication status: without complication Qualified Code(s): E11.9 - Type 2 diabetes mellitus without complications (4) Hypothyroidism Hypothyroidism type: unspecified Qualified Code(s): E03.9 - Hypothyroidism, unspecified
[2024-12-20 06:11] LABS: Hematocrit (blood only) 37.8 % (37.0-47.0); Hemoglobin 12.9 g/dl (12.0-16.0); Immature Granulocytes # (auto) 0.07 K/uL (0.01-0.20); Immature Granulocytes % (auto) 0.6 %; Mean Corpuscular Hemoglobin 30.7 pg (25.0-34.0); Mean Corpuscular Volume 90.0 fL (80.0-100.0); Platelet Count 293 K/uL (130-400); RDW Standard Deviation 42.6 fL (36.4-46.3); Red Blood Count 4.20 M/uL (4.20-5.40); White Blood Count 11.55 K/ul (4.8-10.8)
[2024-12-20] MEDS: HYDROmorphone INJ 1 MG/ML SYRINGE IV STA (06:24)
[2024-12-20 06:34] LABS: Anion Gap 7.0 (3-11); Blood Urea Nitrogen 15.0 mg/dl (6-23); Calcium 9.3 mg/dl (8.6-10.3); Carbon Dioxide 28.0 mmol/L (21-32); Chloride 100.0 mmol/L (98-107); Creatinine Clr Calc Pharmacy 85.6 ml/min; Glucose 155.0 mg/dl (70-99(Fasting)); Potassium 3.9 mmol/L (3.5-5.1); Sodium 135.0 mmol/L (136-145)
[2024-12-20] MEDS ORDERED: ATROPINE SULFATE 0.1 MG/ML 10ML SYR IV PRN (06:53)
[2024-12-20] MEDS ORDERED: ONDANSETRON INJ 2 MG/ML 2 ML VIAL IV PRN (06:53)
--- NOTE | 2024-12-20 06:53 | Anesthesiology Consultation ---
Date of Service December 20, 2024 Assessment & Plan Chart Review Chart Review: Acceptable Risk for Surgery and Patient NOT seen in Pre Admission Testing Consults Requested none History Surgery Operation Date: 12/20/24 11:00 Proposed Procedures p Left Long Troch Nail - Delbert Seymour MD Height/Weight Height: 5 ft 2 in Weight: 88 kg Allergies Allergy/AdvReac Type Severity Reaction Status Date / Time aspirin AdvReac Severe ESOPHAGEAL Verified 12/18/24 15:44 BLEED codeine AdvReac Intermediate GI Verified 12/18/24 15:44 SYMPTOMS, ALTERED MENTAL STATUS oxycodone [From Percocet] AdvReac Intermediate Vomiting, Verified 12/18/24 15:44 dizziness Medications Home Medications Medication Instructions Recorded Confirmed Last Taken acetaminophen 650 mg 1,300 mg PO Q12H 01/22/20 12/18/24 12/18/24 08:00 tablet,extended release amoxicillin 500 mg tablet 2,000 mg PO UD PRN PRIOR TO DENTAL 07/05/21 12/18/24 Unknown APPT. cetirizine 10 mg tablet (Zyrtec) 10 mg PO DAILY PRN Allergic 10/17/21 12/18/24 09/12/23 21:00 Symptoms hydrochlorothiazide 25 mg tablet 25 mg PO QAM PRN Fluid Retention 08/01/23 12/18/24 Unknown montelukast 10 mg tablet 10 mg PO QAM #100 tabs 11/06/23 12/18/24 12/18/24 losartan 50 mg tablet 50 mg PO HS #90 tabs 01/03/24 12/18/24 12/17/24 amlodipine 5 mg tablet 5 mg PO HS #90 tabs 06/24/24 12/18/24 12/17/24 rosuvastatin 20 mg tablet 20 mg PO HS #90 tabs 06/24/24 12/18/24 09/01/24 omalizumab 150 mg/mL subcutaneous 300 mg (2 mL) subcut .COMPLEX #2 mL 07/09/24 12/18/24 08/24/24 syringe (Xolair) gabapentin 100 mg capsule 200 mg (2 x 100 mg) PO UD #540 caps 07/21/24 12/18/24 12/18/24 08:00 Magic Mouthwash 300 mL mouthwash 5 ml mucous membrane Q4H PRN oral 08/11/24 12/18/24 Unknown pain #300 mL sitagliptin phosphate 100 mg 100 mg PO QAM #90 tabs 08/17/24 12/18/24 12/18/24 tablet (Januvia) multivitamin 1 tab PO QPM 08/27/24 12/18/24 12/17/24 hydroxychloroquine 200 mg tablet 200 mg PO BID #180 tabs 08/31/24 12/18/24 12/18/24 08:00 (Plaquenil) folic acid 1 mg tablet 3 mg (3 x 1 mg) PO HS #90 tabs 09/21/24 12/18/24 12/17/24 cholecalciferol (vitamin D3) 25 25 mcg PO DAILY 10/08/24 12/18/24 12/18/24 mcg (1,000 unit) capsule vitamin B complex 1 cap PO DAILY 10/08/24 12/18/24 12/18/24 solifenacin 5 mg tablet (Vesicare) 5 mg PO QPM #90 tabs 10/13/24 12/18/24 Unknown tramadol 50 mg tablet 50 mg PO DAILY PRN Pain #10 tabs 10/22/24 12/18/24 Unknown levothyroxine 137 mcg tablet 137 mcg PO QAM #90 tabs 11/10/24 12/18/24 12/18/24 (Synthroid) pantoprazole 40 mg tablet,delayed 40 mg PO BID #180 tabs 12/01/24 12/18/24 12/18/24 08:00 release (Protonix) aluminum hydrox-magnesium carb 160 1 tab PO DAILY PRN GAS DISCOMFORT 12/18/24 12/18/24 Unknown mg-105 mg chewable tablet (Gaviscon Extra Strength) calcium carbonate 1,000 mg PO BID 12/18/24 12/18/24 12/18/24 08:00 duloxetine 30 mg capsule,delayed 30 mg PO DAILY 12/18/24 12/18/24 12/18/24 release famotidine 40 mg tablet 40 mg PO BID #60 tabs 12/18/24 12/18/24 12/18/24 08:00 Active Medications Generic Name Dose Route Start Last Admin Trade Name Freq PRN Reason Stop Dose Admin Amlodipine Besylate 5 mg 12/18/24 21:00 12/19/24 20:38 Amlodipine Besylate 5 Mg Tab PO 01/17/25 20:59 5 mg HS KAILEE Administration Calcium Carbonate 1 tab 12/19/24 09:00 12/19/24 07:28 Calcium Carbonate 1250mg Tab PO 01/18/25 08:59 1 tab DAILY KAILEE Administration Duloxetine HCl 30 mg 12/19/24 09:00 12/19/24 07:29 Duloxetine Hcl 30 Mg Cap PO 01/18/25 08:59 30 mg DAILY KAILEE Administration Famotidine 40 mg 12/18/24 21:00 12/19/24 20:39 Famotidine 20 Mg Tab PO 01/17/25 20:59 40 mg BID KAILEE Administration Folic Acid 3 mg 12/18/24 21:00 12/19/24 20:38 Folic Acid 1 Mg Tab PO 01/17/25 20:59 3 mg HS KAILEE Administration Heparin Sodium (Porcine) 5,000 units 12/18/24 21:00 12/19/24 20:39 Heparin Sod 5,000 Unit/0.5 Ml Vial SQ 01/17/25 20:59 5,000 units Q12 KAILEE Administration Hydromorphone HCl 1 mg 12/19/24 12:16 12/20/24 04:16 Hydromorphone Inj 1 Mg/Ml Syringe IV 01/02/25 12:15 1 mg Q4H PRN Administration Pain Hydroxychloroquine Sulfate 200 mg 12/18/24 21:00 12/19/24 20:38 Hydroxychloroquine Sulfate 200 Mg Tab PO 01/17/25 20:59 200 mg BID KAILEE Administration Sodium Chloride 1,000 mls @ 80 mls/hr 12/19/24 12:30 12/20/24 01:24 Nss IV 12/22/24 12:29 80 mls/hr .[id number] KAILEE Administration Insulin Aspart 0 units 12/18/24 17:53 12/20/24 05:56 Insulin Aspart Per Unit Charge SC 01/17/25 17:52 Not Given ACHS KAILEE Levothyroxine Sodium 137 mcg 12/19/24 06:30 12/20/24 06:20 Levothyroxine Sodium 137 Mcg Tablet PO 01/18/25 06:29 137 mcg DAILYBB KAILEE Administration Losartan Potassium 50 mg 12/18/24 21:00 12/19/24 20:39 Losartan Potassium 50 Mg Tab PO 01/17/25 20:59 50 mg HS KAILEE Administration Montelukast Sodium 10 mg 12/19/24 09:00 12/19/24 07:29 Montelukast Sodium 10 Mg Tablet PO 01/18/25 08:59 10 mg QAM KAILEE Administration Multivitamins 1 tab 12/18/24 21:00 12/19/24 20:38 Multivitamin Tab PO 01/17/25 20:59 1 tab QPM KAILEE Administration Ondansetron HCl 4 mg 12/18/24 17:53 12/19/24 00:09 Ondansetron Inj 2 Mg/Ml 2 Ml Vial IV 01/17/25 17:52 4 mg Q4H PRN Administration Nausea Oxybutynin Chloride 5 mg 12/18/24 21:00 12/19/24 20:38 Oxybutynin Chloride Xl 5 Mg Tabcr PO 01/17/25 20:59 5 mg QPM KAILEE Administration Pantoprazole Sodium 40 mg 12/18/24 21:00 12/19/24 20:38 Pantoprazole 40 Mg Tab PO 01/17/25 20:59 40 mg BID KAILEE Administration Rosuvastatin Calcium 20 mg 12/18/24 21:00 12/19/24 20:38 Rosuvastatin Calcium 20 Mg Tab PO 01/17/25 20:59 20 mg HS KAILEE Administration Vitamin B Complex 1 tab 12/19/24 09:00 12/19/24 07:30 Vitamin B Complex Tab PO 01/18/25 08:59 1 tab DAILY KAILEE Administration Vitamin D 25 mcg 12/19/24 09:00 12/19/24 07:28 Cholecalciferol 25 Mcg (1000 Units) Tab PO 01/18/25 08:59 25 mcg DAILY KAILEE Administration Past Medical History Medical History Encounter for pre-operative examination Elevated glucose Chest pain Chest pain Asymptomatic COVID-19 virus infection Obesity Encounter for pre-operative examination Toe fracture Subungual hematoma of toe Left wrist sprain Fall from slip, trip, or stumble Hypothyroidism Diabetes mellitus, type 2 Osteoarthritis Mixed stress and urge urinary incontinence Hypertension Hyperlipidemia History of colon polyps GERD (gastroesophageal reflux disease) History of chest pain History of kidney stones Hypertriglyceridemia Nausea and vomiting after administration of anesthetic agent Overactive bladder Environmental and seasonal allergies Chronic idiopathic urticaria History of COVID-19 Lumbar herniated disc Palpitations Past Family History Family History Father Hypertension Coronary arteriosclerosis Uncle Colorectal cancer Grandmother (Maternal) Ovarian cancer Breast cancer Aunt Ovarian cancer Breast cancer Sister Hyperlipidemia Hypertension Mother Osteoporosis Rheumatic heart disease Other No family history of adverse response to anesthesia Past Surgical History Surgical History History of left cataract extraction Status post replacement of left shoulder joint (01/2020) Status post left partial knee replacement (08/2023) History of colonoscopy History of open reduction and internal fixation (ORIF) procedure History of partial knee replacement Slow to wake up after anesthesia History of partial hysterectomy S/P skin biopsy H/O unilateral salpingectomy History of tonsillectomy and adenoidectomy History of surgical removal of pilonidal cyst Hx of oral surgery History of carpal tunnel surgery S/P laparoscopy S/P arthroscopy of knee S/P eye surgery History of cryosurgery Social History Smoking Status: Never smoker Do You Dip or Chew Tobacco: No Hx Alcohol Use: Yes alcohol intake frequency: holidays/special occasions only Hx Substance Use: No substance use type: does not use Physical Exam Vital Signs Last Vital Signs Temp 36.9 C 12/19/24 19:19 Pulse 90 12/20/24 06:19 Resp 18 12/20/24 06:19 BP 164/94 H 12/20/24 06:19 Pulse Ox 95 12/20/24 06:19 O2 Del Method Room Air 12/20/24 06:19 O2 Flow Rate 2.0 12/19/24 14:07 Testing Laboratory Results 12/20/24 05:35 12/20/24 05:35 PT 10.3 Seconds (9.0-12.0) 12/18/24 12:39 INR 0.9 (0.9-1.1) 12/18/24 12:39 Urine Color Yellow 12/18/24 Unknown Urine Appearance Clear (Clear) 12/18/24 Unknown Urine pH 8.0 (4.5-7.5) H 12/18/24 Unknown Ur Specific [place] 1.014 (1.000-1.030) 12/18/24 Unknown Urine Protein 1+ (Negative) H 12/18/24 Unknown Urine Glucose (UA) Negative (Negative) 12/18/24 Unknown Urine Ketones Negative (Negative) 12/18/24 Unknown Urine Nitrite Negative (Negative) 12/18/24 Unknown Ur Leukocyte Esterase Negative (Negative) 12/18/24 Unknown Urine WBC (Auto) 0-5 /hpf (0-5) 12/18/24 Unknown Urine RBC (Auto) >20 /hpf (0-2) H 12/18/24 Unknown U Hyaline Cast (Auto) 0-2 /lpf (0-2) 12/18/24 Unknown U Epithel Cells (Auto) 0-2 /hpf (0-2) 12/18/24 Unknown Urine Bacteria (Auto) None Seen (None Seen) 12/18/24 Unknown Blood Type O Positive 12/18/24 17:28 Antibody Screen NEGATIVE 12/18/24 17:28 12/20/24 12/19/24 05:43 20:15 POC Glucose 159 H 130 H
[2024-12-20] MEDS ORDERED: ROCURONIUM BROMIDE 10 MG/ML 5 ML VIAL IV ONE ×2 (07:06→08:27)
[2024-12-20] MEDS ORDERED: DEXAMETHASONE SOD INJ 4 MG/ML VIAL ONE (07:06)
[2024-12-20] MEDS ORDERED: MIDAZOLAM HCL 1 MG/ML 2ML VIAL ONE (07:06)
[2024-12-20] MEDS ORDERED: SUGAMMADEX SODIUM 200 MG/2 ML VIAL IV ONE (07:06)
[2024-12-20] MEDS ORDERED: ONDANSETRON INJ 2 MG/ML 2 ML VIAL ONE (07:06)
[2024-12-20] MEDS ORDERED: PROPOFOL IV EMULSION 10 MG/ML 20 ML VIAL IV ONE (07:06)
--- NOTE | 2024-12-20 07:07 | History & Physical Bridge Note ---
Date of Service December 20, 2024 History & Physical Bridge Note I have examined the patient, reviewed the History & Physical and in the interval since the performance of the History & Physical I have noted the following changes of clinical significance: no changes noted
[2024-12-20] MEDS ORDERED: ceFAZolin 330 MG/ML 1 GM VIAL ONE (07:31)
[2024-12-20] MEDS: TRANEXAMIC ACID / 0.7% NACL 1000MG/100ML BAG IV ONE (07:35)
[2024-12-20] MEDS: BUPIVACAINE/EPINEPHRINE 0.5% MPF 1:200,000 30 ML VIAL ONE (08:27)
[2024-12-20] MEDS ORDERED: ePHEDrine sulfate 50 MG/5 ML SYR ONE (08:58)
[2024-12-20] MEDS ORDERED: GLUCOSE 40% GEL 15 GM TUBE PO PRN (09:56)
[2024-12-20] MEDS ORDERED: CARBOHYDRATES FOR HYPOGLYCEMIA PO PRN (09:56)
[2024-12-20] MEDS ORDERED: GLUCAGON FOR INJ 1 MG VIAL SQ PRN (09:56)
[2024-12-20] MEDS ORDERED: GLUCOSE 10 TAB/TUBE PO PRN (09:56)
[2024-12-20] MEDS ORDERED: DEXTROSE 50% 50 ML SYRINGE IV PRN (09:56)
--- NOTE | 2024-12-20 09:58 | Operative Report ---
PG Post Operative Report Pre & Post Diagnosis Operation Date: 12/20/24 11:00 Pre-Op diagnosis: Left intertrochanteric hip fracture with underlying arthritis. Postoperative diagnosis: Left intertrochanteric hip fracture with underlying arthritis. I identified the patient and participated in the time-out.: Yes Procedure Operation Date: 12/20/24 11:00 Actual Procedures p Total calcar replacement total hip Arthroplasty Cemented(Left) with hip abductor repair- Delbert Seymour MD Surgeon Delbert Seymour MD Integration Project Manager Yuan Doty PA-C Estimated Blood Loss 200 Findings Consistent with Post-Op Diagnosis Specimens Left femoral head sent for pathology. Anesthesia Type General Complications none Disposition Accompanied Patient To Recovery: No Indications The patient is a 69-year-old female well-known to me from previous knee surgery. She has had multiple orthopedic operations in the past. Sustained a mechanical fall 2 days ago. Acute onset of pain. She has been having quite a bit hip pain before this due to her underlying arthritis. She was brought to emergency room where x-rays revealed a left intertrochanteric hip fracture. It was fairly proximal fracture. Considering her significant arthritis we elected proceed with a calcar replacement total hip arthroplasty. Description of Procedure Operative implants consists of: 1. DePuy [place] size 50 mm acetabular shell. 2. [place] hole smoking pipe coater. 3. 6.5 cancellous acetabular screws 1 of 35 mm in length and 1 to 20 mm in length. 4. DePuy dual mobility metal acetabular liner. 5. DePuy endurance calcar replacement femoral stem size 3 x 145 mm. 6. +4/22 mm metal articular ball with a 22 mm / 43 mm dual mobility liner. 7. 12 mm centralizer. 8. Small cement restrictor. The patient was taken to the operating, identified, placed on the operating table in the supine position. All contact areas were appropriately padded. IV antibiotics were provided along with a gram of TXA. General anesthetic was implemented. The patient was then placed in the right lateral decubitus position. An axillary roll was placed. Distal Birkett position was used for positioning. The left hip and leg were then scrubbed with Hibiclens and then prepped with ChloraPrep and then draped in the usual sterile fashion. A posterolateral approach to the left hip was then performed through a curvilinear incision centered over the greater trochanter. Sharp dissection was Through subcutaneous tissue down to the IT band gluteal fascia to the IT band gluteal fascia incised longitudinally in line with skin incision. The underlying greater bursa which was quite hemorrhagic was excised. We Bobo very carefully dissected off the posterior soft tissues off the posterior aspect of the proximal femur. I did release the gluteal sling. We had to release down below the lesser trochanter as the fracture went down to about mid trochanter level but no further. We then skeletonized the proximal femoral head neck and removed several bony fracture pieces along with the femoral head and the neck. The femur was retracted anteriorly. There was a small greater trochanter fracture posteriorly and superiorly which we left attached to the soft tissues. Attention then drawn the acetabulum. The acetabular labrum was excised. The pulmonary fat was excised. Sequential reaming the acetabular was then performed again with size 43 and progressing up to 49. I reamed a little bit with a 49 reamer and then placed a 50 mm Bozeman shell in about 4 degrees lateral opening and 20 degrees of anteversion. Was fixed with two 6.5 screws. A trial liner was placed. Attention drawn the femur. The proximal femur was entered with a cookie cutter followed by canal finder. We then reamed to a size 13. We then broached to a size 2. I could not get the 3 broach down but the trial implant fit quite easily. We then trialed the hip and considering everything the soft tissue tension a +5 are articular ball seem to be quite stable. We just trialed with a 32 mm head. We elected place a dual mobility implant into maximize her stability. We elected place these implants. NuPrep all trial implants were removed. An apex hole smoking pipe coater was placed. A metal dual mobility liner was then placed. A small cement restrictor was placed distally. A double batch [place] G cement was mixed. The canal was then injected in a calcar placement stem size three 545 mm was then placed in about 20 degrees of anteversion. Once the cement hardened a +4/22 mm articular ball with a dual mobility liner was then placed. Hip was located and once again found to be stable. Soft tissue tension seemed appropriate. Leg lengths seemed equal. Attention drawn toward closing. The wounds irrigated scope saps with pulsatile lavage solution. We did inject locally with 60 cc of half percent Marcaine with epinephrine. I then repaired the posterior superior trochanter back down to the proximal femur with a #5 Ethibond suture. I then repaired some of the soft tissues of the abductors with #2 Tycron suture. I then placed some #2 Tycron sutures in the posterior capsule and repaired to the posterior aspect of the hip through all holes in the proximal posterior femur. The gluteal sling was then repaired with #1 PDS suture. The IT band gluteal fascia was then closed with #1 PDS suture in running fashion. Subcutaneous tissue then closed with 2 layers of the deep layer #1 Vicryl suture and subcutaneous tissues with 2-0 Dexon suture in a buried interrupted fashion. Skin was then closed with skin sheri. Leg was then cleaned and dried and a sterile dressing with Xeroform, 4 fours, ABD pad and foam tape was applied. The patient then brought out of general esthesia and transferred to the recovery room in stable condition. Patient tolerated procedure well and there are no complications. Yuan Doty, my physician real estate administrative assistant, was present for the entire procedure. His assistance was required for proper patient positioning, prepping and draping, surgical exposure, retraction, perform the technical details of the operation, placement of the implants, closure of the incision site, placement of postoperative sterile bandage. I attest to the content of the Intraoperative Record and any orders documented therein. Any exceptions are noted below.
[2024-12-20] MEDS ORDERED: ALUMINUM/MAGNESIUM/SIMETH (MAALOX MAX) 30 ML UDC PO PRN (10:13)
--- NOTE | 2024-12-20 10:24 | XRay Report ---
XR hip LT min 2V CLINICAL HISTORY: Post-Operative implant position COMPARISON: 12/18/2024 FINDINGS: Left hip prosthesis shows no hardware complication. There is expected soft tissue gas. Ski n sheri are present. IMPRESSION: Unremarkable postoperative exam. ACT 112: Negative or not required by law. Electronically signed by: Rusty Michaels M.D. 12/20/2024 10:22 AM
--- NOTE | 2024-12-20 11:37 | Anesthesiology Progress Note ---
Date of Service December 20, 2024 Anesthesia Post Procedure Vital Signs Vital Signs: Temp Pulse Pulse Resp BP Pulse Ox O2 Del Method 12/20/24 11:10 37.1 C 85 16 142/80 H 97 Nasal Cannula 12/20/24 10:50 95 H 17 128/75 95 Nasal Cannula 12/20/24 10:35 96 H 20 133/81 96 Nasal Cannula 12/20/24 10:25 36.8 C 95 H 17 133/75 95 Nasal Cannula 12/20/24 10:15 98 H 17 124/68 94 Nasal Cannula 12/20/24 10:05 89 17 133/66 96 Oxymask 12/20/24 09:55 98 H 14 123/67 99 Oxymask 12/20/24 09:44 36.3 C L 100 H 18 119/75 96 Oxymask 12/20/24 06:19 90 18 164/94 H 95 Room Air 12/19/24 19:19 36.9 C 75 16 136/73 93 Room Air 12/19/24 14:07 36.7 C 74 16 130/75 96 Nasal Cannula O2 Flow Rate 12/20/24 11:10 3 12/20/24 10:50 3 12/20/24 10:35 3 12/20/24 10:25 3 12/20/24 10:15 3 12/20/24 10:05 4 12/20/24 09:55 8 12/20/24 09:44 8 12/20/24 06:19 12/19/24 19:19 12/19/24 14:07 2.0 Pain Intensity Left Hip: Pain Intensity: 4 Transfer of Care Handoff Completed per policy Notes Mental Status: alert / awake / arousable Patient Amnestic to Procedure: Yes Nausea / Vomiting: adequately controlled Pain: adequately controlled Airway Patency, RR, SpO2: stable & adequate BP & HR: stable & adequate Hydration State: stable & adequate Anesthetic Complications: no major complications apparent and Pt Satisfied with anesthetic care
--- NOTE | 2024-12-20 18:55 | Hospitalist Progress Note ---
Date of Service December 20, 2024 Assessment & Plan (1) Closed left hip fracture: Plan: She underwent total left hip arthroplasty with calcar replacement and left hip abductor repair. Left leg is currently immobilized. Orthopedic consultation and recommendations appreciated. She is currently mildly lethargic postanesthesia (2) Fall: Plan: Mechanical, resulting in her left hip fracture. No syncope. Family states that her behavior has changed postoperatively and this is probably due to pain medication and anesthesia. As a precaution, head CT scan has been ordered and is pending. No evidence of head injury however at the time of her mechanical fall (3) Type 2 diabetes mellitus: Plan: ADA diet. Sliding scale coverage for now. Glucose 155 this morning, December 20 (4) Hypertension: Plan: Stable. Continue losartan and amlodipine (5) Hypothyroidism: Plan: Stable. Continue current thyroid replacement (6) GERD (gastroesophageal reflux disease): Plan: Stable. Continue H2 janeen and PPI Plan She will need rehab placement at the time of discharge sometime this coming week. Admission and Anticipated Discharge Date Admission Date: December 18, 2024 Subjective The patient was seen postoperatively after left total hip arthroplasty and left hip abductor repair. She is currently stable. I did speak to Dr. Seymour, orthopedic surgery, regarding the case postoperatively. There were no significant complications. The family is concerned about her behavior which is probably related to pain medication and anesthesia but head CT scan has been ordered as a precaution. She fell prior to this admission but did not have any apparent head injury at that time. Review of Systems 2 Review of Systems: Constitutionalno fever or chills. ENTno blurred vision, no double vision, no epistaxis, no sore throat Respiratoryno cough, no wheezing, no shortness of breath Cardiacno palpitations, no chest pain, no syncope Ruthann nausea, vomiting, diarrhea, melena, hematochezia GUno urinary retention, no urinary incontinence, no dysuria, no hematuria Musculoskeletalleft leg has been immobilized. Surgical site has dry dressings in place. Skinno bruising, no rashes, no pruritus Neurono isolated weakness, no paresthesia, no weakness Psychno depression, no anxiety Physical Exam 2 Physical Exam: General-slightly lethargic postanesthesia. No fever. Obese HEENT-head atraumatic and normocephalic, pupils equal and reactive to light, extraocular muscles intact Neck-no lymphadenopathy or thyromegaly, trachea midline Chest-clear to auscultation. No rales, wheezing or rhonchi Cardiac-regular rate and rhythm, normal S1 and S2 Abdomen-normal bowel sounds, no hepatosplenomegaly Extremities-left leg has been immobilized. Dressing intact at the left hip surgical site. No significant peripheral edema. No cyanosis of either foot Neuro-cranial nerves II through XII intact, motor and sensory function within normal limits, strength symmetrical, no focal deficits Psych-somewhat lethargic postanesthesia. Cannot assess Results & Data Results & Data Vital Signs (Past 12 Hours) Vital Signs Temp Pulse Pulse Resp BP Pulse Ox O2 Del Method 12/20/24 14:13 36.5 C 93 H 18 114/72 94 Nasal Cannula 12/20/24 13:12 106 H 18 112/70 94 Nasal Cannula 12/20/24 12:08 36.4 C L 92 H 15 162/88 H 94 Nasal Cannula 12/20/24 11:52 95 H 16 145/88 H 93 Nasal Cannula 12/20/24 11:33 Nasal Cannula 12/20/24 11:10 37.1 C 85 16 142/80 H 97 Nasal Cannula 12/20/24 10:50 95 H 17 128/75 95 Nasal Cannula 12/20/24 10:35 96 H 20 133/81 96 Nasal Cannula 12/20/24 10:25 36.8 C 95 H 17 133/75 95 Nasal Cannula 12/20/24 10:15 98 H 17 124/68 94 Nasal Cannula 12/20/24 10:05 89 17 133/66 96 Oxymask 12/20/24 09:55 98 H 14 123/67 99 Oxymask 12/20/24 09:44 36.3 C L 100 H 18 119/75 96 Oxymask O2 Flow Rate 12/20/24 14:13 2.0 12/20/24 13:12 2.0 12/20/24 12:08 3 12/20/24 11:52 2.0 12/20/24 11:33 3 12/20/24 11:10 3 12/20/24 10:50 3 12/20/24 10:35 3 12/20/24 10:25 3 12/20/24 10:15 3 12/20/24 10:05 4 12/20/24 09:55 8 12/20/24 09:44 8 Laboratory Results 12/20/24 05:35 12/20/24 05:35 PG Care Time/CCT Total # of Minutes Spent Total Time Spent with Patient: Total time spent is greater than 50% in coordination of care (as documented) at patient's floor/unit and/or counseling patient: Coding Level of Care Code 61464 SUB INP/OBS CARE 3/50MIN Diagnoses Closed left hip fracture S72.002A Encounter type: initial encounter Fall W19.XXXA Type 2 diabetes mellitus without complication, without long-term current use of insulin E11.9 Diabetes mellitus prison insulin use: without prison use Diabetes mellitus complication status: without complication Hypertension I10 Hypothyroidism, unspecified type E03.9 Hypothyroidism type: unspecified GERD (gastroesophageal reflux disease) K21.9 (1) Closed left hip fracture Encounter type: initial encounter Qualified Code(s): S72.002A - Fracture of unspecified part of neck of left femur, initial encounter for closed fracture (3) Type 2 diabetes mellitus 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
--- NOTE | 2024-12-20 19:37 | CT Scan Report ---
CT head without contrast History: Behavioral changes Comparison: 01/19/2024 Technique: Using multidetector thin collimation helical acquisition technique, axial, coronal and sagittal CT images from the skull base to the vertex were obtained without intravenous contrast. Dose reduction techniques were achieved by using automatic exposure control and/or adjustment of mA and/or kV according to patient size and/or use of iterative reconstruction technique. Findings: No intracranial hemorrhage, mass-effect, or midline shift. The ventricles are proportionate to the cerebral sulci. The valencia to white matter differentiation of the cerebral hemispheres is preserved. The basal cisterns are patent. There are 2 punctate calcifications in the right parietal lobe white matter that are unchanged. The visualized paranasal sinuses are clear. Mastoid air cells are clear. Impression: No acute intracranial pathology. Electronically signed by Lev Ferguson 12-20-2024 7:36 PM
[2024-12-20] MEDS: ASPIRIN 81 MG ECTAB PO SCH (21:25)
[2024-12-20] MEDS: CALCIUM CARBONATE 1250MG TAB PO SCH (21:25)
[2024-12-20] MEDS: ACETAMINOPHEN 500 MG TAB PO PRN (23:09)
--- NOTE | 2024-12-21 07:50 | Orthopedic Progress Note ---
Date of Service December 21, 2024 Assessment & Plan (1) Closed left hip fracture: Plan: 69-year-old female postop day 1 from a left calcar replacement cemented total hip arthroplasty for an intertrochanteric fracture with underlying hip arthritis. She is doing pretty well this morning. Appears stable. Hips located. She is neurologically intact. Plan: 1. DVT prophylaxis including thigh-high teds, SCDs, aspirin twice a day. 2. PT/OT. Weight-bear as tolerated. Left total hip protocol. No active hip abduction for the next 6 weeks. 3. Pain control. Doing okay with current pain regimen. 4. Medical management as per the medicine service. 5. Disposition. She is orthopedically okay for discharge anytime medically stable. She is hoping to go home but her family is a rehab or halfway facility. Will see how she does in therapy today. Admission and Anticipated Discharge Date Admission Date: December 18, 2024 Subjective 69-year-old female postop day 1 from a left calcar placement total hip arthroplasty for fracture. She is doing okay. Some pain but manageable. It seems to be somewhat improved. No new complaints. No chest pain or shortness of breath. Not feeling dizzy or lightheaded. Physical Exam Physical Exam: Physical relation was a pleasant middle-aged female. She is lying bed looks pretty comfortable this morning. Examination of left leg reveals leg to be well aligned. Dressings clean dry and intact. Thigh is soft and supple. She is neurologically intact. Results & Data Vital Signs (Past 12 Hours) Vital Signs Temp Pulse Resp BP Pulse Ox O2 Del Method O2 Flow Rate 12/21/24 07:25 36.9 C 85 16 121/71 97 Room Air 12/21/24 03:43 36.6 C 88 18 125/76 93 Room Air 12/20/24 22:45 36.6 C 91 H 20 133/75 94 Room Air 12/20/24 21:30 Nasal Cannula 3 Laboratory Results Labs are pending. (1) Closed left hip fracture Encounter type: initial encounter Qualified Code(s): S72.002A - Fracture of unspecified part of neck of left femur, initial encounter for closed fracture
[2024-12-21 07:54] LABS: Hematocrit (blood only) 31.1 % (37.0-47.0); Hemoglobin 10.6 g/dl (12.0-16.0); Immature Granulocytes # (auto) 0.04 K/uL (0.01-0.20); Immature Granulocytes % (auto) 0.4 %; Mean Corpuscular Hemoglobin 30.9 pg (25.0-34.0); Mean Corpuscular Volume 90.7 fL (80.0-100.0); Platelet Count 255 K/uL (130-400); RDW Standard Deviation 43.0 fL (36.4-46.3); Red Blood Count 3.43 M/uL (4.20-5.40); White Blood Count 9.49 K/ul (4.8-10.8)
[2024-12-21 08:10] LABS: Anion Gap 5.0 (3-11); Blood Urea Nitrogen 12.0 mg/dl (6-23); Calcium 8.6 mg/dl (8.6-10.3); Carbon Dioxide 29.0 mmol/L (21-32); Chloride 100.0 mmol/L (98-107); Creatinine Clr Calc Pharmacy 87.0 ml/min; Glucose 161.0 mg/dl (70-99(Fasting)); Potassium 3.7 mmol/L (3.5-5.1); Sodium 134.0 mmol/L (136-145)
[2024-12-21 10:23] LABS: Prealbumin 13.0 mg/dl (20-40)
--- NOTE | 2024-12-21 11:03 | Hospitalist Progress Note ---
"Date of Service December 21, 2024 Assessment & Plan (1) Closed left hip fracture: (2) Fall: (3) Vitamin D deficiency: (4) Type 2 diabetes mellitus: (5) Hypertension: (6) Hypothyroidism: (7) GERD (gastroesophageal reflux disease): Plan 69-year-old female admitted after mechanical fall resulted in a closed left hip fracture. She underwent total left hip arthroplasty with calcar replacement and left hip abductor repair on 12/[address] Head [address] completed postoperatively per family's request for altered mental status; imaging without acute intracranial pathology, AMS resolved and was likely secondary to anesthesia and pain medications. #Closed left hip fracture | S/p surgical repair | vitamin D deficiency - Acute blood loss anemia secondary to surgical intervention with hgb 10.6 - stable, monitor with AM labs - Weight-bear as tolerated. Left total hip protocol. No active hip abduction for the next 6 weeks - Continue thigh-high teds, SCDs, aspirin twice daily as DVT prophylaxis - Vit D low at 22.4 - continue cholecalciferol 25 mcg daily - Pain regimen: Tylenol 1000 mg Q8h PRN mild pain, tramadol 50 mg Q4h PRN mod- severe pain, gabapentin 100 mg QAM and 200 mg QPM - PT/OT recommending acute rehab #T2DM - well-controlled, A1c 5.9% in September 2024. Continue SSI #Hypertension well-controlled, continue losartan and amlodipine #Hypothyroidism TSH WNL in September 2024, continue Synthroid #GERD - well-controlled, continue H2 janeen and PPI VTE PPx: Thigh-high teds, SCDs, aspirin twice daily Dispo: Awaiting rehab placement, referrals pending Discontinued Dilaudid Started gabapentin and tramadol Admission and Anticipated Discharge Date Admission Date: December 18, 2024 Supervising Physician Co-Signing Physician Notes chart reviewed, case d/w S Micaela MOYA, as above. Subjective Patient seen and evaluated in bedside chair. She reports feeling much better today. She does have some discomfort in her left hip but states this is t olerable. She just worked with therapy and reports she did fairly well. She does not have much of an appetite now, but denies any nausea or abdominal pain. She is passing gas. No BM yet. She denies SOB, chest pain, headache. She did not have TEDs on during my encounter, will place them on now. No additional complaints or concerns at this time. Physical Exam Physical Exam: General: No acute distress, nondiaphoretic, well-developed, well-nourished. Skin: Left hip dressing clean dry intact. No significant peripheral edema. No rashes noted. Cardiac: Regular rate and rhythm without murmurs gallops or rubs. Pulm: Clear to auscultation bilaterally without wheezes, rales or rhonchi. Normal respiratory effort. 97% on room air. Abdominal: Soft, nontender, nondistended. Bowel sounds present. Neuro: A&O x3. No focal neurological deficits. MSK: Normal motor and sensory function in LE bilaterally. Results & Data Results & Data Vital Signs (Past 12 Hours) Vital Signs Temp Pulse Resp BP Pulse Ox O2 Del Method 12/21/24 07:25 98.4 F 85 16 121/71 97 Room Air 12/21/24 03:43 97.9 F 88 18 125/76 93 Room Air Laboratory Results Reviewed CBC with differential Reviewed BMP, chemistries PG Care Time/CCT Total # of Minutes Spent Total Time Spent with Patient: Total time spent is greater than 50% in coordination of care (as documented) at patient's floor/unit and/or counseling patient: Coding Level of Care Code 50203 SUB INP/OBS CARE 3/50MIN Diagnoses Closed left hip fracture S72.002A Encounter type: initial encounter Fall W19.XXXA Vitamin D deficiency E55.9 Type 2 diabetes mellitus without complication, without long-term current use of insulin E11.9 Diabetes mellitus complication status: without complication Diabetes mellitus care home insulin use: 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 Hypertension I10 Hypothyroidism, unspecified type E03.9 Hypothyroidism type: unspecified GERD (gastroesophageal reflux disease) K21.9 (1) Closed left hip fracture Encounter type: initial encounter Qualified Code(s): S72.002A - Fracture of unspecified part of neck of left femur, initial encounter for closed fracture (4) Type 2 diabetes mellitus Diabetes mellitus complication status: without complication Diabetes mellitus care home insulin use: 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 Qualified Code(s): E11.9 - Type 2 diabetes mellitus without complications (6) Hypothyroidism Hypothyroidism type: unspecified Qualified Code(s): E03.9 - Hypothyroidism, unspecified"
[2024-12-21] MEDS: GABAPENTIN 100 MG CAP PO SCH (21:07)
[2024-12-22 07:10] VITALS: BP 104/66; PULSE 78; RESP 16; TEMP 99.7; O2SAT 97
[2024-12-22 08:20] LABS: Hematocrit (blood only) 31.2 % (37.0-47.0); Hemoglobin 10.2 g/dl (12.0-16.0); Mean Corpuscular Hemoglobin 29.7 pg (25.0-34.0); Mean Corpuscular Volume 91.0 fL (80.0-100.0); Platelet Count 252 K/uL (130-400); RDW Standard Deviation 42.8 fL (36.4-46.3); Red Blood Count 3.43 M/uL (4.20-5.40); White Blood Count 9.25 K/ul (4.8-10.8)
[2024-12-22] MEDS: GABAPENTIN 100 MG CAP PO SCH (08:24)
[2024-12-22 09:27] LABS: Anion Gap 4.0 (3-11); Calcium 8.8 mg/dl (8.6-10.3); Carbon Dioxide 30.0 mmol/L (21-32); Chloride 100.0 mmol/L (98-107); Potassium 3.5 mmol/L (3.5-5.1); Sodium 134.0 mmol/L (136-145)
--- NOTE | 2024-12-22 09:32 | Orthopedic Progress Note ---
Date of Service December 22, 2024 Assessment & Plan (1) Closed left hip fracture: * Continue Current Treatment * Disposition: TBD * Daily treatment: Physical Therapy/ Occupational Therapy per protocol * Weight bearing status: WBAT, hip precautions * Continue to monitor for ABLA * Pain control * DVT prophylaxis, ASA BID * Office/hospital f/u 2 weeks for progress check and staple/suture removal * Remainder care per primary team * Stable for discharge from ortho standpoint, further planning per primary team Subjective .Active Problems: S/p left KRISTEN POD 2 69 y/o female s/p left KRISTEN. Doing well overall, pain managed and improved function. Denies fever/chills, chest pain/SOB, nausea/vomiting. Otherwise no complaints. Review of Systems All systems reviewed & are unremarkable except as noted in HPI & below. Physical Exam . Left hip surgical dressing CDI, not removed for exam. Otherwise no obvious deformity or overlying skin changes. Diffuse TTP proximal thigh and hip region. Otherwise no specific tenderness of distal thigh, lower leg, foot/ankle. AROM hip flexion intact. AROM foot/ankle intact. Sensation intact plantar/dorsal foot. Brisk capillary refill. Results & Data Results & Data Laboratory Results . Diagnostic Findings . PG Care Time/CCT Total # of Minutes Spent Total Time Spent with Patient: Total time spent is greater than 50% in coordination of care (as documented) at patient's floor/unit and/or counseling patient: Coding Level of Care Code 41414 Post Operative Follow-Up Diagnoses Closed left hip fracture S72.002A Encounter type: initial encounter (1) Closed left hip fracture Encounter type: initial encounter Qualified Code(s): S72.002A - Fracture of unspecified part of neck of left femur, initial encounter for closed fracture
[2024-12-22 09:33] LABS: Blood Urea Nitrogen 10.0 mg/dl (6-23); Creatinine Clr Calc Pharmacy 89.9 ml/min; Glucose 157.0 mg/dl (70-99(Fasting))
[2024-12-22] MEDS: POLYETHYLENE (MIRALAX) 17 GM PACK PO SCH (12:36)
--- NOTE | 2024-12-22 18:01 | Discharge Summary ---
Discharge Summary Date of Service December 22, 2024 Principal Dx & Hospital Course #1 = Principal Diagnosis (1) Closed left hip fracture: (2) Fall: (3) Vitamin D deficiency: (4) Type 2 diabetes mellitus: (5) Hypertension: (6) Hypothyroidism: (7) GERD (gastroesophageal reflux disease): Plan 69-year-old female admitted after mechanical fall resulted in a closed left hip fracture. She underwent total left hip arthroplasty with calcar replacement and left hip abductor repair on 12/[address] Seymour[address] completed postoperatively per family's request for altered mental status; imaging without acute intracranial pathology, AMS resolved and was likely secondary to anesthesia and pain medications. #Closed left hip fracture | S/p surgical repair | vitamin D deficiency - Acute blood loss anemia secondary to surgical intervention with hgb 10.2 - stable - Weight-bear as tolerated. Left total hip protocol. No active hip abduction for the next 6 weeks - Continue aspirin twice daily as DVT prophylaxis - Vit D low at 22.4 - continue cholecalciferol 25 mcg daily - Pain regimen: Tylenol 1000 mg Q8h PRN mild pain, tramadol 50 mg Q4h PRN mod- severe pain, gabapentin 100 mg QAM and 200 mg QPM - PT/OT recommended acute rehab #T2DM - well-controlled, A1c 5.9% in September 2024. Continue SSI #Hypertension well-controlled, continue losartan and amlodipine #Hypothyroidism TSH WNL in September 2024, continue Synthroid #GERD - well-controlled, continue H2 janeen and PPI VTE PPx: aspirin twice daily Dispo: Discharged to [facility] 12/22 Notes For Next Care Provider Medication Changes From Visit Aspirin 81 mg twice daily Admission HPI Per Admitting Provider 69-year-old white female who suffered a mechanical fall stating she tripped and fell. There was no syncope. Unfortunately she suffered a left hip fracture. Orthopedic consultation has been requested and is pending. She will need surgical repair which probably will take place tomorrow, December 19. She denies palpitations chest pain shortness of breath or actual syncope. No fever no chills. She is admitted for further evaluation and treatment Discharge Exam General: No acute distress, nondiaphoretic, well-developed, well-nourished. Skin: Left hip dressing clean dry intact. No significant peripheral edema. No rashes noted. Cardiac: Regular rate and rhythm without murmurs gallops or rubs. Pulm: Clear to auscultation bilaterally without wheezes, rales or rhonchi. Normal respiratory effort. 97% on room air. Abdominal: Soft, nontender, nondistended. Bowel sounds present. Neuro: A&O x3. No focal neurological deficits. MSK: Normal motor and sensory function in LE bilaterally. Discharge Plan Discharge Items Patient Disposition: Transfer Inpatient Rehab Fac Reason For Visit: MECHANICAL FALL, LEFT HIP FX Discharge Diagnosis: Left Hip Replacement for Fracture Condition on Discharge: Fair Activity: Per Instructions section Activity Comment: Follow/Obey hip precautions at all times. Weightbearing: Full weightbearing Weightbearing Comment: Weightbear as tolerated obeying hip precautions at all times. Non-emergency contact: Primary Care Provider and Surgeon Call non-emergency contact if: you have any medication questions, your symptoms worsen and your pain is not controlled Follow-up/Referrals: Ankur Love MD [Primary Care Provider] - (Follow-up in 1-2 weeks) Delbert Seymour MD [Physician] - (Orthopedic follow-up 2-3 weeks from surgery date.) Diet: Carb Consistent or DM2 Addtl Attending Provider Instructions: Xiomy, You were admitted to the hospital after a fall resulted in a closed left hip fracture. You had this surgically repaired with Dr. Seymour on 12/20. There were no complications from the surgery. You are being discharged to [facility] for inpatient rehab. You can take Tylenol as needed for mild pain, tramadol as needed for moderate/severe pain. Continue your other home medications as prescribed. Please follow-up with your PCP in 1-2 weeks. Please follow-up with orthopedics 2-3 weeks from your surgery date. Follow the additional instructions from your orthopedic team listed below. It was a pleasure taking care of you while you were in the hospital! Addtl Custodial Foreman Provider Instructions: ACTIVITY RECOMMENDATIONS: Diet: * You may resume previous diet. Physical Therapy: * Aggressive physical therapy is not usually needed. You will learn to take care of yourself safely and walk. * Follow the "Hip Precautions Instructions." * In some cases, the family welfare social work professor at the hospital will arrange to have a therapist come to your house for the first couple of weeks to help you learn these skills. * You need to practice on your own or with the help of a family member as needed. * When you learn these skills, most of the therapy can be done on your own. Home Exercise: * You were shown a series of exercises in the hospital. Do these exercises three to four times each day including the exercises you were shown in physical therapy. Walking: * Get up and walk several times each day. For the first four weeks, try not to stand or walk for more than one hour at a time. If you do stand or walk for more than one hour, you will not hurt anything, but your leg will likely swell. * As you feel comfortable, you may change from the walker or crutches to a cane and then to independent walking. MEDICATIONS: New Medicine: * You will likely be taking one or more of these medicines: 1. Tramadol - Take, as directed, when you need it, every six hours to control your pain. 2. Aspirin - Thins your blood to lessen the chance of forming a blood clot. * The most common side effects of pain medicine and iron are nausea and constipation. If nausea or constipation is too much of a problem or if you have any questions about your new medicines or doses, call [facility] at . We will try to help you manage these issues. "VERY IMPORTANT TO READ AND REVIEW" Pain: * The immediate post-operative period after hip replacement surgery is often quite painful. * You are given a prescription for pain medicine. You should take it, as directed, when you need it, especially before physical therapy and before going to bed. Pain that interferes with sleep is very common and can last several months. * You will likely need pain medicine for the first two to four weeks. It will not stop all of the pain. The pain will lessen and as you feel better, you may change to milder pain medicine such as Tylenol. * The most common side effects of pain medicine are nausea and constipation, so don't take more than you need. SPECIAL CARE INSTRUCTIONS: TEDs/Elastic Stockings: * The white elastic stockings help limit swelling and prevent blood clots from forming in your legs. The more you wear them, the more they work. * Wear them for six weeks. Incision Site Care: * Remove dressing postoperative day 2 and then shower. Keep direct shower pressure off the incision site. * After showering, cover sheri with dry gauze and change daily or more frequently if the dressing is getting saturated with drainage. * May completely stop using bandage if wound is dry and no drainage * [place] are removed between 2 and 3 weeks post-op. If your follow-up appointment is made before 2 weeks, please have your appointment re- scheduled. It is too early to remove the sheri. Prevention of Infection: * Take antibiotics one hour before any dental cleaning, dental work, urological procedure, gastrointestinal procedure or any invasive surgery in order to prevent your new joint from getting infected. * You may get the antibiotics from the doctor performing the procedure or you may call our office at before and we will call in a pres cription to the pharmacy of your choice. Things to Watch For: * Drainage from the incision site that occurs more than one week after your surgery. * Severely increased leg pain or swelling. * Increased redness at the incision site. * Fever above 102 degrees Fahrenheit. * Unusual chest pain or shortness of breath. * Unusual pain or burning with urination. Call [facility] at with any of the above problems or if you have any questions about your medicines or recovery. FOLLOW UP VISIT: Make an appointment to see your doctor for approximately two weeks after surgery for a progress check and staple removal by calling the office at . Pending Studies at Discharge: No Stand-Alone Forms: My [facility] Skilled Items Patient informed of condition?: Yes DNR: No Discharge Level of Care: Acute rehab Communicable Disease: No Discharge Prognosis: Stable Lines: None Urinary Catheter: No Medications and DC Order Prescriptions: New aspirin 81 mg Tablet,Delayed Release (Dr/Ec) 81 mg PO BID Qty: 60 0RF Continued montelukast 10 mg tablet 10 mg PO QAM Qty: 100 3RF losartan 50 mg tablet 50 mg PO HS Qty: 90 3RF Rx Instructions: TAKE 1 TABLET BY MOUTH AT BEDTIME amlodipine 5 mg tablet 5 mg PO HS Qty: 90 3RF rosuvastatin 20 mg tablet 20 mg PO HS Qty: 90 3RF Rx Instructions: PER PT "LOSE PILL BLT ON CRUISE BEGINNING OF OCTOBER, HAVE NOT REFILLED YET". TAKE 1 TABLET BY MOUTH AT BEDTIME Xolair 150 mg/mL syringe 300 mg subcut .COMPLEX Qty: 2 11RF Rx Instructions: Inject 300 mg subcut EVERY 4 WEEKS APPROVED GOOD 05/27/24-07/08/25 [id number] gabapentin 100 mg capsule 200 mg PO UD Qty: 540 3RF Rx Instructions: TAKES 200 MG QAM, THEN 400 MG QPM. Magic Mouthwash 300 mL mouthwash 5 ml mucous membrane Q4H PRN (Reason: oral pain) Qty: 300 0RF Rx Instructions: Benadryl 12.5 mg/5 mL oral elixir; Maalox 200 mg-200 mg-20 mg/5 mL oral suspension; Xylocaine Viscous 2 % mucosal solution;[Generic substitution ok] 1:1:1 compound Per 300 mL Swish and spt Januvia 100 mg tablet 100 mg PO QAM Qty: 90 3RF hydroxychloroquine [Plaquenil] 200 mg tablet 200 mg PO BID Qty: 180 3RF folic acid 1 mg tablet 3 mg PO HS Qty: 90 3RF solifenacin [Vesicare] 5 mg tablet 5 mg PO QPM Qty: 90 3RF Rx Instructions: PER PT "LOST PILL BLT ON , BEGINNING OF OCTOBER, PHARMACY WILL REFILL 12/19/24". tramadol 50 mg tablet 50 mg PO DAILY PRN (Reason: Pain) Qty: 10 0RF levothyroxine [Synthroid] 137 mcg tablet 137 mcg PO QAM Qty: 90 1RF pantoprazole [Protonix] 40 mg tablet,delayed release (DR/EC) 40 mg PO BID Qty: 180 0RF famotidine 40 mg tablet 40 mg PO BID Qty: 60 5RF cholecalciferol (vitamin D3) 25 mcg (1,000 unit) capsule 25 mcg PO DAILY vitamin B complex Capsule 1 cap PO DAILY acetaminophen 650 mg Tablet Extended Release 1,300 mg PO Q12H amoxicillin 500 mg tablet 2,000 mg PO UD PRN (Reason: PRIOR TO DENTAL APPT.) Rx Instructions: 2,000 mg orally ;500 mg PO 4 tablets one hour prior to procedure ; cetirizine [Zyrtec] 10 mg Tablet 10 mg PO DAILY PRN (Reason: Allergic Symptoms) hydrochlorothiazide 25 mg tablet 25 mg PO QAM PRN (Reason: Fluid Retention) multivitamin Tablet 1 tab PO QPM calcium carbonate 500 mg calcium (1,250 mg) Tablet 1,000 mg PO BID Gaviscon Extra Strength 160-105 mg Tablet,Chewable 1 tab PO DAILY PRN (Reason: GAS DISCOMFORT) duloxetine 30 mg capsule,delayed release(DR/EC) 30 mg PO DAILY Discharge Orders: Discharge Order (Routine); Ordered 12/22/24 Ordered By: Isabel Hinojosa Admission Data Admit Date/Time: 12/18/24 15:12 Attending Provider: Yuan Lawson Admit Provider: Davey Peacock Primary Care Provider: Aknur Love Other Providers: Delbert Seymour; Davey Peacock; [place] Other Interventions: Discharge Summary Assessment (RN) Last Done: 12/22/24 11:48 Hospital Stay Data Consultations 12/18/24 14:03 ED Decision to Admit Stat 12/18/24 14:06 Consult Orthopedic Surgery Stat 12/18/24 17:53 Consult Orthopedic Surgery Routine Procedures Performed Operation Date: 12/20/24 11:00 Actual Procedures p Total Hip Arthroplasty Cemented(Left) - Delbert Seymour MD Diagnostic Imagining Performed Hip/Pelvis X-Ray 12/18/24 12:26 XR hip BRIAN 2v w pelvis CLINICAL HISTORY: L hip pain s/p fall COMPARISON STUDY: CT of the abdomen and pelvis August 02, 2023. Left hip radiographs October 09, 2024. FINDINGS: Sacroiliac joints and symphysis pubis are intact. No right hip fracture is present. There is an acute impacted mildly displaced intertrochanteric fracture of the left femur which extends to the base of the femoral neck. Severe left hip osteoarthritis is noted. IMPRESSION: 1. Acute impacted mildly displaced intertrochanteric fracture of the left femur which extends to the base of the femoral neck. 2. Severe left hip osteoarthritis. ACT 112: Negative or not required by law. Electronically signed by: Jimenez Huff M.D. 12/18/2024 1:39 PM Chest X-Ray 12/18/24 14:09 PORTABLE SUPINE AP CHEST RADIOGRAPH CLINICAL HISTORY: Preoperative evaluation. COMPARISON STUDY: Chest radiograph and chest CT January 19, 2024. FINDINGS: Left shoulder arthroplasty is incidentally noted. There is no pneumothorax or pleural effusion. Cardiomediastinal silhouette is stable. There is no evidence for pulmonary edema. There is no consolidation. IMPRESSION: No acute cardiopulmonary findings. ACT 112: Negative or not required by law. Electronically signed by: Jimenez Huff M.D. 12/18/2024 3:[address] 12/18/24 14:[address] WITHOUT CONTRAST CLINICAL HISTORY: Evaluate fracture, w/3D recon please. COMPARISON STUDY: Left hip radiographs performed earlier today. TECHNIQUE: Axial images of the left hip were obtained without IV contrast. Sagittal and coronal reformats were viewed. A dose lowering technique was utilized adhering to the principles of ALARA. FINDINGS: There is an acute impacted mildly displaced comminuted intertrochanteric fracture of the left femur. Several bone fragments are present. Severe joint space narrowing of the left hip with subchondral sclerosis and cystic change is present. There are no acute fractures within visualized portions of the left hemipelvis. There is sigmoid diverticulosis with evidence for acute diverticulitis IMPRESSION: 1. Acute comminuted impacted mildly displaced intertrochanteric fracture of the left femur. 2. Severe left hip osteoarthritis. ACT 112: Negative or not required by law. Electronically signed by: Jimenez Huff M.D. 12/18/2024 3:09 PM Hip X-Ray 12/20/24 09:56 XR hip LT min 2V CLINICAL HISTORY: Post-Operative implant position COMPARISON: 12/18/2024 FINDINGS: Left hip prosthesis shows no hardware complication. There is expected soft tissue gas. Skin sheri are present. IMPRESSION: Unremarkable postoperative exam. ACT 112: Negative or not required by law. Electronically signed by: Rusty Michaels M.D. 12/20/2024 10:[address] 12/20/24 18:43 CT head without contrast History: Behavioral changes Comparison: 01/19/2024 Technique: Using multidetector thin collimation helical acquisition technique, axial, coronal and sagittal CT images from the skull base to the vertex were obtained without intravenous contrast. Dose reduction techniques were achieved by using automatic exposure control and/or adjustment of mA and/or kV according to patient size and/or use of iterative reconstruction technique. Findings: No intracranial hemorrhage, mass-effect, or midline shift. The ventricles are proportionate to the cerebral sulci. The valencia to white matter differentiation of the cerebral hemispheres is preserved. The basal cisterns are patent. There are 2 punctate calcifications in the right parietal lobe white matter that are unchanged. The visualized paranasal sinuses are clear. Mastoid air cells are clear. Impression: No acute intracranial pathology. Electronically signed by Lev Ferguson 12-20-2024 7:36 PM Pending Results Patient Have Any Pending Studies at Discharge: No Discharge Instructions Given to Patient (Per Discharging Provider) Xiomy You were admitted to the hospital after a fall resulted in a closed left hip fracture. You had this surgically repaired with Dr. Seymour on 12/20. There were no complications from the surgery. You are being discharged to [facility] for inpatient rehab. You can take Tylenol as needed for mild pain, tramadol as needed for moderate/severe pain. Continue your other home medications as prescribed. Please follow-up with your PCP in 1-2 weeks. Please follow-up with orthopedics 2-3 weeks from your surgery date. Follow the additional instructions from your orthopedic team listed below. It was a pleasure taking care of you while you were in the hospital! Supervising Physician Co-Signing Physician Notes chart reviewed, case d/w S Micaela MOYA, as above. Total Time Total Time Spent Total Time Spent (In Minutes): Greater than 30 minutes spent completing this discharge process including direct patient care, medication reconciliation, documentation, review of labs and images, and coordination of care. Coding Level of Care Code 08406 INP/OBS DISCH >30 MIN Diagnoses Closed left hip fracture S72.002A Encounter type: initial encounter Fall W19.XXXA Vitamin D deficiency E55.9 Type 2 diabetes mellitus without complication, without long-term current use of insulin E11.9 Diabetes mellitus complication status: without complication Diabetes mellitus skilled nursing insulin use: without manager long term care use Hypertension I10 Hypothyroidism, unspecified type E03.9 Hypothyroidism type: unspecified GERD (gastroesophageal reflux disease) K21.9
== END 2024-12-22 13:11 | DRG 522 ==
LOC: SUATTDRO → ED 12:15 → 3N 15:12 → SUATTDRO 15:12 → 3N 17:09